=== PATIENT | male | born 1940 | race Caucasian/White ===

== ENCOUNTER 2019-01-31 00:44 | Outpatient (CLI) | payer MEDICARE, MEDICAID, SELFPAY ==
--- NOTE | 2019-01-31 14:45 | DI.MRI_ITS ---
SYMPTOMS/DIAGNOSIS: NECK PAIN, CERVICAL SPONDYLOSIS WITHOUT MYELOPATHY, M47.812 MRI OF THE CERVICAL SPINE: Comparison is made with plain films from [facility] dated . T 1, T 2, STIR, FLAIR and T 2 3D sagittal and gradient echo axial sequences were performed. The exam is limited by patient motion. There are degenerative changes at C 1 - 2. There are small endplate osteophytes which are eccentric toward the right at C 2 - 3. 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 There is slight disc bulging at C 4 - 5. There are small endplate osteophytes and mild disc bulging at C 5 - 6. At C 6 - 7, there is a focal central disc protrusion which does not appear to impinge on the cord. The marrow signal and cord signal appear normal. IMPRESSION: Small central disc protrusion at C 6 - 7 without definite cord impingement. Mild degenerative disc changes. Limited exam due to patient motion.
== END 2019-01-31 01:04 ==
PROVIDERS: PCP Neuromusculoskeletal Medicine & OMM; Visit Provider Nurse Practitioner Family
DX: M54.2 Cervicalgia (principal); M47.812 Spondylosis without myelopathy or radiculopathy, cervical region; M50.223 Other cervical disc displacement at C6-C7 level
CPT/HCPCS: 72141

== ENCOUNTER 2019-03-22 08:25 | Outpatient (CLI) | payer MEDICARE, MEDICAID, SELFPAY | END 2019-03-22 08:45 | PROVIDERS: PCP Neuromusculoskeletal Medicine & OMM; Visit Provider Internal Medicine Cardiovascular Disease | DX: I25.10 Atherosclerotic heart disease of native coronary artery without angina pectoris (principal); I10 Essential (primary) hypertension; E78.5 Hyperlipidemia, unspecified; J44.9 Chronic obstructive pulmonary disease, unspecified; E11.9 Type 2 diabetes mellitus without complications | CPT/HCPCS: 99205; 93005; 93010 ==

== ENCOUNTER 2019-06-02 09:39 | Emergency (ER) | payer MEDICARE, MEDICAID, SELFPAY ==
[2019-06-02] VITALS (7 sets, daily range): BP systolic 116–124; BP diastolic 70–79; PULSE 69–75; RESP 20; TEMP 36.7–37.3; O2SAT 90–98
--- NOTE | 2019-06-02 10:10 | ED.GENADUL_ITS ---
Discharge Plan Disposition Patient Disposition: HOME Condition: Stable Discharge Details Chief Complaint: Orthopedic Clinical Impression: Acute leg pain, Abdominal pain, Fall Primary Care Provider: Amarjit Galeana ED Provider: Mayuri Martin Home Meds and New Rx's Prescriptions: No Action multivitamin Tablet 1 tab PO DAILY RF: 0 furosemide 40 mg Tablet 40 mg PO DAILY RF: 0 metoprolol succinate 50 mg Tablet Extended Release 24 Hr 50 mg PO DAILY RF: 0 omeprazole 40 mg Capsule,Delayed Release(Dr/Ec) 40 mg PO DAILY RF: 0 ferrous sulfate 325 mg (65 mg iron) Tablet 325 mg PO DAILY RF: 0 gabapentin 300 mg Capsule 600 mg PO BID RF: 0 pravastatin 20 mg Tablet 20 mg PO DAILY RF: 0 sertraline 50 mg Tablet 50 mg PO DAILY RF: 0 Flovent HFA 110 mcg/actuation Hfa Aerosol Inhaler 2 puff INHALATION BID RF: 0 Incruse Ellipta 62.5 mcg/actuation Blister With Device 1 inh INHALATION DAILY RF: 0 levothyroxine 150 mcg capsule 200 mcg PO DAILY RF: 0 acetaminophen 500 mg capsule 1,000 mg PO Q8H RF: 0 nitroglycerin 0.4 mg tablet, sublingual 0.4 mg SL Q5M PRNRF: 0 rifampin 300 mg capsule 300 mg PO BID RF: 0 sennosides [senna] 8.6 mg tablet 17.2 mg PO BID PRNRF: 0 ciprofloxacin HCl 500 mg Tablet 500 mg PO BID RF: 0 aspirin [Aspirin Low Dose] 81 mg Tablet,Delayed Release (Dr/Ec) 81 mg PO BID RF: 0 Discharge Instructions Instructions: Leg Pain (ED) Additional Instructions: Please drink plenty of fluids. Rest activities as tolerated. Walk with walker. Continue your daily medications. Recheck with your primary care doctor in the next 2 to 3 days. Your imaging studies show an abnormality to the distal esophagus which requires further follow-up with your primary care doctor. Please discuss these results with your PCP. There are no fractures of your leg today. For any increase in pain, difficulty walking, increase in ill feeling or alarming symptoms have immediate reevaluation as discussed Medical Decision Making Is a 78-year-old patient who presents after a fall which occurred 3 days ago. Patient reports a slip and fall onto his right side. Patient reports striking his right shoulder and right leg. Patient denies obviously striking head or neck. Patient does report primary complaint for which he is requesting evaluation in the emergency room today relates to left leg pain. Patient is complaining of left knee and tib-fib pain. Patient has a complicated medical history including coronary artery disease, anemia, neck pain, back pain, chronic pain in legs, COPD, depression, diabetes type 2, DJD, history of DVTs, history of GERD, hypertension, hyperlipidemia, hypothyroidism, obesity, obstructive sleep apnea. Patient is compliant with his daily medications. Patient also has a complicated surgical history specifically patient has had several lower extremity surgeries and has large surgical scars. Most recent of patient surgeries was done in February in [facility] he had an infection in the lower leg on the left at the area of the sharif and ultimately needed a cleanout of his hardware and had a large surgical flap. Patient reports he is now on chronic antibiotics for this reason specifically Cipro and rifampin. Patient's primary concern today is left leg pain resulting after his fall 3 days ago. Patient has been able to ambulate at home with the use of a walker. Patient is complaining of left knee and sharif pain as well as pain behind the left leg extending from the hamstring to the calf. Patient is requesting x-rays of his lower leg. Patient is also complaining of left shoulder pain. On exam patient has significantly chronic changes of the lower legs with large surgical scars and soft tissue deformities. Bilateral lower leg edema. Patient does have tenderness of the left knee as well as the sharif area. Mild warmth is present at this site which patient's reports is his baseline. Was seen by his surgeon earlier in the week and was advised that they had no significant concerns at this time. Labs ordered as well as x-rays. Ultrasound ordered of left leg. Given patient's use of blood thinner and his obvious fall will check patient's head and cervical spine. Patient agrees with this plan of care. Patient's ultrasound FINDINGS: Duplex evaluation of deep venous system of the left lower extremity was performed according to the usual protocol. There is no evidence of deep venous thrombosis. No Sanders's cyst identified. Note is made of left calf edema which is nonspecific. There is subcutaneous f luid collection in the proximal calf, this is nonspecific and predominantly cystic with minimal septations and measures up to 10 x 2 x 6 cm in diameter. No increased vascular flow identified associated with this finding. IMPRESSION: No evidence of DVT. Left calf fluid collection noted which is nonspecific and of uncertain age. Patient x-rays are unremarkable for identified fractures. [id number] -discussed with Dr. Chelsy Barnes who also evaluated the patient at this time and recommends oral oxycodone as well as Valium for pain relief. Patient does take daily oxycodone. Recommend urinalysis to be sure there is no identifiable infection and consider CT of chest and abdomen for patient's complaints of abdominal pain. Otherwise Dr. Barnes feels patient's pain in the leg is likely attributed to the fall 3 days ago and is likely muscle strain on chronic pain. EXAM: CT CHEST/ABD/PEL WO CLINICAL HISTORY: pain after fall. on blood thinner TECHNIQUE: CT examination of the chest, abdomen, and pelvis was performed without contrast administration due to patient's reported history of contrast allergy. COMPARISON: No exams were available for comparison FINDINGS: There is mild cardiac enlargement. There are trace bilateral pleural effusions. No gross pulmonary consolidation or pulmonary edema. Tracheobronchial tree appears intact. No vascular abnormality seen by noncontrast criteria. Esophageal wall appears thickened, particularly distally. Possibility of esophagitis or esophageal tumor would have to be raised; endoscopic correlation should be considered. No mediastinal or hilar adenopathy. No pneumothorax. No fracture seen involving the bony thorax. Liver and spleen have an unremarkable noncontrast appearance. Gallbladder and bile ducts are CT normal. Pancreas is atrophic but otherwise unremarkable. Spleen appears normal. Adrenals appear normal. 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 Abdominal aorta is of normal diameter. No abdominal or pelvic adenopathy. No focal bowel pathology. No significant abdominal wall hernia. No free intraperitoneal air. Trace intraperitoneal fluid noted which is nonspecific. Significant bony lesion identified on scanning of the abdomen and pelvis apart from degenerative changes of the hips and lumbosacral spine. IMPRESSION: Esophageal wall thickening is noted involving the mid to distal esophagus; inflammatory or neoplastic process should be considered. Correlation with esophagoscopy recommended. No evidence of obstructive process. CT findings were discussed with the patient recommending and reporting that esophageal findings will require further evaluation with primary care doctor. At this time patient's urinalysis had returned with inability to do full urinalysis due to dark coloration of the urine. I have offered patient IV fluids but at this time he declines would prefer to hydrate by mouth. Patient was able to tolerate multiple cups of fluid without difficulty. At this time patient is feeling well. He was provided pain medication as well as muscle relaxant. Patient does feel he can ambulate without difficulty. I find no admittable diagnosis at this time. Family feel comfortable discharge home. The patient was stable and requested discharge. Prior to discharge, my usual and customary return precautions were reviewed with the patient - this included follow-up instructions and reasons to return to the Emergency Department if conditions worsens, does not improve as expected, or other new concerns arise. HPI General Date/Time Provider Initiated Documentation: 06/02/19 09:53 . HPI Narrative: This is a 78-year-old patient who presents to the emergency room for complaints of fall 3 days ago. Patient slipped and fell landing on his right side. Patient is complaining of right shoulder pain posteriorly. Patient primarily concerned with left leg pain. Patient reports complicated surgical history involving both of his lower legs. Patient has multiple reconstructive surgeries including rods and plates with associated infections requiring cleanout surgery. Patient reports most recent surgery in February on the left leg. Patient reports since his slip and fall 3 days ago he has had significant left leg pain. Patient concerned the possibility of fracture. Patient also reports an associated anorexia for the last 3 days having difficulty eating due to mild nausea. Patient is on a blood thinner denies obviously striking his head. Patient does report neck and right shoulder pain. Denies difficulty breathing or shortness of breath or wheezing. Patient denies fevers or chills. Denies abdominal pain. Denies chest pain with deep breathing. Patient is able to ambulate with use of walker however does report persistent left leg pain and he primarily complains of pain in the backside of the leg from the hamstring to the calf. Patient has chronic deformities of his bilateral lower legs therefore swelling is difficult to assess. Related Data Home Medications Medication Instructions Recorded Confirmed ferrous sulfate 325 mg PO DAILY 03/03/19 06/02/19 fluticasone propionate [Flovent 2 puff INHALATION BID 03/03/19 06/02/19 HFA] furosemide 40 mg PO DAILY 03/03/19 06/02/19 gabapentin 600 mg PO BID 03/03/19 06/02/19 metoprolol succinate 50 mg PO DAILY 03/03/19 06/02/19 multivitamin 1 tab PO DAILY 03/03/19 06/02/19 omeprazole 40 mg PO DAILY 03/03/19 06/02/19 pravastatin 20 mg PO DAILY 03/03/19 06/02/19 sertraline 50 mg PO DAILY 03/03/19 06/02/19 umeclidinium [Incruse Ellipta] 1 inh INHALATION DAILY 03/03/19 06/02/19 acetaminophen 500 mg capsule 1,000 mg PO Q8H cap 03/22/19 06/02/19 levothyroxine 150 mcg capsule 200 mcg PO DAILY 03/22/19 06/02/19 nitroglycerin 0.4 mg sublingual 0.4 mg SL Q5M PRN 03/22/19 06/02/19 tablet rifampin 300 mg capsule 300 mg PO BID cap 03/22/19 06/02/19 sennosides 8.6 mg tablet 17.2 mg PO BID PRN tab 03/22/19 06/02/19 aspirin [Aspirin Low Dose] 81 mg PO BID 06/02/19 06/02/19 ciprofloxacin HCl 500 mg PO BID 06/02/19 06/02/19 Allergies Allergy/AdvReac Type Severity Reaction Status Date / Time Iodine and Iodide Containing Allergy Unverified 06/02/19 09:51 Produc General Stated Complaint: Orthopedic SAADIA: 3 Review of Systems All systems reviewed & are unremarkable except as noted in HPI and below Constitutional Constitutional: Denies chills, Denies fatigue, Denies fever(s), Denies headache(s) and Denies malaise ENT Ears, Nose, Mouth, and Throat: Denies headache(s) and Reports neck pain Cardiovascular Cardiovascular: Denies chest pain, Denies dyspnea and Denies dyspnea on exertion Respiratory Respiratory: Reports cough, Denies dyspnea and Denies dyspnea on exertion Gastrointestinal Gastrointestinal: Denies abdominal pain, Denies diarrhea, Reports nausea and Denies vomiting Genitourinary Genitourinary: Denies dysuria Musculoskeletal Musculoskeletal: Reports back pain, Reports limited range of motion, Reports neck pain, Denies numbness and Denies tingling Integumentary/Breasts Skin/Breast: Reports erythema Neurologic Neurologic: Denies headache(s), Denies numbness and Denies tingling Endocrine Endocrine: Denies fatigue [facility] Medical History Acute hypoxemic respiratory failure (Acute) Anemia (Chronic) Atherosclerosis of coronary artery without angina pectoris (Acute) Bilateral edema of lower extremity (Acute) CAD (coronary artery disease) (Chronic) Cervical disc disorder (Acute) Cervical facet joint syndrome (Acute) Cervical spondylosis without myelopathy (Acute) Cervico-occipital neuralgia (Acute) Chronic infection of prosthetic knee (Acute) Coagulase-negative staphylococcal infection (Acute) COPD (chronic obstructive pulmonary disease) (Chronic) Demand ischemia (Acute) Depression (Chronic) Depressive disorder (Acute) Diabetes mellitus type II, controlled, with no complications (Acute) DJD (degenerative joint disease) (Chronic) DJD (degenerative joint disease) of knee (Acute) DVT (deep venous thrombosis) (Chronic) GERD (gastroesophageal reflux disease) (Chronic) HTN (hypertension) (Chronic) Hyperlipidemia (Acute) Hyperplasia, prostate (Acute) Hypothyroidism (Chronic) Infection of left knee (Acute) Intermittent claudication of lower extremity due to atherosclerosis (Acute) NSTEMI (non-ST elevated myocardial infarction) (Acute ~02/2019) Obesity (Chronic) Occipital neuralgia (Acute) CARIDAD (obstructive sleep apnea) (Chronic) Pneumonia (Acute) Reactive airway disease (Acute) Shock (Acute) Social History Smoking/Tobacco Use Status: Never Substance use type: does not use Do you feel safe at home: Yes Do you feel safe in your relationship?: Yes Exam Narrative Exam Narrative: CONST: Healthy appearing patient, in no acute distress. Well hydrated. Alert and alert. HENMT: Head nomocephalic, normal to inspection. Atraumatic. Hearing grossly normal. External ear canal no erythema or swelling. TM normal bilaterally. Nose normal to inspection. No rhinnorhea. Normal facial exam. Oral mucosa normal. Tounge normal. Dentition normal. Normal posterior oropharynx. Uvula midline. EYES: General normal appearance. Alignment normal. Eyelids normal. Conjunctiva normal. Sclera normal. PERRL. NECK: Normal visual inspection. FROM. No lymphadenopathy. Trachea midline. Mild midline tenderness as well as right lateral tenderness of the neck musculature. CHEST: Normal insepection of the chest. No chest or rib pain with palpation. RESP: Normal respiratory effort. Speaking full sentences. No cough. No wheezing. No retractions. Clear to auscaltation. Breath sound equal and present bilaterally. CARDIO: No JVD. Normal PMI. Regular Rate. Regular Rhythm. Normal peripheral pulses. GI: Normal inspection of abdomen. No distension. Soft. Nontender. Bowel sounds present in all 4 quadrants. No rebound. No gaurding. MUSCULOSKELETAL: Mild right scapula pain with palpation. Full range of motion of the right shoulder. Patient with chronic deformities of the lower legs bilaterally large surgical scars bilaterally. Edematous bilateral lower legs which appear chronic. Erythema and warmth notable of the left anterior leg from the knee to the pretibial sharif. Patient points to the knee as site of pain and posterior leg as site of pain. Patient does have any pain with palpation. Limited range of motion of left knee. Patient with calf pain with palpation. Pulses are intact distally bilaterally and equal. SKIN: Normal. Dry. No rashes. NEURO: Alert and awake. Speech clear. PSYCH: Normal affect. Cooperative. Course Vital Signs Vital signs: Vital Signs Temperature 36.7 C 06/02/19 09:46 Pulse 75 06/02/19 09:46 Respiratory Rate 20 06/02/19 09:46 Blood Pressure 116/70 06/02/19 09:46 Pulse Oximetry 98 06/02/19 09:46 Temperature 36.7 C 06/02/19 09:46 Temperature Source Skin 06/02/19 09:46 Pulse 75 06/02/19 09:46 Respiratory Rate 20 06/02/19 09:46 Respiratory Effort 06/02/19 09:49 Blood Pressure 116/70 06/02/19 09:46 Pulse Oximetry 98 06/02/19 09:46 Oxygen Delivery Method Room Air 06/02/19 09:46 Oxygen Flow Rate 0 06/02/19 09:46 Pain Level 4 06/02/19 09:46 Comment 06/02/19 09:46
[2019-06-02 10:44] LABS: Abs Immature Grans 0.01 k/cumm (0.0-0.09); Absolute Basophil Count 0.01 k/cumm (0.0-0.2); Absolute Eosinophil Count 0.06 k/cumm (0.0-0.7); Absolute Lymphocyte Count 0.71 k/cumm (1.2-3.4); Absolute Monocyte Count 0.56 k/cumm (0.11-0.7); Absolute Neutrophil Count 4.29 k/cumm (1.2-6.7); Basophils % 0.2; Eosinophils % 1.1; HCT 33.2 % (40.0-50.0); HGB 10.6 g/dL (13.5-17.5); Immature Grans % 0.2; Lymphocytes % 12.6; Mean Corp. HGB Concentration 31.9 g/dL (32.0-36.0); Mean Corpuscular Volume 94.1 fL (80-95); Mean Platelet Volume 9.9 fL (8.0-11.0); Monocytes % 9.9; Platelet Count 177 x1000/uL (130-400); RBC 3.53 m/cumm (4.50-6.00); White Blood Cell Count 5.64 k/cumm (4.4-10.8)
[2019-06-02 10:58] LABS: ALT 13 U/L (16-63); AST 16 U/L (15-37); Albumin 2.6 g/dL (3.4-5.0); Alkaline Phosphatase 83 U/L (46-116); Anion Gap 10.1 mmol/L (3-11); BUN 11 mg/dL (7-18); Bilirubin, Total 0.5 mg/dL (0.2-1.0); CO2 25.9 mmol/L (21.0-32.0); CREATININE 0.64 mg/dL (0.70-1.30); Calcium 8.6 mg/dL (8.5-10.1); Chloride 104 mmol/L (98-107); Glucose 117 mg/dL (74-106); Potassium 4.2 mmol/L (3.5-5.1); Sodium 140 mmol/L (136-145); Total Protein 7.3 g/dL (6.4-8.2)
--- NOTE | 2019-06-02 10:58 | DI.CT_ITS ---
EXAM: CT HEAD CERVICAL SPINE WO CLINICAL HISTORY: fall, on blood thinner TECHNIQUE: COMPARISON: No exams were available for comparison FINDINGS: CT examination cervical spine was performed without contrast administration with multi slice acquisit ion multiplanar reconstruction. There are marked degenerative changes of the cervical spine prominen t hypertrophic facet and endplate changes and multilevel disc space loss of height. There is no evid ence of acute fracture or dislocation. Tracheolaryngeal structures appear intact. Visualized lung a pices are clear. Noncontrast cranial CT was performed. There is moderate generalized cerebral atrophy and there are m ild patchy areas of decreased attenuation in periventricular white matter bilaterally consistent with microvascular ischemic changes. More focal decreased attenuation is also noted in basal ganglia on the right which may represent an infarct of uncertain age. No evidence of acute intracranial hemorrh age mass effect or midline shift. The orbital and temporal bone structures appear intact. Minimal mucoperiosteal thickening of the par anasal sinuses noted, mastoid air cells appear clear. No calvarial fracture seen. IMPRESSION: No evidence of acute cervical spine injury. No evidence of acute intracranial injury or hemorrhage.
--- NOTE | 2019-06-02 11:06 | DI.RAD_ITS ---
EXAM: XR THORACIC SPINE COMPLETE CLINICAL HISTORY: pain, after fall TECHNIQUE: COMPARISON: No exams were available for comparison FINDINGS: Four views were obtained. There are degenerative changes of thoracic spine. No acute fracture seen. IMPRESSION:
--- NOTE | 2019-06-02 11:09 | DI.RAD_ITS ---
EXAM: XR SHOULDER RT COMPLETE 2+V CLINICAL HISTORY: fall TECHNIQUE: COMPARISON: No exams were available for comparison FINDINGS: Four views were obtained. There are degenerative changes of the acromioclavicular and glenohumeral j oints. There is no evidence of fracture or dislocation. IMPRESSION:
--- NOTE | 2019-06-02 11:16 | DI.RAD_ITS ---
EXAM: XR KNEE LT 3V AP,LAT,RASHAAD CLINICAL HISTORY: pain, fall TECHNIQUE: COMPARISON: XR TIB/FIB LT from 06/02/2019 FINDINGS: Five views of the knee and 3 additional views of the leg were obtained. There is a total knee joint replacement with long intramedullary component of tibia. There are extensive heterotopic bony change s of region of the knee. Long femoral component also noted, cerclage wire also present associated wi th the femoral component. No evidence of acute fracture.. IMPRESSION:
--- NOTE | 2019-06-02 11:30 | DI.US_ITS ---
EXAM: US LOWER EXTREMITY VENOUS LT CLINICAL HISTORY: pain, r/o DVT TECHNIQUE: Ultrasound performed using standard protocol. COMPARISON: No exams were available for comparison FINDINGS: Duplex evaluation of deep venous system of the left lower extremity was performed according to the us ua protocol. There is no evidence of deep venous thrombosis. No Sanders's cyst identified. Note is made of left calf edema which is nonspecific. There is subcutaneous fluid collection in the proximal calf, this is nonspecific and predominantly cystic with minimal septations and measures up t o 10 x 2 x 6 cm in diameter. No increased vascular flow identified associated with this finding. IMPRESSION: No evidence of DVT. Left calf fluid collection noted which is nonspecific and of uncertain age.
--- NOTE | 2019-06-02 11:30 | DI.RAD_ITS ---
EXAM: XR CHEST 2V PA LATERAL CLINICAL HISTORY: cough TECHNIQUE: COMPARISON: No exams were available for comparison FINDINGS: Cardiac size is within normal limits. There is mild elevation of the diaphragm on the right. The leilani ngs are generally clear. No pleural effusion seen. IMPRESSION: No evidence of acute process.
--- NOTE | 2019-06-02 13:00 | DI.CT_ITS ---
EXAM: CT CHEST/ABD/PEL WO CLINICAL HISTORY: pain after fall. on blood thinner TECHNIQUE: CT examination of the chest, abdomen, and pelvis was performed without contrast administr ation due to patient's reported history of contrast allergy. COMPARISON: No exams were available for comparison FINDINGS: There is mild cardiac enlargement. There are trace bilateral pleural effusions. No gross pulmonary consolidation or pulmonary edema. Tracheobronchial tree appears intact. No vascular abnormality see n by noncontrast criteria. Esophageal wall appears thickened, particularly distally. Possibility of esophagitis or esophageal t umor would have to be raised; endoscopic correlation should be considered. No mediastinal or hilar adenopathy. No pneumothorax. No fracture seen involving the bony thorax. Liver and spleen have an unremarkable noncontrast appearance. Gallbladder and bile ducts are CT norm al. Pancreas is atrophic but otherwise unremarkable. Spleen appears normal. Adrenals appear normal . 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 Abdominal aorta is of normal diameter. No abdominal or pelvic adenopathy. No focal bowel pathology. No significant abdominal wall hernia. No free intraperitoneal air. Trace intraperitoneal fluid noted which is nonspecific. Significant bony lesion identified on scanning of the abdomen and pelvis apart from degenerative holloway ges of the hips and lumbosacral spine. IMPRESSION: Esophageal wall thickening is noted involving the mid to distal esophagus; inflammatory or neoplastic process should be considered. Correlation with esophagoscopy recommended. No evidence of obstructi ve process.
[2019-06-02] MEDS: oxyCODONE 5 MG TAB PO (14:18)
[2019-06-02] MEDS: diazePAM 5 MG TAB PO (14:18)
[2019-06-02 14:58] LABS: Clarity Clear (Clear); Specific Gravity 1.027 (1.005-1.025)
[2019-06-02 14:59] LABS: Bilirubin Color Interference (Negative); Blood Color Interference (Negative); Glucose Color Interference mg/dL (Negative); Ketones Color Interference mg/dL (Negative); Leukocyte Esterase Color Interference (Negative); Nitrite Color Interference (Negative); Urobilinogen Color Interference EU/dL (Up TO 0.2)
[2019-06-02 15:02] LABS: RBC 0-2 HPF (0-2)
[2019-06-02 15:03] LABS: Bacteria Rare HPF (Negative); C & S Indicated? No; Casts Negative LPF (Negative); Crystals Negative HPF (Negative); Epithelial Cells Few HPF (Negative); Mucus Moderate (Negative)
== END 2019-06-02 16:45 | disposition home or self-care (01) ==
PROVIDERS: Physician Assistant; Emergency Provider Physician Assistant; PCP Neuromusculoskeletal Medicine & OMM
DX: M79.605 Pain in left leg (principal); M25.512 Pain in left shoulder; W19.XXXA Unspecified fall, initial encounter; R93.3 Abnormal findings on diagnostic imaging of other parts of digestive tract; R11.0 Nausea; J44.9 Chronic obstructive pulmonary disease, unspecified; E11.9 Type 2 diabetes mellitus without complications; I10 Essential (primary) hypertension; Z79.01 Long term (current) use of anticoagulants; Z86.718 Personal history of other venous thrombosis and embolism
CPT/HCPCS: 36415; 71250; 73562; 80053; 99284; 70450; 71046; 72072; 72125; 73030; 73590; 74176; 81003; 81015; 83605; 85025; 87086; 93971; 99285

== ENCOUNTER → 2019-06-20 12:04 | Outpatient (BNVA) | payer MEDICARE, MEDICAID, SELFPAY | PROVIDERS: PCP Neuromusculoskeletal Medicine & OMM; Referring Provider Neuromusculoskeletal Medicine & OMM; Visit Provider Internal Medicine Cardiovascular Disease | DX: E78.5 Hyperlipidemia, unspecified (principal); I10 Essential (primary) hypertension; I25.10 Atherosclerotic heart disease of native coronary artery without angina pectoris; J44.9 Chronic obstructive pulmonary disease, unspecified | CPT/HCPCS: 99214 ==

== ENCOUNTER 2019-06-20 13:14 | Outpatient (CLI) | payer MEDICARE, MEDICAID, SELFPAY ==
[2019-06-20 14:21] LABS: Calculated LDL 71 mg/dL; Cholesterol 151 mg/dL (<200); HDL Cholesterol 48 mg/dL (40-60); Triglyceride 161 mg/dL (<150)
== END 2019-06-20 13:34 ==
PROVIDERS: PCP Neuromusculoskeletal Medicine & OMM; Visit Provider Internal Medicine Cardiovascular Disease
DX: E78.5 Hyperlipidemia, unspecified (principal); I25.10 Atherosclerotic heart disease of native coronary artery without angina pectoris; I10 Essential (primary) hypertension; J44.9 Chronic obstructive pulmonary disease, unspecified
CPT/HCPCS: 36415; 80061; 99214

== ENCOUNTER 2019-12-13 01:18 | Outpatient (CLI) | payer MEDICARE, MEDICAID, SELFPAY ==
--- NOTE | 2019-12-13 08:15 | DI.US_ITS ---
APPROVED REPORT EXAM: Comprehensive 2D, Doppler, and color-flow Echocardiogram Patient Location: Out-Patient Production Proofreader: Idania Mtz RDCS (AE) Indications: CAD, HTN Other Information Study Quality: Good Conclusion Normal left ventricular wall thickness and chamber size. Estimated ejection fraction is 55 to 60%. Wall motion is normal The left atrium is moderately dilated. The right atrium is mildly dilated The aortic valve is structurally normal without stenosis or regurgitation Structurally normal mitral valve. Mild mitral regurgitation Tricuspid valve is structurally normal. There is moderate tricuspid regurgitation. Estimated right ventricular systolic pressure is 46 mmHg consistent with mild pulmonary hypertension The pulmonic valve is structurally normal with trace regurgitation Mildly dilated ascending aorta, measuring 3.8 cm Wall motion Left Ventricle The left ventricle is normal size. The left ventricular systolic function is normal. The left ventric ular ejection fraction is within the normal range. There is normal left ventricular wall thickness. T here is normal LV segmental wall motion. There is no ventricular septal defect visualized. LVEF is 55 -60%. Right Ventricle The right ventricle is normal size. The right ventricular systolic function is normal. The RVSP is 45 .1 mmHg. Atria Left atrium is moderately dilated. Right atrium is mildly dilated. The interatrial septum is intact w ith no evidence for an atrial septal defect. Aortic Valve Aortic valve is trileaflet. There is no aortic valvular stenosis. No aortic regurgitation is present. Mitral Valve The mitral valve is normal in structure. No evidence of mitral valve stenosis. Mild mitral regurgitat ion. Tricuspid Valve The tricuspid valve is normal in structure. There is no tricuspid valve stenosis. Moderate tricuspid regurgitation. Pulmonic Valve The pulmonary valve is normal in structure. There is no pulmonic valvular stenosis. Trace pulmonic re gurgitation. Great Vessels The aortic root is normal in size. The ascending aorta is mildly dilated.3.8 cm IVC is normal in size and collapses >50% with inspiration. Pericardium There is no pericardial effusion. There is no pleural effusion. 2D Dimensions IVSD d PLAX 1.02 cm M: 0.6-1.2 LV Vol A2C d MOD 140.0 mL LVPW d PLAX 1.02 cm M: 0.6 - 1.2 LV Vol A4C d MOD 122.6 mL LVID d PLAX 5.71 cm M: 4.2 - 5.8 LA vol/ BSA A2C s A-L 41.2 mL/m2 LVDs 4.15 cm M: 2.5 - 4.0 LA vol/ BSA A4C s A-L 22.8 mL/m2 Ao Root d 3.05 cm M: 3.1 - 3.7 LA Vol/ BSA Biplane s A-L 32.5 mL/m2 RA Area A4C 24.59 cm2 LA Area A4C s MOD 18.22 cm2 RA Vol/ BSA A4C s A-L 38.5 mL/m2 LA Area A2C s MOD 26.02 cm2 Ao Asc Diam d 3.80 cm M: 2.6 - 3.4 LV EF A4C MOD 49.7 % LV EF Teichholz 52.5 % LV EF A2C MOD 51.5 % LVEF (Santillan's) 51.13 % M: 52 - 72 LV EF Biplane MOD 51.1 % LV Volume 97.08 mL M: 62 - 150 SV 67.97 mL LV Volume Index 44.73 mL/m2 M: 34 - 74 SV Index 31.30 mL/m2 LV Vol Biplane MOD 132.9 mL FS 27.30 % M-Mode TAPSE 3.07 cm (M/F) >1.7 LV Diastology MV E' medial 0.067 (>0.07 m/s) E/A Ratio 1.0 LV E/e MED 13.60 (<14) MV E Vmax 0.92 (0.4-1.3 m/s) MV E' lateral 0.102 (>0.1 m/s) MV A Vmax 0.90 (0.4-1.3 m/s) LV E/e LAT 9.00 (<14) MV E/A Ratio 0.98 MV E/E' medial 13.62 MV E/E' lateral 9.04 Aortic Valve LVOT Area 4.05 cm2 AoV Area Vmax 2.92 cm2 LVOT Vmax 1.28 m/s AoV Area/ BSA (Vmax) 1.35 cm2/m2 LVOT Mean Carlos. 0.81 m/s ELEAZAR Mean Carlos. 2.60 cm2 LVOT Peak Grad 6.5 mmHg ELEAZAR Mean Carlos. Index 1.20 cm2/m2 LVOT Mean Grad 3.2 mmHg LVOT VTI 0.306 m LVOT Diam s 2.25 cm AoV Vmax 1.77 m/s Velocity Ratio 0.72 AoV Mean Carlos. 1.27 m/s AoV Peak Grad 12.5 mmHg LVOT SV 123.95 mL AoV Mean Grad 6.9 mmHg AoV VTI 0.388 m AoV Area VTI 3.19 cm2 AoV Area/ BSA (VTI) 1.47 cm/m2 Mitral Valve MV DT 196 (160-240 msec) MR Vmax 4.35 m/s MV PHT 57 msec MR VTI 1.484 m MV Area PHT 3.87 cm2 MR Peak Grad 75.7 mmHg MR Mean Grad 52.3 mmHg MR PISA Radius 0.36 cm MR EROA 0.07 cm2 MR Aliasing Velocity 0.35 m/s MR PISA 0.82 cm2 Pulmonary Valve PV Vmax 1.05 (0.5-1.5 m/s) RVOT Peak Gr. 1.86 mmHg PV Peak Grad 4.4 mmHg RVOT Mean Gr. 1.15 mmHg PV Mean Grad 2.5 mmHg RVOT VTI 0.179 m PV VTI 0.248 m RVOT Vmax 0.68 m/s Tricuspid Valve TV Vmax 0.74 (0.3-1.0 m/s) TR Vmax 3.24 m/s TR Peak Grad 42.0 mmHg RA Pressure 3.00 mmHg RVSP (TR) 45.1 mmHg
== END 2019-12-13 01:38 ==
PROVIDERS: PCP Neuromusculoskeletal Medicine & OMM; Visit Provider Internal Medicine Cardiovascular Disease
DX: I25.10 Atherosclerotic heart disease of native coronary artery without angina pectoris (principal); I10 Essential (primary) hypertension; I27.20 Pulmonary hypertension, unspecified; E78.5 Hyperlipidemia, unspecified
CPT/HCPCS: 93306

== ENCOUNTER → 2019-12-18 12:32 | Outpatient (BNVA) | payer MEDICARE, MEDICAID, SELFPAY | PROVIDERS: PCP Neuromusculoskeletal Medicine & OMM; Referring Provider Neuromusculoskeletal Medicine & OMM; Visit Provider Internal Medicine Cardiovascular Disease | DX: I25.10 Atherosclerotic heart disease of native coronary artery without angina pectoris (principal); E78.5 Hyperlipidemia, unspecified; I10 Essential (primary) hypertension | CPT/HCPCS: 99214 ==

== ENCOUNTER 2019-12-29 04:08 | Outpatient (CLI) | payer MEDICARE, MEDICAID, SELFPAY ==
--- NOTE | 2019-12-29 | DI.US_ITS ---
EXAM: US LOWER EXTREMITY VENOUS LT CLINICAL HISTORY: SWELLING, PAIN LT BACK OF CALF, ? DVT TECHNIQUE: Left lower extremity venous ultrasound performed using grayscale, color-flow, and spectra l Doppler analysis. COMPARISON: US US LOWER EXTREMITY VENOUS LT from 06/02/2019 FINDINGS: The left common femoral, femoral and popliteal veins demonstrate normal compressibility, augmentation , and color Doppler. The posterior tibial veins are patent. The saphenofemoral junction is unremarka ble. There is no evidence of a Sanders cyst. Edema is seen in the soft tissues of the ankle and calf. IMPRESSION: No DVT. DATA REPOSITORY:
== END 2019-12-29 04:28 ==
PROVIDERS: PCP Neuromusculoskeletal Medicine & OMM; Visit Provider Internal Medicine Infectious Disease
DX: R22.42 Localized swelling, mass and lump, left lower limb (principal); M79.662 Pain in left lower leg
CPT/HCPCS: 93971

== ENCOUNTER → 2020-06-28 13:33 | Outpatient (BNVA) | payer MEDICARE, MEDICAID, SELFPAY | PROVIDERS: PCP Neuromusculoskeletal Medicine & OMM; Referring Provider Neuromusculoskeletal Medicine & OMM; Visit Provider Internal Medicine Cardiovascular Disease | DX: I25.10 Atherosclerotic heart disease of native coronary artery without angina pectoris (principal); E78.5 Hyperlipidemia, unspecified; I10 Essential (primary) hypertension | CPT/HCPCS: 99212; 99442 ==

== ENCOUNTER 2021-09-04 12:00 | Outpatient (RCR) | payer MEDICARE, MEDICAID, SELFPAY ==
[2021-08-14] MEDS: Normal Saline Flush 10 ML SYR IVP (09:37)
[2021-08-14 10:02] LABS: Abs Immature Grans 0.12 10^3/uL (0.0-0.06); HCT 22.9 % (40.0-50.0); HGB 7.3 g/dL (13.5-17.5); MCH 29.4 pg (27.0-33.0); MCHC 31.9 % (32.0-36.0); MCV 92.3 fL (80-95); MPV 10.9 fL (8.0-11.0); Nucleated RBC 0 %; RBC 2.48 10^6/uL (4.36-5.78); RDW 15.5 % (11.8-14.1); RDW-SD 51.5 fL; WBC 2.58 10^3/uL (4.4-10.8)
[2021-08-14 10:18] LABS: ALT 14 U/L (16-63); AST 13 U/L (15-37); Albumin 2.4 g/dL (3.4-5.0); Alkaline Phosphatase 96 U/L (46-116); Anion Gap 7.9 mmol/L (3-11); BUN 13 mg/dL (7-18); Bilirubin, Total 0.4 mg/dL (0.2-1.0); CO2 28.1 mmol/L (21.0-32.0); CREATININE 0.8 mg/dL (0.70-1.30); Calcium 8.4 mg/dL (8.5-10.1); Chloride 104 mmol/L (98-107); Glucose 120 mg/dL (74-106); Potassium 3.9 mmol/L (3.5-5.1); Sodium 140 mmol/L (136-145); Total Protein 6.8 g/dL (6.4-8.2)
[2021-08-14 10:29] LABS: Absolute Basophil Count 0.05 10^3/uL (0.0-0.2); Absolute Eosinophil Count 0.28 10^3/uL (0.0-0.7); Absolute Lymphocyte Count 0.95 10^3/uL (1.2-3.4); Absolute Monocyte Count 0.23 10^3/uL (0.1-0.8); Absolute Neutrophil Count 1.01 10^3/uL (1.2-6.7); Bands % 2; Metamyelocytes % 1; Platelet Count 63 10^3/uL (130-400)
[2021-08-14 10:30] LABS: Hypochromasia 2+; Poikilocytes 2+
[2021-08-14 10:37] LABS: Diff Comment Manual Differential
[2021-08-14 11:33] VITALS: BP 113/70; PULSE 61; RESP 18; TEMP 36.1; O2SAT 98
[2021-08-14 11:50] VITALS: BP 117/66; PULSE 60; RESP 18; TEMP 36.4; O2SAT 97
[2021-08-14 12:05] VITALS: BP 107/61; PULSE 58; RESP 18; TEMP 36.5; O2SAT 98
[2021-08-14 12:40] VITALS: BP 122/68; PULSE 61; RESP 18; TEMP 36.6; O2SAT 97
[2021-08-14 13:25] VITALS: BP 122/68; PULSE 58; RESP 18; TEMP 36.3; O2SAT 96
[2021-08-28] VITALS (8 sets, daily range): BP systolic 101–121; BP diastolic 56–73; PULSE 60–70; RESP 16–20; TEMP 36.1–36.7; O2SAT 92–98
[2021-08-28] MEDS: Normal Saline Flush 10 ML SYR IVP ×2 (09:57→12:45)
[2021-08-28 10:16] LABS: HCT 22.1 % (40.0-50.0); MCH 28.6 pg (27.0-33.0); MCHC 31.7 % (32.0-36.0); MCV 90.2 fL (80-95); Nucleated RBC 0 %; RBC 2.45 10^6/uL (4.36-5.78); RDW 16.5 % (11.8-14.1); RDW-SD 52.7 fL; WBC 2.44 10^3/uL (4.4-10.8)
[2021-08-28 10:17] LABS: Abs Immature Grans 0.14 10^3/uL (0.0-0.06); Absolute Monocyte Count 0.17 10^3/uL (0.1-0.8)
[2021-08-28 10:46] LABS: ALT 21 U/L (16-63); AST 17 U/L (15-37); Absolute Eosinophil Count 0.24 10^3/uL (0.0-0.7); Absolute Lymphocyte Count 0.98 10^3/uL (1.2-3.4); Albumin 2.5 g/dL (3.4-5.0); Alkaline Phosphatase 110 U/L (46-116); Anion Gap 5.9 mmol/L (3-11); Atypical Lymphocytes % 3; BUN 13 mg/dL (7-18); Bilirubin, Total 0.6 mg/dL (0.2-1.0); CO2 30.1 mmol/L (21.0-32.0); CREATININE 0.9 mg/dL (0.70-1.30); Calcium 8.4 mg/dL (8.5-10.1); Chloride 102 mmol/L (98-107); Glucose 136 mg/dL (74-106); Metamyelocytes % 3; Potassium 4.1 mmol/L (3.5-5.1); Sodium 138 mmol/L (136-145); Total Protein 7.5 g/dL (6.4-8.2)
[2021-08-28 10:47] LABS: Diff Comment Manual Differential; Platelet Count 37 10^3/uL (130-400)
[2021-08-28 10:48] LABS: Hypochromasia 2+
[2021-08-28 10:50] LABS: Absolute Neutrophil Count 0.88 10^3/uL (1.2-6.7); Bands % 2
[2021-08-28 10:51] LABS: Polychromasia Present
[2021-08-28 10:52] LABS: Poikilocytes 2+
[2021-08-29 09:50] LABS: Creatine Kinase 62 U/L (39-308)
[2021-08-29 12:24] LABS: C-Reactive Protein 11.01 mg/dL (0.0-0.3)
[2021-09-04] MEDS: Normal Saline Flush 10 ML SYR IVP (09:20)
[2021-09-04 09:36] LABS: Abs Immature Grans 0.31 10^3/uL (0.0-0.06); HCT 21.8 % (40.0-50.0); MCH 27.1 pg (27.0-33.0); MCHC 31.2 % (32.0-36.0); MCV 86.9 fL (80-95); Nucleated RBC 0 %; RBC 2.51 10^6/uL (4.36-5.78); RDW 17.5 % (11.8-14.1); RDW-SD 54.3 fL; WBC 2.81 10^3/uL (4.4-10.8)
[2021-09-04 09:48] LABS: ALT 31 U/L (16-63); AST 15 U/L (15-37); Albumin 2.8 g/dL (3.4-5.0); Alkaline Phosphatase 94 U/L (46-116); Anion Gap 8.9 mmol/L (3-11); BUN 14 mg/dL (7-18); Bilirubin, Total 0.5 mg/dL (0.2-1.0); CO2 28.1 mmol/L (21.0-32.0); CREATININE 0.9 mg/dL (0.70-1.30); Calcium 8.6 mg/dL (8.5-10.1); Chloride 102 mmol/L (98-107); Glucose 128 mg/dL (74-106); Potassium 4.4 mmol/L (3.5-5.1); Sodium 139 mmol/L (136-145); Total Protein 7.5 g/dL (6.4-8.2)
[2021-09-04 10:20] LABS: HGB 6.8 g/dL (13.5-17.5); Platelet Count 30 10^3/uL (130-400)
[2021-09-04 10:21] LABS: Absolute Lymphocyte Count 1.01 10^3/uL (1.2-3.4); Absolute Monocyte Count 0.06 10^3/uL (0.1-0.8); Absolute Neutrophil Count 1.26 10^3/uL (1.2-6.7); Atypical Lymphocytes % 2; Bands % 8
[2021-09-04 10:22] LABS: Absolute Eosinophil Count 0.25 10^3/uL (0.0-0.7); Metamyelocytes % 1; Myelocytes % 6
[2021-09-04 10:23] LABS: Diff Comment Manual Differential; Hypochromasia 1+; Other Cells % 1
[2021-09-04 11:18] VITALS: BP 113/70; PULSE 68; RESP 18; TEMP 36; O2SAT 97
[2021-09-04 11:33] VITALS: BP 112/64; PULSE 61; RESP 19; TEMP 36.6; O2SAT 97
[2021-09-04 11:50] VITALS: BP 114/62; PULSE 67; RESP 17; TEMP 36.5; O2SAT 97
[2021-09-04 12:03] VITALS: BP 117/63; PULSE 60; RESP 19; TEMP 36.6; O2SAT 99
[2021-09-04 13:03] VITALS: BP 108/67; PULSE 74; RESP 20; TEMP 36.7; O2SAT 96
[2021-09-04 13:35] VITALS: BP 117/70; PULSE 78; RESP 20; TEMP 36.8; O2SAT 98
[2021-09-05 10:56] LABS: C-Reactive Protein 4.39 mg/dL (0.0-0.3); Creatine Kinase 33 U/L (39-308)
== END 2021-09-04 23:59 | disposition home or self-care (01) ==
LOC: INF 12:00
PROVIDERS: Internal Medicine Addiction Medicine; PCP Neuromusculoskeletal Medicine & OMM; Visit Provider Nurse Practitioner Family
DX: D46.Z Other myelodysplastic syndromes (principal)
CPT/HCPCS: 36430; 36592; 80053; 82550; 86850; 86900; 86901; 86920; 86945; 85025; 86140; 86644; P9016

== ENCOUNTER 2021-10-02 09:00 | Outpatient (RCR) | payer MEDICARE, MEDICAID, SELFPAY ==
[2021-09-05 00:07] VITALS: BP 117/70; PULSE 78; RESP 20; TEMP 36.8
[2021-09-11 09:49] LABS: HCT 22.1 % (40.0-50.0); HGB 7.1 g/dL (13.5-17.5); MCHC 32.1 % (32.0-36.0); Nucleated RBC 0 %; RBC 2.54 10^6/uL (4.36-5.78); RDW-SD 52.4 fL; WBC 2.62 10^3/uL (4.4-10.8)
[2021-09-11 10:01] LABS: ALT 42 U/L (16-63); AST 20 U/L (15-37); Albumin 3.2 g/dL (3.4-5.0); Alkaline Phosphatase 93 U/L (46-116); Anion Gap 7.9 mmol/L (3-11); BUN 19 mg/dL (7-18); Bilirubin, Total 0.6 mg/dL (0.2-1.0); CO2 29.1 mmol/L (21.0-32.0); CREATININE 0.8 mg/dL (0.70-1.30); Calcium 8.7 mg/dL (8.5-10.1); Chloride 100 mmol/L (98-107); Glucose 118 mg/dL (74-106); Potassium 4.2 mmol/L (3.5-5.1); Sodium 137 mmol/L (136-145); Total Protein 7.9 g/dL (6.4-8.2)
[2021-09-11 10:20] LABS: Platelet Count 19 10^3/uL (130-400)
[2021-09-11 10:21] LABS: Absolute Eosinophil Count 0.18 10^3/uL (0.0-0.7); Absolute Lymphocyte Count 0.68 10^3/uL (1.2-3.4); Absolute Monocyte Count 0.13 10^3/uL (0.1-0.8); Absolute Neutrophil Count 1.52 10^3/uL (1.2-6.7); Atypical Lymphocytes % 1; Bands % 10; Diff Comment Manual Differential; Metamyelocytes % 2; Other Cells % 2
[2021-09-11 10:22] LABS: RBC Morphology Normal
[2021-09-11] MEDS: Normal Saline Flush 10 ML SYR IVP (10:30)
[2021-09-12] VITALS (7 sets, daily range): BP systolic 117–131; BP diastolic 65–76; PULSE 63–82; RESP 17–19; TEMP 36.4–36.7; O2SAT 96–98
[2021-09-12] MEDS: Normal Saline Flush 10 ML SYR IVP (10:22)
[2021-09-15] VITALS (7 sets, daily range): BP systolic 111–129; BP diastolic 64–73; PULSE 65–76; RESP 17–18; TEMP 36.3–36.5; O2SAT 97–98
[2021-09-15 08:43] LABS: Absolute Basophil Count 0.02 10^3/uL (0.0-0.2); HCT 22.6 % (40.0-50.0); HGB 7.4 g/dL (13.5-17.5); MCH 28.4 pg (27.0-33.0); MCHC 32.7 % (32.0-36.0); MCV 86.6 fL (80-95); Nucleated RBC 1 %; RBC 2.61 10^6/uL (4.36-5.78); RDW 16.5 % (11.8-14.1); RDW-SD 51.1 fL; WBC 2.37 10^3/uL (4.4-10.8)
[2021-09-15 08:56] LABS: Platelet Count 17 10^3/uL (130-400)
[2021-09-15 09:03] LABS: Absolute Lymphocyte Count 0.69 10^3/uL (1.2-3.4); Absolute Monocyte Count 0.09 10^3/uL (0.1-0.8); Absolute Neutrophil Count 1.28 10^3/uL (1.2-6.7); Atypical Lymphocytes % 1; Bands % 5
[2021-09-15] MEDS: Normal Saline Flush 10 ML SYR IVP (09:03)
[2021-09-15 09:04] LABS: Absolute Eosinophil Count 0.17 10^3/uL (0.0-0.7); Diff Comment Manual Differential; Metamyelocytes % 2; Myelocytes % 2
[2021-09-15 09:05] LABS: RBC Morphology Normal
[2021-09-15 09:12] LABS: Other Cells % 1
[2021-09-18] VITALS (7 sets, daily range): BP systolic 115–149; BP diastolic 68–84; PULSE 62–74; RESP 18; TEMP 36.3–36.5; O2SAT 94–96
[2021-09-18 08:22] LABS: HCT 22.9 % (40.0-50.0); HGB 7.4 g/dL (13.5-17.5); MCH 28.6 pg (27.0-33.0); MCHC 32.3 % (32.0-36.0); MCV 88.4 fL (80-95); Nucleated RBC 0 %; RBC 2.59 10^6/uL (4.36-5.78); RDW 16.6 % (11.8-14.1); RDW-SD 52.8 fL
[2021-09-18] MEDS: Normal Saline Flush 10 ML SYR IVP (08:22)
[2021-09-18 08:37] LABS: Absolute Basophil Count 0.04 10^3/uL (0.0-0.2); Absolute Eosinophil Count 0.24 10^3/uL (0.0-0.7); Absolute Lymphocyte Count 0.65 10^3/uL (1.2-3.4); Absolute Monocyte Count 0.02 10^3/uL (0.1-0.8); Absolute Neutrophil Count 0.84 10^3/uL (1.2-6.7); Bands % 3; Diff Comment Manual Differential; Metamyelocytes % 2; Myelocytes % 2; Other Cells % 3; RBC Morphology Normal
[2021-09-18 08:39] LABS: Platelet Count 15 10^3/uL (130-400); WBC 1.96 10^3/uL (4.4-10.8)
[2021-09-24] VITALS (7 sets, daily range): BP systolic 120–144; BP diastolic 63–87; PULSE 64–69; RESP 18–20; TEMP 36.1–36.5; O2SAT 94–99
[2021-09-24] MEDS: Normal Saline Flush 10 ML SYR IVP (11:16)
[2021-09-24 12:10] LABS: HCT 19.3 % (40.0-50.0); HGB 6.3 g/dL (13.5-17.5)
[2021-09-25] VITALS (9 sets, daily range): BP systolic 133–152; BP diastolic 75–82; PULSE 56–70; RESP 20; TEMP 36.3–36.9; O2SAT 96–99
[2021-09-25] MEDS: Normal Saline Flush 10 ML SYR IVP ×2 (08:13→10:16)
[2021-09-25 08:31] LABS: Absolute Basophil Count 0.02 10^3/uL (0.0-0.2); HCT 21.5 % (40.0-50.0); MCH 28.6 pg (27.0-33.0); MCHC 32.6 % (32.0-36.0); MCV 87.8 fL (80-95); RBC 2.45 10^6/uL (4.36-5.78); RDW 16.7 % (11.8-14.1); RDW-SD 52.5 fL
[2021-09-25 08:39] LABS: WBC 1.76 10^3/uL (4.4-10.8)
[2021-09-25 08:44] LABS: ALT 54 U/L (16-63); AST 22 U/L (15-37); Alkaline Phosphatase 100 U/L (46-116); Anion Gap 6.8 mmol/L (3-11); BUN 16 mg/dL (7-18); CO2 28.2 mmol/L (21.0-32.0); CREATININE 0.7 mg/dL (0.70-1.30); Calcium 8.7 mg/dL (8.5-10.1); Chloride 101 mmol/L (98-107); Glucose 168 mg/dL (74-106); Potassium 3.9 mmol/L (3.5-5.1); Sodium 136 mmol/L (136-145); Total Protein 7.3 g/dL (6.4-8.2)
[2021-09-25 08:47] LABS: Absolute Eosinophil Count 0.14 10^3/uL (0.0-0.7); Absolute Lymphocyte Count 0.39 10^3/uL (1.2-3.4); Absolute Monocyte Count 0.14 10^3/uL (0.1-0.8); Absolute Neutrophil Count 0.97 10^3/uL (1.2-6.7); Bands % 2
[2021-09-25 08:48] LABS: Diff Comment Manual Differential; Metamyelocytes % 4; Myelocytes % 2; Platelet Count 16 10^3/uL (130-400); RBC Morphology Normal
[2021-09-29] VITALS (8 sets, daily range): BP systolic 116–142; BP diastolic 68–77; PULSE 60–73; RESP 20; TEMP 36.6–36.7; O2SAT 95–97
[2021-09-29] MEDS: Normal Saline Flush 10 ML SYR IVP ×2 (08:46→11:54)
[2021-09-29 08:54] LABS: HGB 7.1 g/dL (13.5-17.5); MCH 28.3 pg (27.0-33.0); MCHC 32.3 % (32.0-36.0); MCV 87.6 fL (80-95); RBC 2.51 10^6/uL (4.36-5.78); RDW 16.1 % (11.8-14.1); RDW-SD 51.1 fL; WBC 2.02 10^3/uL (4.4-10.8)
[2021-09-29 09:06] LABS: Platelet Count 18 10^3/uL (130-400)
[2021-09-29 09:13] LABS: Absolute Eosinophil Count 0.04 10^3/uL (0.0-0.7); Absolute Lymphocyte Count 0.42 10^3/uL (1.2-3.4); Absolute Monocyte Count 0.18 10^3/uL (0.1-0.8); Absolute Neutrophil Count 1.35 10^3/uL (1.2-6.7); Atypical Lymphocytes % 1; Bands % 4; Diff Comment Manual Differential; Metamyelocytes % 1
[2021-09-29 09:15] LABS: RBC Morphology Normal
[2021-10-02 08:41] LABS: Abs Immature Grans 0.26 10^3/uL (0.0-0.06); HCT 22.3 % (40.0-50.0); HGB 7.3 g/dL (13.5-17.5); MCH 28.9 pg (27.0-33.0); MCHC 32.7 % (32.0-36.0); MCV 88.1 fL (80-95); RBC 2.53 10^6/uL (4.36-5.78); RDW 15.9 % (11.8-14.1); RDW-SD 50.3 fL
[2021-10-02] MEDS: Normal Saline Flush 10 ML SYR IVP ×2 (08:41→12:19)
[2021-10-02 09:15] LABS: Absolute Basophil Count 0.04 10^3/uL (0.0-0.2); Absolute Eosinophil Count 0.08 10^3/uL (0.0-0.7); Absolute Lymphocyte Count 0.53 10^3/uL (1.2-3.4); Absolute Monocyte Count 0.29 10^3/uL (0.1-0.8); Absolute Neutrophil Count 0.96 10^3/uL (1.2-6.7); Atypical Lymphocytes % 1; Bands % 2; Metamyelocytes % 3
[2021-10-02 09:16] LABS: Diff Comment Manual Differential; Hypochromasia 2+
[2021-10-02 09:18] LABS: Poikilocytes 1+
[2021-10-02 09:20] VITALS: BP 127/68; PULSE 77; RESP 20; TEMP 36.3; O2SAT 97
[2021-10-02 09:20] LABS: Platelet Count 23 10^3/uL (130-400); WBC 1.95 10^3/uL (4.4-10.8)
[2021-10-02 09:35] VITALS: BP 118/66; PULSE 71; RESP 20; TEMP 37; O2SAT 95
[2021-10-02 10:05] VITALS: BP 131/70; PULSE 67; RESP 20; TEMP 36.8; O2SAT 94
[2021-10-02 11:05] VITALS: BP 117/65; PULSE 68; RESP 20; TEMP 36.5; O2SAT 93
[2021-10-02 11:27] VITALS: BP 126/66; PULSE 69; RESP 20; TEMP 36.6; O2SAT 96
== END 2021-10-04 23:59 | disposition home or self-care (01) ==
LOC: INF 09:00
PROVIDERS: PCP Neuromusculoskeletal Medicine & OMM; Visit Provider Nurse Practitioner Family
DX: D46.Z Other myelodysplastic syndromes (principal)
CPT/HCPCS: 36430; 36591; 36592; 80053; 86850; 86900; 86901; 86920; 86945; 85014; 85018; 85025; P9016; P9035

== ENCOUNTER 2021-10-23 10:00 | Outpatient (RCR) | payer MEDICARE, MEDICAID, SELFPAY ==
[2021-10-05 00:14] VITALS: BP 126/66; PULSE 69; RESP 20; TEMP 36.6
--- OUTSIDE RECORDS SUMMARY | 2021-10-06 01:26 | XMS_ITS | Encounter Summary ---
:1940 Author Organization [facility] Address [address] [place] [address] Care Team Providers Name Role Phone Unknown, Provider Primary Care Provider Encounter Details Date Type Department Care Team Description 05/27/2010 Hospital Encounter [facility] - Unknown, Hoang Kwok MD [phone] Social History Tobacco Use Types Packs/Day Years Used Date Never Assessed Sex Assigned at Date Recorded Not on file documented as of this encounter Discharge Disposition Disposition Code Departure Means Destination Home or Self Nursing Home documented in this encounter Plan of Treatment Not on filedocumented as of this encounter Procedures Procedure Name Priority Date/Time Associated Diagnosis Comme nts XR KNEE 2V [id number] 05/27/2010 20:40 EST Res ults for this procedure are i n the results section. XR KNEE 2V [id number] 05/27/2010 20:39 EST Res ults for this procedure are i n the results section. documented in this encounter Results XR KNEE 2V [id number] (05/27/2010 20:40 EST) Anatomical Region Laterality Modality Other Specimen Narrative [facility] - 05/28/2010 14:07 EST Findings: Two views of the left knee obtained at 6 :00 p.m. 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 The entire tibial component is not imaged. Two screws are present in the proximal lateral tibia. S oft tissue air is present consistent with recent surgery. Tubing p rojects over the soft tissues of the femur. Two views of the left knee obtained at a pproximately 7:45 p.m. demonstrate the entire extent of the anthony g stem tibial prosthesis and a drain in the soft tissues. Skin staple s are present anteriorly. Procedure Note 05/28/2010 Findings: Two views of the left knee obtained at 6 :00 p.m. 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 The entire tibial component is not imaged. Two screws are present in the proximal lateral tibia. S oft tissue air is present consistent with recent surgery. Tubing p rojects over the soft tissues of the femur. Two views of the left knee obtained at a pproximately 7:45 p.m. demonstrate the entire extent of the anthony g stem tibial prosthesis and a drain in the soft tissues. Skin staple s are present anteriorly. Performing Organization Address City/[facility] Code Phon e Number [facility] XR KNEE 2V [id number] (05/27/2010 20:39 EST) Anatomical Region Laterality Modality Other Specimen Narrative [facility] - 05/28/2010 14:07 EST Findings: Two views of the left knee obtained at 6 :00 p.m. 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 The entire tibial component is not imaged. Two screws are present in the proximal lateral tibia. S oft tissue air is present consistent with recent surgery. Tubing p rojects over the soft tissues of the femur. Two views of the left knee obtained at a pproximately 7:45 p.m. demonstrate the entire extent of the anthony g stem tibial prosthesis and a drain in the soft tissues. Skin staple s are present anteriorly. Procedure Note 05/28/2010 Findings: Two views of the left knee obtained at 6 :00 p.m. 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 The entire tibial component is not imaged. Two screws are present in the proximal lateral tibia. S oft tissue air is present consistent with recent surgery. Tubing p rojects over the soft tissues of the femur. Two views of the left knee obtained at a pproximately 7:45 p.m. demonstrate the entire extent of the anthony g stem tibial prosthesis and a drain in the soft tissues. Skin staple s are present anteriorly. Performing Organization Address City/State/ZIP Code Phon e Number [facility] documented in this encounter Visit Diagnoses Not on filedocumented in this encounter Care Teams Car Shifter Relationship Specialty Start Date End Date Unknown, Provider, PCP - General 03/10/10 documented as of this encounter
--- OUTSIDE RECORDS SUMMARY | 2021-10-06 01:26 | XMS_ITS | Clinical Summary ---
:1940 Author Organization [facility] Address [address] [place] [address] Care Team Providers Name Role Phone Unknown, Provider Primary Care Provider Encounters Date Type Specialty Care Team Description 08/04/2021 Lab Requisition Clinical Laboratory Outr Resulting Lab , Provider from Last 3 Months Social History Tobacco Use Types Packs/Day Years Used Date Never Assessed Sex Assigned at Date Recorded Not on file Plan of Treatment Health Maintenance Due Date Last Done Comments Fall Risk Screening 10/08/2007 Procedures Procedure Name Priority Date/Time Associated Comments Diagnosis HIGH SENSITIVITY Routine 08/04/2021 16:36 Results for this C-REACTIVE PROTEIN EST procedure are in (CARDIOVASCULAR the results DISEASE) section. from Last 3 Months Results HIGH SENSITIVITY C-REACTIVE PROTEIN (CARDIOVASCULAR DISEASE) (08/04/2021 16:36 EST) High Sensitivity >15.00 See Note [facility] MEDICAL CRP Comment: mg/L [facility] Suggest ordering C-Reactive Protein Reference Range: ??Low Risk: ? <1.0 mg/L ??Average Risk: ?? 1.0 - 3.0 mg/L ??High Risk: ?>3.0 mg/L ??Indeterminate*: >10.0 mg/L ??*May be an indication of another source of inflamma tion or infection Specimen Blood - Venous blood (substance) Performing Organization Address City/State/ZIP Code Phon e Number [facility] [address] [place] [address] SERVICES from Last 3 Months Care Teams Area Representative Relationship Specialty Start Date End Date Unknown, Provider, PCP - General 03/10/10
--- OUTSIDE RECORDS SUMMARY | 2021-10-06 01:26 | XMS_ITS | Encounter Summary ---
:1940 Author Care Team Providers Name Role Phone Amarjit Galeana DO Primary Care Provider Unavailable Reason for Visit Left leg problem Assessment and Plan 1. Knee joint painful on movemen t Multiple surgeries on both kne es. Most recent his left knee. Infection incident. Seemingly worse since placed o n antibiotic for this infection. This is being addressed through her specialist. Pain medication as needed to help him manage those days when its quite painful. He st ates is really not the pain is the fact that the joint itself is seemingly to become very stiff. ? oxycodone 5 mg tablet 2. Myelodysplastic syndrome (cli nical) Followed by hematology oncolog y. They are also monitoring his anemia. Most recent platelet count 57,000. Most recen t hemoglobin is 7.4. This was last checked on August 12, 2021. Discussion Note: None recorded.Patient educational handouts: No information available. Plan of Care Reminders Provider Appointments None ? ? recorded. Lab None ? ? recorded. Referral None ? ? recorded. Procedures None ? ? recorded. Surgeries None ? ? recorded. Imaging None ? ? recorded. Medications Name Start Date ? ? acetaminophen 500 mg tablet ? Take 2 tablets every 8 hours by oral route. Aleve 220 mg capsule ? Take 1 capsule 4 times a day by oral route. aspirin 81 mg tablet ? Take 1 tablet every day by oral route. daptomycin ? 800 mg IV injection daily at 5pm in his port/Picc doxycycline hyclate 100 mg tablet 09/09/2021 Take 1 tablet twice a day by oral route. ferrous sulfate 325 mg (65 mg iron) tablet,delayed rel ease ? TAKE ONE TABLET BY MOUTH EVERY DAY WITH LUNCH Flovent HFA 110 mcg/actuation aerosol inhaler ? INHALE 2 PUFFS BY MOUTH TWO TIMES A DAY fluticasone propionate ? 110mcg furosemide 40 mg tablet ? TAKE ONE TABLET BY MOUTH EVERY DAY gabapentin 300 mg capsule ? Take 3 capsules 3 times a day by oral route. Incruse Ellipta 62.5 mcg/actuation powder for inhalati on ? INHALE ONE PUFF BY MOUTH EVERY DAY levothyroxine 175 mcg tablet ? TAKE ONE TABLET BY MOUTH EVERY DAY loperamide 2 mg capsule ? TAKE ONE CAPSULE BY MOUTH THREE TIMES A DAY NEEDED FOR 7 DAYS loratadine 10 mg tablet ? Take 1 tablet every day by oral route. metoprolol succinate ER 50 mg tablet,extended release 24 hr ? TAKE ONE TABLET BY MOUTH EVERY DAY Miralax 17 gram oral powder packet ? Take 2 packets every day by oral route. multivitamin ? 1 daily naproxen sodium 220 mg tablet ? Take 1 tablet every 12 hours by oral route. nitroglycerin 0.4 mg sublingual tablet ? PLACE ONE TABLET UNDER THE TONGUE EVERY 5 MINUTES FOR UP TO 3 DOSES NEEDED FOR CHEST PAIN. IF CHEST PAIN STILL PERSISTS CONTACT 911 omeprazole 40 mg capsule,delayed release ? TAKE ONE CAPSULE BY MOUTH EVERY DAY ondansetron 4 mg disintegrating tablet ? Place 1 tablet every 8 hours by translingual route. oxycodone 5 mg tablet ? Take 1 tablet 3 times a day by oral route as needed f or 28 days. penicillin V potassium 500 mg tablet 09/09/2021 Take 1 tablet twice a day by oral route. pravastatin 20 mg tablet ? TAKE ONE TABLET BY MOUTH EVERY DAY Rhinocort Allergy 32 mcg/actuation nasal spray ? Take 2 sprays by nasal route for 14 days. Senna with Docusate Sodium 8.6 mg-50 mg tablet ? Take 2 tablets twice a day by oral route. sertraline 50 mg tablet ? TAKE ONE TABLET BY MOUTH EVERY DAY Medications Administered None recorded. Vitals Height Weight BMI Blood Pressure 5 ft 6.5 in 247 lbs 39.3 kg/m2 120/80 mm[Hg] Results Lab Results None recorded. Allergies Code Code System Name Reaction Severity Onset Gadolinium-conta Hives Severe ? ining Contrast Media 9384 RxNorm Rifampin ? ? ? Problems Name Status Onset Date Source ? Long-term Current Use of Antibiotic Active 12/22/2019 ? Hypothyroidism Active ? History Type 2 Diabetes Mellitus without Active ? History Complication Hyperlipidemia Active ? History Obesity Active ? History Anemia Active ? History Depressive Disorder Active ? History Obstructive Sleep Apnea Syndrome Active ? History Benign Essential Hypertension Active ? Hi story Chronic Obstructive Lung Disease Active ? History Hyperplasia of Prostate Active ? History Degenerative Joint Disease Involving Active ? History Multiple Joints Cervical Disc Disorder Active ? History Cervico-occipital Neuralgia Active ? Hist ory Artificial Knee Joint Present Active ? 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 History Atherosclerosis of [place] Artery of Limb Atherosclerosis of Coronary Artery Active ? History without Angina Pectoris Procedures Date Name Performed by ? 07/29/2021 Total Knee Replacement Information not a vailable Notes: I&D and Left revision TKA modular component exchange for PJI Vaccine List Vaccine Type COVID-19, mRNA, LNP-S, PF, 30 mcg/0.3 mL dose (Rainbow) 08/27/2020 09/16/2020 influenza, seasonal, injectable, preserv ative free 04/05/2009?0.5 mL pneumococcal polysaccharide PPV23 01/10/2013?0.5 mL Tdap 11/13/2010?0.5 mL 07/09/2021?0.5 mL Social History Tobacco Smoking Status Never Smoker What is your code status? 0 How much tobacco do you chew? none What is your level of alcohol consumption? None Did the fall result in an injury? N Have you used IV drugs? N What was the date of your most recent tobacco screening? 01/2021 Do you have an advanced directive? N Have you fallen in the last 3 months? N Functional Status Unknown. Past Encounters 08/14/2021 Knee Joint Painful on Movement; Myelodys plastic Syndrome (Clinical) Amarjit Galeana, DO: [address] [place] [id number], Ph. History of Present Illness ? Lower Leg Pain Reported By: Patient HPI: Location: left. Timing: systems architect cheri. Aggravating Factors: walking, ROM, weight bearing. Previous De alise: surgical procedure: Review of Systems: ROS as noted in the HPI Review of Systems None recorded. Physical Exam ? Comprehensive PE (male) Reported By: Patient Constitutional: General Appearance: healthy- appearing, well-nourished, well-developed. Level of Dis tress: no apparent distress. Ambulation: ambulating mike lly Respiratory: Respiratory effort: unlabore d respirations, no use of accessory muscles. RUL Auscultation: b reath sounds normal, good air movement, clear to auscultation except as noted, no wheezing, no rales/crackles, no rhonchi. RLL Auscultation: breath sounds normal, good air movement, clear to auscultation except as noted, no wheezing, no rales/crackles, no rhonchi. JAMIR Auscultation: breath sounds normal, good air move ment, clear to auscultation except as noted, no wheezing, no rales /crackles, no rhonchi. LLL Auscultation: breath sounds normal, good air movement, clear to auscultation except as noted , no wheezing, no rales/crackles, no rhonchi Cardiovascular: Apical Impulse: not displace d. Heart Auscultation: regular rate and rhythm (RRR), normal S1, nor mal S2, no murmurs, no rubs, no gallops. Neck vessels: no ca rotid bruits. Pulses including femoral / pedal: normal throughout Musculoskeletal:: Gait and Station: irregular gait. Joints, Bones, and Muscles: limited range of motion; Lef t lower extremity with a considerable amount of edema which is nor mal for the patient. Limited range of motion of the left knee part icular. No additional warmth to touch, no cellulitis noted. No guadalupe thema. Extremities: edema; 2+ pitting edema of the lower extremiti es bilaterally Neurologic: Orientation: oriented to per son, place, time and situation. Memory: recent memory normal, remote memory normal Psychiatric: Insight: good insight, good judgment. Mental Status: normal mood, normal affect
--- OUTSIDE RECORDS SUMMARY | 2021-10-06 01:26 | XMS_ITS | Encounter Summary ---
:1940 Author Organization [facility] Address [address] [place] [address] Care Team Providers Name Role Phone Unknown, Provider Primary Care Provider Encounter Details Date Type Department Care Team Description 02/03/2021 Lab Requisition [facility] Outr Resulting Lab, Pathology & Laboratory Provider [facility] [address] [place] [address] Social History Tobacco Use Types Packs/Day Years Used Date Never Assessed Sex Assigned at Date Recorded Not on file documented as of this encounter Plan of Treatment Not on filedocumented as of this encounter Procedures Procedure Name Priority Date/Time Associated Diagnosis Comme nts C REACTIVE PROTEIN Routine 02/03/2021 11:30 Resul ts for this EDT procedure are i n the results section. documented in this encounter Results (ABNORMAL) C REACTIVE PROTEIN (02/03/2021 11:30 EDT) Pathologist Sig nature C-Reactive Protein 78.3 (H) <10.0 mg/L [facility] Specimen Blood - Venous blood (substance) Performing Organization Address City/State/ZIP Code Phon e Number [facility] [address] [place] [address] SERVICES documented in this encounter Visit Diagnoses Not on filedocumented in this encounter Care Teams Data Technical Lead Relationship Specialty Start Date End Date Unknown, Provider, PCP - General 03/10/10 documented as of this encounter
--- OUTSIDE RECORDS SUMMARY | 2021-10-06 01:26 | XMS_ITS | Encounter Summary ---
:1940 Author Organization [facility] Address [address] [place] [address] Care Team Providers Name Role Phone Unknown, Provider Primary Care Provider Encounter Details Date Type Department Care Team Description 12/12/2020 Lab Requisition [facility] Outr Resulting Lab, Pathology & Laboratory Provider [facility] [address] [place] [address] Social History Tobacco Use Types Packs/Day Years Used Date Never Assessed Sex Assigned at Date Recorded Not on file documented as of this encounter Plan of Treatment Not on filedocumented as of this encounter Procedures Procedure Name Priority Date/Time Associated Diagnosis Comme nts ANCA, IFA Routine 12/12/2020 9:30 Results for this EDT procedure are i n the results section. ANTI NUCLEAR AB Routine 12/12/2020 9:30 Results for this (KO), IFA EDT procedure are i n the results section. T3 FREE Routine 12/12/2020 9:30 Results for this EDT procedure are i n the results section. documented in this encounter Results ANTI NUCLEAR AB (KO), IFA (12/12/2020 9:30 EDT) KO Interpretation NegativeComment: Negative [facility] No titer LABORATORY SERVICES performed, KO Screen is negative. Specimen Blood - Venous blood (substance) Narrative [facility] - 12/13/2020 16:17 EDT Results were obtained with the [employer] NOV A Lite HEp-2 KO Kit by indirect immunofluorescence. Performing Organization Address City/State/ZIP Code Phon e Number [facility] [address] [place] [address] SERVICES T3 FREE (12/12/2020 9:30 EDT) Pathologist Sig nature T3, Free 3.9 2.8 - 5.3 pg/mL [facility] LABORA TORY SERVICES Specimen Blood - Venous blood (substance) Performing Organization Address City/[facility]/ZIP Code Phon e Number [facility] [address] [place] [address] SERVICES ANCA, IFA (12/12/2020 9:30 EDT) Lab ANCA Negative Negative [facility] Interpretation Comment: LABORATORY No titer performed, ANCA Screen is negative. SERVICES Results were obtained with [employer] NOVA Lite ANCA kit by indirect immunofluorescence. Specimen Blood - Venous blood (substance) Performing Organization Address City/[facility]/ZIP Code Phon e Number [facility] [address] [place] [address] SERVICES documented in this encounter Visit Diagnoses Not on filedocumented in this encounter Care Teams Test Tech Relationship Specialty Start Date End Date Unknown, Provider, PCP - General 03/10/10 documented as of this encounter
--- OUTSIDE RECORDS SUMMARY | 2021-10-06 01:26 | XMS_ITS | Encounter Summary ---
:1940 Author Organization [facility] Address [address] [place] [address] Care Team Providers Name Role Phone Unknown, Provider Primary Care Provider Encounter Details Date Type Department Care Team Description 03/10/2010 Hospital Encounter [facility] - Unknown, Hoang Kwok MD [phone] Social History Tobacco Use Types Packs/Day Years Used Date Never Assessed Sex Assigned at Date Recorded Not on file documented as of this encounter Discharge Disposition Disposition Code Departure Means Destination Home or Self [facility] documented in this encounter Plan of Treatment Not on filedocumented as of this encounter Procedures Procedure Name Priority Date/Time Associated Diagnosis Comme nts XR KNEE 3V 68021 03/10/2010 13:07 EDT Res ults for this procedure are i n the results section. documented in this encounter Results XR KNEE 3V [id number] (03/10/2010 13:07 EDT) Anatomical Region Laterality Modality Other Specimen Narrative [facility] - 03/12/2010 11:02 EDT XR KNEE 3V [id number] ??Mar 10, 2010 01:07:00 PM Clinical History/Comments: POST OP EVAL Comparison: None. Findings: 3 views of the left knee were performed. 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 The patellar componen t appears high riding. There is anterior soft tissue swelling and a s mall to moderate joint effusion. There is medial tilting of the tibial component. Clinical correlation is recommended. If outside f ilms are available, these should be obtained for the purposes of c omparison. Loosening is not excluded. Procedure Note 03/12/2010 XR KNEE 3V [id number] Mar 10, 2010 01:07:00 PM Clinical History/Comments: POST OP EVAL Comparison: None. Findings: 3 views of the left knee were performed. 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 The patellar componen t appears high riding. There is anterior soft tissue swelling and a s mall to moderate joint effusion. There is medial tilting of the tibial component. Clinical correlation is recommended. If outside f ilms are available, these should be obtained for the purposes of c omparison. Loosening is not excluded. 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
--- OUTSIDE RECORDS SUMMARY | 2021-10-06 01:26 | XMS_ITS ---
:1940 Author Care Team Providers Name Role Phone KENZIE SIMON, DO Primary Care Provider Unavailable Allergies Code Code System Name Reaction Severity Status Onset Gadolinium-con Hives Severe Active ? taining Contrast Media 9384 RxNorm Rifampin ? ? Active ? Medications Name Status Start Date Stop Date ? ? acetaminophen 500 mg tablet Active ? Not available Take 2 tablets every 8 hours by oral route. Aleve 220 mg capsule Active ? Not availab le Take 1 capsule 4 times a day by oral route. amoxicillin 500 mg capsule Completed 06/23/201307/03 1 Capsule: tid - three times a day aspirin 325 mg tablet,delayed release Completed 01/27/2012 06/23/[address]: daily aspirin 81 mg tablet Active ? Not availab le Take 1 tablet every day by oral route. Asprin Ec Low Dose Completed ? 03/24/2019 325 mg daily bisacodyl 10 mg rectal suppository Completed 10/24/2015 10/06/2016 1 (one) Suppository: 1 suppository daily as needed Celebrex 200 mg capsule Completed 08/22/2007 08/22/19 08 1 Capsule: Daily ciprofloxacin 500 mg tablet Completed ? 01/2021 TAKE ONE TABLET BY MOUTH TWICE A DAY clindamycin HCl 300 mg capsule Completed ? 0 01/24/2021 Take 4 capsules every day by oral route for 30 days. clopidogrel 75 mg tablet Completed ? 022 TAKE ONE TABLET BY MOUTH EVERY DAY Coumadin 1 mg tablet Completed 01/18/2012 02/15/2012 as directed Tablet: daily cyclobenzaprine 10 mg tablet Completed 07/03/201311/2013 1 Tablet: every 8 hrs as needed daptomycin Active ? Not available 800 mg IV injection daily at 5pm in his port/Picc daptomycin 350 mg intravenous Completed ? solution daptomycin 500 mg intravenous solution Completed ? 03/18/2021 Inject 700 mg every day by intravenous route. diazepam 5 mg tablet Completed 10/28/2015 10/06/2016 1 (one) Tablet: every six hours, as needed doxycycline hyclate Completed ? 08/14/2021 100 mg one tab twice daily. doxycycline hyclate 100 mg tablet Active 09/09/2021 Not available Take 1 tablet twice a day by oral route. doxycycline monohydrate 100 mg Completed ? 0 02/07/2019 capsule enoxaparin 100 mg/mL subcutaneous syringe Completed ? 12/12/2020 twice daily for three months enoxaparin 40 mg/0.4 mL subcutaneous syringe Completed ? 03/18/2021 Inject 0.4 mL every day by subcutaneous route for 26 days. ferrous sulfate 325 mg (65 mg iron) tablet,delayed release Activ e ? Not available TAKE ONE TABLET BY MOUTH EVERY DAY WITH LUNCH Flovent Diskus 250 mcg/actuation powder for inhalation Completed 10/10/2010 10/14/2010 1 Puff(s): bid - twice daily Flovent HFA 110 mcg/actuation aerosol inhaler Active ? Not available INHALE 2 PUFFS BY MOUTH TWO TIMES A DAY fluticasone propionate Active ? Not avail able 110mcg furosemide 40 mg tablet Active ? Not avai lable TAKE ONE TABLET BY MOUTH EVERY DAY gabapentin 300 mg capsule Active ? Not av ailable Take 3 capsules 3 times a day by oral route. hydrocodone 5 mg-acetaminophen 325 mg tablet Completed 10/16/2013 1 (one) Tablet Tablet: two times daily, as needed hydromorphone 2 mg tablet Completed 10/28/20152015 1 (one) Tablet: See comments hydroxyzine HCl 25 mg tablet Completed 08/11/200706/2007 1 Tablet: Every 4 to 6 hours as needed Incruse Ellipta 62.5 mcg/actuation powder for inhalation Active ? Not available INHALE ONE PUFF BY MOUTH EVERY DAY Keflex 500 mg capsule Completed 01/03/2013 01/13/2013 1 Capsule: tid - three times a day Lactobacillus Completed ? 03/18/2021 with pectin 100 mg daily Lasix 80 mg tablet Completed 06/21/2014 07/25/2014 1 (one) Tablet: daily levothyroxine 125 mcg tablet Completed ? TAKE ONE TABLET BY MOUTH EVERY DAY levothyroxine 150 mcg tablet Completed ? 10/2018 levothyroxine 175 mcg tablet Active ? Not available TAKE ONE TABLET BY MOUTH EVERY DAY levothyroxine 200 mcg tablet Completed ? TAKE ONE TABLET BY MOUTH EVERY DAY lisinopril 2.5 mg tablet Completed 03/13/2010 013 1 Tablet: daily loperamide 2 mg capsule Active ? Not avai lable TAKE ONE CAPSULE BY MOUTH THREE TIMES A DAY NEEDED FOR 7 DAY S loratadine 10 mg tablet Active ? Not avai lable Take 1 tablet every day by oral route. metformin ER 750 mg tablet,extended release 24 hr Completed 02/13/2014 02/13/2014 1 (one) Tablet ER 24HR: two times dialy metoprolol succinate ER 50 mg tablet,extended release 24 hr Acti ve ? Not available TAKE ONE TABLET BY MOUTH EVERY DAY Miralax 17 gram oral powder packet Active ? Not available Take 2 packets every day by oral route. multivitamin Active ? Not available 1 daily naltrexone Completed ? 03/22/2019 1.5 mg capsule three times per day. naproxen sodium 220 mg tablet Active ? No t available Take 1 tablet every 12 hours by oral route. nitroglycerin 0.4 mg sublingual tablet Active ? Not available PLACE ONE TABLET UNDER THE TONGUE EVERY 5 MINUTES FOR UP TO 3 DOSES NEEDED FOR CHEST PAIN. IF CHEST PAIN STILL PERSISTS CONTACT 911 nystatin 100,000 unit/mL oral suspension Completed 014 08/03/2013 1 (one) Teaspoon: four times daily omeprazole 40 mg capsule,delayed release Active ? Not available TAKE ONE CAPSULE BY MOUTH EVERY DAY ondansetron 4 mg disintegrating tablet Active ? Not available Place 1 tablet every 8 hours by translingual route. oxycodone 5 mg tablet Active ? Not availa ble Take 1 tablet 3 times a day by oral route as needed for 28 days . oxycodone-acetaminophen 7.5 Completed ? 03/07 mg-325 mg tablet penicillin V potassium 500 mg tablet Active 09/09/2021 Not available Take 1 tablet twice a day by oral route. Percocet 5 mg-325 mg tablet Completed 07/03/201306/09 1 (one) Tablet: every 6 hrs as needed potassium chloride ER 10 mEq tablet,extended release(part/cr yst) Completed 04/12/2012 03/06/2013 1 Tablet ER: BID pravastatin 20 mg tablet Active ? Not mikey ilable TAKE ONE TABLET BY MOUTH EVERY DAY prednisone 5 mg tablet Completed 12/20/2013 4 1 Tablet: daily prednisone 50 mg tablet Completed 04/23/2015 04/30/20 15 1 (one) Tablet: daily Prilosec 20 mg capsule,delayed release Completed 3 02/13/[address]: bid - twice daily Protonix 40 mg tablet,delayed release Completed 08/22/2007 08/22/2007 1 (one) Tab DR: QD ranitidine 150 mg tablet Completed 12/25/2011 012 1 Tablet: bid - twice daily Rhinocort Allergy 32 mcg/actuation nasal spray Active ? Not available Take 2 sprays by nasal route for 14 days. rifampin 300 mg capsule Active ? Not avai lable rivaroxaban 10 mg tablet Completed ? 021 Take 1 tablet every day by oral route. Robaxin-750 750 mg tablet Completed 07/08/200502/10 1 (one) Tablet: BID for 1 week Senna with Docusate Sodium 8.6 mg-50 mg tablet Active ? Not available Take 2 tablets twice a day by oral route. sertraline 50 mg tablet Active ? Not avai lable TAKE ONE TABLET BY MOUTH EVERY DAY simvastatin 40 mg tablet Completed 01/04/2012 012 1 Tablet: daily Spiriva with HandiHaler 18 mcg and inhalation capsules Completed 03/12/2014 03/13/2014 1 (one) breath: daily spironolactone 50 mg tablet Completed ? 06/2021 TAKE ONE TABLET BY MOUTH EVERY DAY triamcinolone acetonide 0.1 % lotion Completed 08/11/2007 08/21/2007 topical Lotion: Twice daily as needed Tudorza Pressair 400 mcg/actuation breath activated Completed 07/30/2015 07/30/2015 1 (one) Inhalation: bid - twice daily Tums 200 mg calcium (500 mg) chewable tablet Completed 07/25/2014 2 (two) Tablet Chewable: bid - twice daily with meals as neede d Ultram 50 mg tablet Completed 01/23/2014 07/25/2014 2 (two) Tablet: in am then 1 tab q4hrs with 2 QHS (8 per day) valacyclovir 1 gram tablet Completed 07/06/201307/13 1 Tablet: tid - three times a day warfarin 5 mg tablet Completed ? 04/11/2019 Xopenex HFA 45 mcg/actuation aerosol inhaler Completed 11/201001/03/2013 2 (two) Puff(s): qid and prn Zaroxolyn 2.5 mg tablet Completed 04/23/2014 04/23/20 14 1 (one) Tablet: daily Problems Name Status Onset Date Source ? Long-term Current Use of Antibiotic Active 12/22/2019 ? Candidiasis of Mouth Unknown ? History Hypothyroidism Active ? History Type 2 Diabetes Mellitus without Active ? History Complication Hyperlipidemia Active ? History Obesity Active ? History Anemia Active ? History Depressive Disorder Active ? History Obstructive Sleep Apnea Syndrome Active ? History Benign Essential Hypertension Active ? Hi story Heart Failure Unknown ? History Lymphedema Praecox Unknown ? History Sinusitis Unknown ? History Chronic Obstructive Lung Disease Active ? History Hyperplasia of Prostate Active ? History Degenerative Joint Disease Involving Active ? History Multiple Joints Cervical Disc Disorder Active ? History Neck Pain Unknown ? History Cervico-occipital Neuralgia Active ? Hist ory Low Back Pain Unknown ? History Pain in Limb Unknown ? History Irregular Sleep-wake Pattern Unknown ? His tory Lack of Energy Unknown ? History Headache Unknown ? History Dyspnea Unknown ? History Chest Pain Unknown ? History Impaired Glucose Tolerance Unknown ? Histo ry Artificial Knee Joint Present Active ? Hi story Counseling Unknown ? History Screening for Cardiovascular System Unknown ? 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 History Atherosclerosis of [place] Artery of Limb Clinical Finding Unknown ? History Atherosclerosis of Coronary Artery Active ? History without Angina Pectoris Drug Therapy Unknown ? History Procedure by Method Unknown ? History Finding of Esophagus Unknown ? History Screening Procedure Unknown ? History Pain in Right Knee Unknown ? History Procedures Date Name Performed by ? 07/29/2021 Total Knee Replacement Information not a vailable 02/07/2019 XR, Ankle, 3 or More View [facility] Radiology (Internal) [address] [place] [place] [id number] (Work Place) 02/07/2019 XR, Tibia + Fibula, 2 View [facility] Radiology (Internal) [address] [place] [id number] (Work Place) 03/19/2021 US, Duplex, Venous, Lower Extremity, [facility] Radiology (Internal) Unilateral [address] [id number] (Work Place) Notes: I&D and Left revision TKA modular component exchange for PJI Results Lab Results Date Name Specimen Result Interpretation Description Value Range Status Address ? 03/18/2021 CBC W/ BLD Low Wbc 4.5 10*3/uL 5.0-10.0 Final [place] Auto Diff 10*3/uL [facility] Hospital L ab (Internal) : [address] t ? ? BLD Low Rbc 3.46 4.60-6.00 Final [place] 10*6/uL 10*6/uL [facility] Hospital L ab (Internal) : [address] t ? ? BLD Low Hgb 9.3 g/dL 14.0-18.0 Final [place] g/dL [facility] L ab (Internal) : [address] t ? ? BLD Low Hct 29.7 % 41.0-51.0 Final [facility] L ab (Internal) : [address] t ? ? BLD ? Mcv 85.8 fL 80.0-96.0 Final [facility] L ab (Internal) : [address] t ? ? BLD ? Mch 26.9 pg 26.0-32.0 Final [facility] L ab (Internal) : [address] t ? ? BLD ? Mchc 31.3 g/dL 31.0-35.0 Final Nort h g/dL [facility] L ab (Internal) : [address] t ? ? BLD High Rdw 19.0 % 11.5-14.5 Final [facility] L ab (Internal) : [address] t ? ? BLD ? Plt 247 10*3/uL 130-450 Final Nort h 10*3/uL [facility] L ab (Internal) : [address] t ? ? BLD ? Anc 2.58 ? Final [place] 10*3/uL [facility] L ab (Internal) : [address] t ? ? BLD ? Nlr 2.11 0.00-3.20 Final [facility] ab (Internal) : [address] t ? ? BLD ? Neutro 58.0 % 40.0-75.0 Final [facility] L ab (Internal) : [address] [place] ? ? BLD ? Lymph 27.4 % 20.0-50.0 Final [facility] Hospital L ab (Internal) : [address] [place] ? ? BLD High [place] 11.9 % 2.0-10.0 Final [facility] Hospital L ab (Internal) : [address] [place] ? ? BLD Low Eos 0.7 % 1.0-6.0 % Final [facility] L ab (Internal) : [address] [place] ? ? BLD ? Baso 0.7 % 0.0-1.0 % Final [facility] Hospital L ab (Internal) : [address] [place] ? ? BLD High Ig 1.3 % 0.0-0.9 % Final [facility] L ab (Internal) : [address] 03/18/2021 D-dimer, PLASMA High Dimq 2.17 mg/L 0.00-0.50 Final [place] Quant, mg/L [facility] Plasma Hospital L ab (Internal) : [address] 03/18/2021 RBC BLD ? [place] small ? Final [place] Morpholog Country y, Blood Hospital Lab (Internal) : [address] ? ? BLD ? Poik occasional ? Final [place] [hpf] [facility] Hospital L ab (Internal) : [address] 03/18/2021 Venipunct ? Locatio Right ? ? P _nc Primary ure n Antecubital Care [place] [address], [place] ? ? ? Needle 21g ? ? P_nc Prim adamaris Vacutainer Care [place]: [address], [place] ? ? ? Number 1 ? ? P_nc Prim adamaris of Care Attempts [place]: [address], [place] ? ? ? Success Yes ? ? P_nc Cathy lali ful Care [place]: [address], [place] ? ? ? Dressin Pressure ? ? P_nc P rimary g Band-aid Care Applied [place]: [address], [place] ? ? ? Initial hj ? ? P_nc Cathy lali s Care [place]: [address], [place] 01/08/2021 CBC W/ BLD High Wbc 12.7 5.0-10.0 Final Nort h Auto Diff 10*3/uL 10*3/uL [facility] Hospital L ab (Internal) : [address] t ? ? BLD Low Rbc 3.52 4.60-6.00 Final [place] 10*6/uL 10*6/uL [facility] Hospital L ab (Internal) : [address] t ? ? BLD Low Hgb 9.6 g/dL 14.0-18.0 Final [place] g/dL [facility] Hospital L ab (Internal) : [address] t ? ? BLD Low Hct 31.0 % 41.0-51.0 Final [facility] L ab (Internal) : [address] t ? ? BLD ? Mcv 88.1 fL 80.0-96.0 Final [facility] L ab (Internal) : [address] t ? ? BLD ? Mch 27.3 pg 26.0-32.0 Final [facility] L ab (Internal) : [address] t ? ? BLD ? Mchc 31.0 g/dL 31.0-35.0 Final Nort h g/dL [facility] Hospital L ab (Internal) : [address] t ? ? BLD High Rdw 18.5 % 11.5-14.5 Final [facility] L ab (Internal) : [address] t ? ? BLD ? Plt 255 10*3/uL 130-450 Final Nort h 10*3/uL [facility] Hospital L ab (Internal) : [address] 01/08/2021 Lactic S ? La 1.4 mmol/L 0.7-2.1 Final N orth Acid, mmol/L [facility] Blood Hospital L ab (Internal) : [address] 01/08/2021 Urinalysi UR ? UA-colo pale yellow pale Fin al North s, r yellow Country Dipstick, Hospita l Lab Reflex (Internal) : Micro [address] t ? ? UR ? UA-appe clear clear Final [place] ar [facility] Hospital L ab (Internal) : [address] ? ? UR ? UA-spec 1.015 1.003-1.0 Final [place] Grav 35 [facility] Hospital L ab (Internal) : [address] t ? ? UR ? UA-pH 5.5 [pH] 4.6-8.0 Final [place] [pH] [facility] L ab (Internal) : [address], [place] ? ? UR ? UA-leuk negative negative Final Nort h Est [facility] L ab (Internal) : [address] ? ? UR ? UA-nitr negative negative Final Nort h ite [facility] L ab (Internal) : [address] ? ? UR ? UA-prot negative negative Final Nort h [facility] L ab (Internal) : [address] t ? ? UR ? UA-gluc negative negative Final Nort h [facility] L ab (Internal) : [address] t ? ? UR ? UA-keto negative negative Final Nort h ne [facility] L ab (Internal) : [address] t ? ? UR ? UA-urob normal normal Final [facility] L ab (Internal) : [address] t ? ? UR ? UA-bili negative negative Final Nort h [facility] L ab (Internal) : [address] t ? ? UR ? UA-bloo negative negative Final Nort h d [facility] L ab (Internal) : [address] t 01/08/2021 CMP, S High g/r 113 mg/dL 74-106 Final Nor th Serum or mg/dL [facility] Plasma Hospital L ab (Internal) : [address] t ? ? S ? Bun 20 mg/dL 9-20 Final [place] mg/dL [facility] Hospital L ab (Internal) : [address] t ? ? S ? Crea 0.70 mg/dL 0.66-1.25 Final Nor th mg/dL [facility] Hospital L ab (Internal) : [address] t ? ? S ? Ca 9.5 mg/dL 8.4-10.2 Final [place] mg/dL [facility] L [facility] (Internal) : [address] t ? ? S ? Na 138 mmol/L 137-145 Final [place] mmol/L [facility] L [facility] (Internal) : [address] t ? ? S ? K 5.0 mmol/L 3.5-5.1 Final [place] mmol/L [facility] Hospital L ab (Internal) : [address] t ? ? S ? Cl 99 mmol/L 98-107 Final [place] mmol/L [facility] Hospital L ab (Internal) : [address] t ? ? S ? Tco2 28.0 mmol/L 22.0-30.0 Final No rth mmol/L [facility] L ab (Internal) : [address] t ? ? S High Tp 8.5 g/dL 6.3-8.2 Final [place] g/dL [facility] L [facility] (Internal) : [address] t ? ? S ? Alb 4.2 g/dL 3.5-5.0 Final [place] g/dL [facility] Hospital L ab (Internal) : [address] t ? ? S ? Tbil 0.3 mg/dL 0.2-1.3 Final [place] mg/dL [facility] Hospital L ab (Internal) : [address] t ? ? S ? Alp 104 U/L 38-126 Final [place] U/L [facility] Hospital L ab (Internal) : [address] t ? ? S Low Alt 20 U/L 21-72 U/L Final [place] (Sgpt) [facility] Hospital L ab (Internal) : [address] t ? ? S ? Ast 43 U/L 17-59 U/L Final [place] (Sgot) [facility] Hospital L ab (Internal) : [address] 01/08/2021 Culture, BLD ? Final microbiolog ? Final [place] Blood 1 y results Countr y Hospital L ab (Internal) : [address] 01/08/2021 Culture, BLD ? Final microbiolog ? Final [place] Blood 2 y results Countr y Hospital L ab (Internal) : [address] 01/08/2021 Different BLD High Polys 91 % 40-75 % Final No rth ial, Country Manual, Hospital Lab Blood (Internal) : [address] t ? ? BLD ? Bands 0 % 0-5 % Final [facility] Hospital L ab (Internal) : [address] ? ? BLD Low Lymphs 3 % 20-50 % Final [facility] Hospital L ab (Internal) : [address] t ? ? BLD ? [place] 6 % 2-10 % Final [facility] Hospital L ab (Internal) : [address] t ? ? BLD ? Eos 0 % 0-6 % Final [facility] L ab (Internal) : [address] t ? ? BLD ? Baso 0 % 0-1 % Final [facility] L ab (Internal) : [address] t ? ? BLD ? Atyp 0 % ? Final [place] [facility] (Internal) : [address] t ? ? BLD ? Plts, adequate adequate Final [facility] Hospital L ab (Internal) : [address] t ? ? BLD ABNORMAL RBC abnormal normal Final [facility] Hospital L ab (Internal) : [address] t ? ? BLD ? [place] occasional ? Final [facility] ab (Internal) : [address] t 01/08/2021 Neutrophi BLD ? Anc-man 11.54 ? Final N orth l Count, ual 10*3/uL [facility] Lab (Anc), (Internal) : Blood [address] t 01/08/2021 Nlr-manua BLD High Nlr - 30.33 0.00-3.20 Final [facility] Hospital L ab (Internal) : [address] t 01/08/2021 CRP, High S High Rcrp 15.44 mg/dL 0.10-0.30 Fi nal North Sensitivi mg/dL Country ty, Serum Hospita l Lab or Plasma (Rental Sales Representative al): [address] t 01/08/2021 ESR BLD High Esr 88 mm/h 0-20 mm/h Final No rth ([facility] e Hospital L ab Sedimenta (Rental Sales Representative al): tion [address], [place] Blood 01/08/2021 Respirato FLUID ? Final microbiolog ? Final [place] ry Virus y results Count ry [facility] Hospital L ab (Internal) : [address] 12/19/2020 Fecal ? No ? ? ? P_nc P rimary Occult observat Care Blood X ion [place], Stool recorded ns: [address], [place] 12/12/2020 CBC W/ BLD ? Wbc 5.6 10*3/uL 5.0-10.0 Final [place] Auto Diff 10*3/uL [facility] Hospital L ab (Internal) : [address] ? ? BLD Low Rbc 3.61 4.60-6.00 Final [place] 10*6/uL 10*6/uL [facility] Hospital L ab (Internal) : [address] ? ? BLD Low Hgb 9.8 g/dL 14.0-18.0 Final [place] g/dL [facility] L ab (Internal) : [address] ? ? BLD Low Hct 33.0 % 41.0-51.0 Final [facility] L ab (Internal) : [address] ? ? BLD ? Mcv 91.4 fL 80.0-96.0 Final [facility] L ab (Internal) : [address] ? ? BLD ? Mch 27.1 pg 26.0-32.0 Final [facility] L ab (Internal) : [address] ? ? BLD Low Mchc 29.7 g/dL 31.0-35.0 Final Nort h g/dL [facility] Hospital L ab (Internal) : [address] ? ? BLD High Rdw 18.6 % 11.5-14.5 Final [facility] L ab (Internal) : [address] ? ? BLD ? Plt 280 10*3/uL 130-450 Final Nort h 10*3/uL [facility] Hospital L ab (Internal) : [address] ? ? BLD ? Anc 3.76 ? Final [place] 10*3/uL [facility] Hospital L ab (Internal) : [address] ? ? BLD High Nlr 3.96 0.00-3.20 Final [facility] Hospital L ab (Internal) : [address] ? ? BLD ? Neutro 67.1 % 40.0-75.0 Final [facility] L ab (Internal) : [address] ? ? BLD Low Lymph 17.0 % 20.0-50.0 Final [facility] Hospital L ab (Internal) : [address] ? ? BLD ? [place] 8.0 % 2.0-10.0 Final [facility] L ab (Internal) : [address] ? ? BLD High Eos 6.1 % 1.0-6.0 % Final [facility] L ab (Internal) : [address] ? ? BLD ? Baso 0.9 % 0.0-1.0 % Final [facility] L ab (Internal) : [address] ? ? BLD ? Ig 0.9 % 0.0-0.9 % Final [facility] L ab (Internal) : [address] t 12/12/2020 Iron, SERUM ? Iron 53 ug/dL 49-181 Final Nort h Serum ug/dL [facility] Hospital L ab (Internal) : [address] t 12/12/2020 Thyroid S Low Tsh 0.24 0.47-4.68 Final No rth Amery, u[IU]/mL u[IU]/mL Coun [facility] Serum Hospital L ab (Internal) : [address] t 12/12/2020 ESR BLD High Esr 83 mm/h 0-20 mm/h Final No rth ([facility] Hospital L ab Sedimenta (Rental Sales Representative al): tion [address], [place] Blood 12/12/2020 Vitamin S High Vit B12 >1000.0 239.0-931 Final [place] B12, pg/mL .0 pg/mL [facility] Serum Hospital L ab (Internal) : [address] t 12/12/2020 Ferritin, S ? Ferr 65 NG/mL 18-464 Final N orth Serum or NG/mL [facility] L ab (Internal) : [address] [facility] 12/12/2020 RBC BLD ? [place] small ? Final [place] Morpholog Country y, Blood Hospital Lab (Internal) : [address] ? ? BLD ? Polychr occasional ? Final Nort h om [facility] L ab (Internal) : [address] [facility] 12/12/2020 Folate, S ? Folate >17.00 2.76-20.0 Final N orth Serum NG/mL 0 NG/mL [facility] L ab (Internal) : [address] [facility] 12/12/2020 Rf BLD ? Rf negative < negative Final [place] (Rheumato 10 [IU]/mL < 10 Cou ntry id [IU]/mL Hospital Lab Factor), (Interna l): Serum [address] [facility] 12/12/2020 T4, Free, S ? Ft4 1.53 NG/dL 0.78-2.19 Fin [facility] [place] Serum NG/dL [facility] L ab (Internal) : [address] [facility] 12/12/2020 Anca, S ? Anca negative negative Final No rth Serum Interpre [facility] L ab (Internal) : [address] [facility] 12/12/2020 T3, Free, S ? T3, 3.9 pg/mL 2.8-5.3 Final [place] Serum or Free pg/mL [facility] L ab (Internal) : [address] [facility] Cyclic S ? Cyclic <15.6 U <20.0 Final Nort h Citrullin Citrulli (negative Co untry ated nated ) U Hospital L ab Peptide Peptide (Interna l): Ab, Quant Ab, S [address] [facility] ay, Serum 12/12/2020 KO S ? KO negative negative Final No rth (Antinucl Interpre Count ry [facility] L ab Antibodie (Rental Sales Representative al): s) [address], [place] Serum 10/28/2020 CBC W/ BLD ? Wbc 8.3 10*3/uL 5.0-10.0 Final [place] Auto Diff 10*3/uL [facility] L [facility] (Internal[facility] : [address] ? ? BLD Low Rbc 2.94 4.60-6.00 Final [place] 10*6/uL 10*6/uL [facility] Hospital L ab (Internal) : [address] ? ? BLD Low Hgb 8.0 g/dL 14.0-18.0 Final [place] g/dL [facility] Hospital L ab (Internal) : [address] ? ? BLD Low Hct 26.6 % 41.0-51.0 Final [facility] Hospital L ab (Internal) : [address] ? ? BLD ? Mcv 90.5 fL 80.0-96.0 Final [facility] Hospital L ab (Internal) : [address] ? ? BLD ? Mch 27.2 pg 26.0-32.0 Final [facility] Hospital L ab (Internal) : [address] ? ? BLD Low Mchc 30.1 g/dL 31.0-35.0 Final [place] g/dL [facility] Hospital L ab (Internal) : [address] ? ? BLD High Rdw 16.8 % 11.5-14.5 Final [facility] L ab (Internal) : [address] ? ? BLD ? Plt 438 10*3/uL 130-450 Final Nort [place] 10*3/uL [facility] Hospital L ab (Internal) : [address] ? ? BLD ? Anc 6.03 ? Final [place] 10*3/uL [facility] Hospital L ab (Internal) : [address] ? ? BLD High Nlr 5.91 0.00-3.20 Final [facility] L ab (Internal) : [address] ? ? BLD ? Neutro 72.5 % 40.0-75.0 Final [facility] L ab (Internal) : [address] ? ? BLD Low Lymph 12.3 % 20.0-50.0 Final [facility] L ab (Internal) : [address] ? ? BLD ? [place] 7.2 % 2.0-10.0 Final [facility] ([facility] : [address] ? ? BLD ? Eos 5.4 % 1.0-6.0 % Final [facility] Hospital L ab (Internal) : [address] ? ? BLD ? Baso 0.6 % 0.0-1.0 % Final [facility] Hospital L ab (Internal) : [address] ? ? BLD High Ig 2.0 % 0.0-0.9 % Final [facility] Hospital L ab (Internal) : [address] t 10/28/2020 CK S ? Cpk 121 U/L 55-170 Final [place] (Creatine U/L [place] Kinase), Hospital Lab Total, (Internal) : Serum [address] 10/28/2020 CMP, S High g/r 134 mg/dL 74-106 Final [place] th Serum or mg/dL [facility] L ab (Internal) : [address] t ? ? S ? Bun 16 mg/dL 9-20 Final [place] mg/dL [facility] Hospital L ab (Internal) : [address] t ? ? S ? Crea 0.70 mg/dL 0.66-1.25 Final [place] mg/dL [facility] Hospital L ab (Internal) : [address] t ? ? S ? Ca 8.8 mg/dL 8.4-10.2 Final [place] mg/dL [facility] Hospital L ab (Internal) : [address] t ? ? S ? Na 138 mmol/L 137-145 Final [place] mmol/L [facility] Hospital L ab (Internal) : [address] t ? ? S ? K 4.2 mmol/L 3.5-5.1 Final [place] mmol/L [facility] Hospital L ab (Internal) : [address] ? ? S ? Cl 98 mmol/L 98-107 Final [place] mmol/L [facility] Hospital L ab (Internal) : [address] ? ? S ? Tco2 29.0 mmol/L 22.0-30.0 Final No rth mmol/L [facility] Hospital L ab (Internal) : [address] ? ? S ? Tp 7.0 g/dL 6.3-8.2 Final [place] g/dL [facility] Hospital L ab (Internal) : [address] ? ? S Low Alb 3.3 g/dL 3.5-5.0 Final [place] g/dL [facility] Hospital L ab (Internal) : [address] ? ? S ? Tbil 0.3 mg/dL 0.2-1.3 Final [place] mg/dL [facility] Hospital L ab (Internal) : [address] ? ? S High Alp 132 U/L 38-126 Final [place] U/L [facility] Hospital L ab (Internal) : [address] ? ? S ? Alt 22 U/L 21-72 U/L Final [place] (Sgpt) [facility] L ab (Internal) : [address] ? ? S ? Ast 51 U/L 17-59 U/L Final [place] (Sgot) [facility] L ab (Internal) : [address] 10/28/2020 CRP, High S High Rcrp 14.86 mg/dL 0.10-0.30 Fi nal [place] Sensitivi mg/dL [facility] ty, Serum Hospita l Lab or Plasma (Rental Sales Representative al): [address] 10/28/2020 RBC BLD ? [place] small ? Final [place] Morpholog [facility] y, Blood Hospital Lab (Internal) : [address] t ? ? BLD ? Polychr rare ? Final [facility] L ab (Internal) : [address] ? ? BLD ? Teardro occasional ? Final [place] p [facility] Hospital L ab (Internal) : [address] 08/21/2020 CBC W/ BLD ? Wbc 5.4 10*3/uL 5.0-10.0 Final [place] Auto Diff 10*3/uL [facility] Hospital L ab (Internal) : [address] ? ? BLD Low Rbc 3.77 4.60-6.00 Final [place] 10*6/uL 10*6/uL [facility] L ab (Internal) : [address] ? ? BLD Low Hgb 10.4 g/dL 14.0-18.0 Final [place] g/dL [facility] L [facility] (Internal) : [address] ? ? BLD Low Hct 34.6 % 41.0-51.0 Final [facility] Hospital L ab (Internal) : [address] ? ? BLD ? Mcv 91.8 fL 80.0-96.0 Final [facility] Hospital L ab (Internal) : [address] ? ? BLD ? Mch 27.6 pg 26.0-32.0 Final [facility] Hospital L ab (Internal) : [address] [place] ? ? BLD Low Mchc 30.1 g/dL 31.0-35.0 Final [place] g/dL [facility] Hospital L ab (Internal) : [address] ? ? BLD High Rdw 16.5 % 11.5-14.5 Final [facility] L ab (Internal) : [address] ? ? BLD ? Plt 255 10*3/uL 130-450 Final [place] 10*3/uL [facility] Hospital L ab (Internal) : [address] ? ? BLD ? Anc 3.58 ? Final [place] 10*3/uL [facility] Hospital L ab (Internal) : [address] ? ? BLD High Nlr 3.93 0.00-3.20 Final [facility] L ab (Internal) : [address] ? ? BLD ? Neutro 66.9 % 40.0-75.0 Final [facility] L ab (Internal) : [address] ? ? BLD Low Lymph 17.0 % 20.0-50.0 Final [facility] Hospital L ab (Internal) : [address] ? ? BLD ? [place] 8.6 % 2.0-10.0 Final [facility] Hospital L ab (Internal) : [address] ? ? BLD High Eos 6.2 % 1.0-6.0 % Final [facility] L ab (Internal) : [address] ? ? BLD ? Baso 0.9 % 0.0-1.0 % Final [facility] L ab (Internal) : [address] ? ? BLD ? Ig 0.4 % 0.0-0.9 % Final [facility] Hospital L ab (Internal) : [address] t 08/21/2020 CMP, S High g/r 139 mg/dL 74-106 Final [place] Serum or mg/dL [facility] L [facility] (Internal) : [address] ? ? S High Bun 27 mg/dL 9-20 Final [place] mg/dL [facility] Hospital L ab (Internal) : [address] ? ? S ? Crea 0.70 mg/dL 0.66-1.25 Final [place] mg/dL [facility] L [facility] (Internal) : [address] ? ? S ? Ca 8.8 mg/dL 8.4-10.2 Final [place] mg/dL [facility] Hospital L ab (Internal) : [address] ? ? S ? Na 140 mmol/L 137-145 Final [place] mmol/L [facility] Hospital L ab (Internal) : [address] ? ? S ? K 4.8 mmol/L 3.5-5.1 Final [place] mmol/L [facility] L [facility] (Internal) : [address] ? ? S ? Cl 101 mmol/L 98-107 Final [place] mmol/L [facility] Hospital L ab (Internal) : [address] ? ? S ? Tco2 28.0 mmol/L 22.0-30.0 Final No rth mmol/L [facility] L ab (Internal) : [address] ? ? S ? Tp 7.2 g/dL 6.3-8.2 Final [place] g/dL [facility] L ab (Internal) : [address] ? ? S ? Alb 3.6 g/dL 3.5-5.0 Final [place] g/dL [facility] L [facility] (Internal) : [address] ? ? S ? Tbil 0.3 mg/dL 0.2-1.3 Final [place] mg/dL [facility] L ab (Internal) : [address] ? ? S ? Alp 97 U/L 38-126 Final [place] U/L [facility] L ab (Internal) : [address] ? ? S ? Alt 23 U/L 21-72 U/L Final [place] (Sgpt) [facility] Hospital L ab (Internal) : [address] ? ? S High Ast 66 U/L 17-59 U/L [facility] (Sgot) [facility] Hospital L ab (Internal) : [address] 08/21/2020 CRP, High S High Rcrp 7.01 mg/dL 0.10-0.30 Fin [facility] [place] Sensitivi mg/dL [facility] ty, Serum Hospita l Lab or Plasma (Rental Sales Representative al): [address] 08/21/2020 RBC BLD ? [place] small ? Final [place] Morpholog [facility] y, Blood Hospital Lab (Internal) : [address] ? ? BLD ? Polychr rare ? Final [facility] L ab (Internal) : [address] ? ? BLD ? Oval occasional ? Final [facility] L ab (Internal) : [address] 06/26/2020 CBC W/ BLD ? Wbc 5.1 10*3/uL 5.0-10.0 Final [place] Auto Diff 10*3/uL [facility] Hospital L ab (Internal) : [address] ? ? BLD Low Rbc 3.62 4.60-6.00 [facility] 10*6/uL 10*6/uL [facility] L ab (Internal) : [address] ? ? BLD Low Hgb 10.1 g/dL 14.0-18.0 Final [place] g/dL [facility] L ab (Internal) : [address] ? ? BLD Low Hct 33.1 % 41.0-51.0 Final [facility] Hospital L ab (Internal) : [address] ? ? BLD ? Mcv 91.4 fL 80.0-96.0 Final [facility] L ab (Internal) : [address] ? ? BLD ? Mch 27.9 pg 26.0-32.0 Final [facility] L ab (Internal) : [address] ? ? BLD Low Mchc 30.5 g/dL 31.0-35.0 Final [place] g/dL [facility] Hospital L ab (Internal) : [address] ? ? BLD High Rdw 17.8 % 11.5-14.5 Final [facility] L ab (Internal) : [address] ? ? BLD ? Plt 228 10*3/uL 130-450 Final [place] 10*3/uL [facility] Hospital L ab (Internal) : [address] ? ? BLD ? Anc 3.34 ? Final [place] 10*3/uL [facility] Hospital L ab (Internal) : [address] ? ? BLD High Nlr 3.63 0.00-3.20 Final [facility] L ab (Internal) : [address] ? ? BLD ? Neutro 65.0 % 40.0-75.0 Final [facility] L ab (Internal) : [address] ? ? BLD Low Lymph 17.9 % 20.0-50.0 Final [facility] L ab (Internal) : [address] ? ? BLD ? [place] 9.7 % 2.0-10.0 Final [facility] L ab (Internal) : [address] ? ? BLD High Eos 6.4 % 1.0-6.0 % Final [facility] L ab (Internal) : [address] ? ? BLD ? Baso 0.8 % 0.0-1.0 % Final [facility] L ab (Internal) : [address] ? ? BLD ? Ig 0.2 % 0.0-0.9 % Final [facility] L ab (Internal) : [address] 06/26/2020 CMP, S High g/r 112 mg/dL 74-106 Final [place] Serum or mg/dL [facility] Plasma Hospital L ab (Internal) : [address] ? ? S High Bun 24 mg/dL 9-20 Final [place] mg/dL [facility] Hospital L ab (Internal) : [address] ? ? S ? Crea 0.80 mg/dL 0.66-1.25 Final [place] mg/dL [facility] L [facility] (Internal) : [address] ? ? S ? Ca 8.7 mg/dL 8.4-10.2 Final [place] mg/dL [facility] L [facility] (Internal) : [address] ? ? S ? Na 139 mmol/L 137-145 Final [place] mmol/L [facility] L [facility] (Internal) : [address] ? ? S ? K 5.0 mmol/L 3.5-5.1 Final [place] mmol/L [facility] L [facility] (Internal) : [address] ? ? S ? Cl 104 mmol/L 98-107 Final [place] mmol/L [facility] L [facility] (Internal) : [address] ? ? S ? Tco2 28.0 mmol/L 22.0-30.0 Final No rth mmol/L [facility] L ab (Internal) : [address] ? ? S ? Tp 7.0 g/dL 6.3-8.2 Final [place] g/dL [facility] L ab (Internal) : [address] ? ? S ? Alb 3.5 g/dL 3.5-5.0 Final [place] g/dL [facility] L [facility] (Internal) : [address] ? ? S ? Tbil 0.3 mg/dL 0.2-1.3 Final [place] mg/dL [facility] L ab (Internal) : [address] ? ? S ? Alp 87 U/L 38-126 Final [place] U/L [facility] L [facility] (Internal) : [address] ? ? S Low Alt 19 U/L 21-72 U/L Final [place] (Sgpt) [facility] L [facility] (Internal) : [address] ? ? S ? Ast 40 U/L 17-59 U/L Final [place] (Sgot) [facility] Hospital L ab (Internal) : [address] 06/26/2020 RBC BLD ? [place] small ? Final [place] Morpholog [facility], Blood Hospital Lab (Internal) : [address] ? ? BLD ? Polychr occasional ? Final [facility] L ab (Internal) : [address] ? ? BLD ? Oval rare ? Final [facility] L ab (Internal) : [address] 06/26/2020 Thyroid S Low Tsh 0.46 0.47-4.68 Final No rth Amery, u[IU]/mL u[IU]/mL Coun [facility] Serum Hospital L ab (Internal) : [address] 06/26/2020 T4, Free, S ? Ft4 1.41 NG/dL 0.78-2.19 Fin al [place] Serum NG/dL [facility] L ab (Internal) : [address] [facility] 06/26/2020 CRP, High S High Rcrp 7.86 mg/dL 0.10-0.30 Cor rected [place] Sensitivi mg/dL [facility], Serum Hospita l Lab or Plasma (Rental Sales Representative al): [address] 05/24/2020 HbA1C BLD ? Ha1C 6.0 % 4.0-6.0 % Final [place] (Hemoglob Country in a1C), Hospital Lab Blood (Internal) : [address] 05/24/2020 CBC W/ BLD ? Wbc 5.0 10*3/uL 5.0-10.0 Final [place] Auto Diff 10*3/uL [facility] Hospital L ab (Internal) : [address] ? ? BLD Low Rbc 3.55 4.60-6.00 Final [place] 10*6/uL 10*6/uL [facility] L ab (Internal) : [address] ? ? BLD Low Hgb 9.8 g/dL 14.0-18.0 Final [place] g/dL [facility] L ab (Internal) : [address] ? ? BLD Low Hct 32.8 % 41.0-51.0 Final [place] % [facility] L ab (Internal) : [address] ? ? BLD ? Mcv 92.4 fL 80.0-96.0 Final [place] fL [facility] L ab (Internal) : [address] ? ? BLD ? Mch 27.6 pg 26.0-32.0 Final [facility] L ab (Internal) : [address] ? ? BLD Low Mchc 29.9 g/dL 31.0-35.0 Final [place] g/dL [facility] Hospital L ab (Internal) : [address] ? ? BLD High Rdw 18.6 % 11.5-14.5 Final [facility] L ab (Internal) : [address] ? ? BLD ? Plt 231 10*3/uL 130-450 Final [place] 10*3/uL [facility] Hospital L ab (Internal) : [address] ? ? BLD ? Anc 3.19 ? Final [place] 10*3/uL [facility] Hospital L ab (Internal) : [address] ? ? BLD High Nlr 3.75 0.00-3.20 Final [facility] L ab (Internal) : [address] ? ? BLD ? Neutro 63.3 % 40.0-75.0 Final [facility] L ab (Internal) : [address] ? ? BLD Low Lymph 16.9 % 20.0-50.0 Final [facility] L ab (Internal) : [address] ? ? BLD ? [place] 9.5 % 2.0-10.0 Final [facility] L ab (Internal) : [address] ? ? BLD High Eos 8.7 % 1.0-6.0 % Final [facility] L ab (Internal) : [address] ? ? BLD High Baso 1.2 % 0.0-1.0 % Final [facility] L ab (Internal) : [address] ? ? BLD ? Ig 0.4 % 0.0-0.9 % Final [facility] L ab (Internal) : [address] 05/24/2020 CMP, S High g/r 110 mg/dL 74-106 Final [place] Serum or mg/dL [facility] L ab (Internal) : [address] ? ? S High Bun 23 mg/dL 9-20 Final [place] mg/dL [facility] Hospital L ab (Internal) : [address] ? ? S Low Crea 0.60 mg/dL 0.66-1.25 Final [place] mg/dL [facility] L ab (Internal) : [address] ? ? S ? Ca 8.8 mg/dL 8.4-10.2 Final [place] mg/dL [facility] L ab (Internal) : [address] ? ? S ? Na 140 mmol/L 137-145 Final [place] mmol/L [facility] Hospital L ab (Internal) : [address] ? ? S ? K 4.5 mmol/L 3.5-5.1 Final [place] mmol/L [facility] Hospital L ab (Internal) : [address] ? ? S High Cl 108 mmol/L 98-107 Final [place] mmol/L [facility] Hospital L ab (Internal) : [address] ? ? S ? Tco2 26.0 mmol/L 22.0-30.0 Final No rth mmol/L [facility] L ab (Internal) : [address] ? ? S ? Tp 7.1 g/dL 6.3-8.2 Final [place] g/dL [facility] Hospital L ab (Internal) : [address] ? ? S ? Alb 3.5 g/dL 3.5-5.0 Final [place] g/dL [facility] Hospital L ab (Internal) : [address] ? ? S ? Tbil 0.3 mg/dL 0.2-1.3 Final [place] mg/dL [facility] Hospital L ab (Internal) : [address] ? ? S ? Alp 90 U/L 38-126 Final [place] U/L [facility] L ab (Internal) : [address] ? ? S ? Alt 21 U/L 21-72 U/L Final [place] (Sgpt) [facility] Hospital L ab (Internal) : [address] ? ? S ? Ast 36 U/L 17-59 U/L Final [place] (Sgot) [facility] Hospital L ab (Internal) : [address] 05/24/2020 TSH, S Low Tsh <0.05 0.47-4.68 Final [place] Serum or u[IU]/mL u[IU]/mL Coun try Plasma Hospital L ab (Internal) : [address] [facility] 05/24/2020 CRP, High S High Rcrp 6.95 mg/dL 0.10-0.30 Fin [facility] [place] Sensitivi mg/dL Country ty, Serum Hospita l Lab or Plasma (Rental Sales Representative al): [address] [facility] 05/24/2020 RBC BLD ? [place] small ? Final [place] Morpholog Country y, Blood Hospital Lab (Internal) : [address] [facility] t ? ? BLD ? Polychr occasional ? Final Nort h [facility] Hospital L ab (Internal) : [address] [facility] ? ? BLD ? Oval occasional ? Final [facility] L ab (Internal) : [address] [facility] 09/21/2019 HbA1C BLD ? Ha1C 6.0 % 4.0-6.0 % Final Nor (Hemoglob Country in a1C), Hospital Lab Blood (Internal) : [address] [facility] 09/21/2019 Thyroid S ? Tsh 3.86 0.47-4.68 Final No rth Amery, u[IU]/mL u[IU]/mL Coun try Serum Hospital L ab (Internal) : [address] [facility] 05/23/2019 Thyroid S High Tsh 5.54 0.47-4.68 Final No rth Amery, u[IU]/mL u[IU]/mL Coun try Serum Hospital L ab (Internal) : [address] [facility] 05/23/2019 T4, Free, S - Ft4 1.07 NG/dL 0.78-2.19 Fin [facility] [place] Serum NG/dL [facility] Hospital L ab (Internal) : [address] [facility] 04/11/2019 Thyroid S High Tsh 10.60 0.47-4.68 Final No rth Amery, u[IU]/mL u[IU]/mL Coun try Serum Hospital L ab (Internal) : [address] [facility] 04/11/2019 T4, Free, S - Ft4 1.05 NG/dL 0.78-2.19 Fin [facility] [place] Serum NG/dL [facility] Hospital L ab (Internal) : [address] 04/11/2019 Venipunct Blood ? Locatio Left ? ? P _nc Primary ure venous n Antecubital Care [place]: [address], [place] ? ? Blood ? Needle 21g ? ? P_nc Prim adamaris venous Vacutainer Care [place]: [address], [place] ? ? Blood ? Number 1 ? ? P_nc Prim adamaris venous of Care Attempts [place]: [address], [place] ? ? Blood ? Success Yes ? ? P_nc Cathy lali venous ful Care [place]: [address], [place] ? ? Blood ? Dressin Pressure ? ? P_nc P rimary venous g Band-aid Care Applied [place]: [address], [place] 03/27/2019 Neutrophi BLD - Anc-man 3.31 ? Final N orth l Count, ual 10*3/uL [facility] Lab (Anc), (Internal) : Blood [address] 03/27/2019 Different BLD - Polys 57 % 40-75 % Final No rth ial, Country Manual, Hospital Lab Blood (Internal) : [address] ? ? BLD - Bands 0 % 0-5 % Final [facility] Hospital L ab (Internal) : [address] ? ? BLD - Lymphs 22 % 20-50 % Final [facility] Hospital L ab (Internal) : [address] ? ? BLD - [place] 6 % 2-10 % Final [facility] Hospital L ab (Internal) : [address] ? ? BLD High Eos 11 % 0-6 % Final [facility] Hospital L ab (Internal) : [address] ? ? BLD - Baso 0 % 0-1 % Final [facility] Hospital L ab (Internal) : [address] ? ? BLD - Atyp 2 % ? Final [place] [facility] L ab (Internal) : [address] ? ? BLD - [place] 2 % ? Final [facility] Hospital L ab (Internal) : [address] ? ? BLD ABNORMAL Plts, clumped adequate Final [place] [facility] L ab (Internal) : [address] ? ? BLD ABNORMAL RBC abnormal normal Final [place] Morpholo [facility] L ab (Internal) : [address] ? ? BLD - [place] moderate ? Final [facility] Hospital L ab (Internal) : [address] ? ? BLD - Poik occasional ? Final [place] [hpf] [facility] Hospital L ab (Internal) : [address] ? ? BLD - Polychr occasional ? Final Nort [place] om [facility] Hospital L ab (Internal) : [address] ? ? BLD - Oval occasional ? Final [facility] Hospital L ab (Internal) : [address] 03/27/2019 CRP, High S High Rcrp 2.72 mg/dL 0.10-0.30 Fin al [place] Sensitivi mg/dL Country ty, Serum Hospita l Lab or Plasma (Rental Sales Representative al): [address] 03/27/2019 CK S High Cpk 192 U/L 55-170 Final [place] (Creatine U/L [place] Kinase), Hospital Lab Total, (Internal) : Serum [address] 03/27/2019 CMP, S High g/r 116 mg/dL 74-106 Final [place] Serum or mg/dL [facility] Plasma Hospital L ab (Internal) : [address] ? ? S - Bun 12 mg/dL 9-20 Final [place] mg/dL [facility] Hospital L ab (Internal) : [address] ? ? S Low Crea 0.60 mg/dL 0.66-1.25 Final [place] mg/dL [facility] Hospital L ab (Internal) : [address] ? ? S - Ca 8.6 mg/dL 8.4-10.2 Final [place] mg/dL [facility] Hospital L ab (Internal) : [address] ? ? S - Na 139 mmol/L 137-145 Final [place] mmol/L [facility] Hospital L ab (Internal) : [address] ? ? S - K 4.2 mmol/L 3.5-5.1 Final [place] mmol/L [facility] Hospital L ab (Internal) : [address] ? ? S - Cl 104 mmol/L 98-107 Final [place] mmol/L [facility] Hospital L ab (Internal) : [address] ? ? S - Tco2 27.0 mmol/L 22.0-30.0 Final No rth mmol/L [facility] Hospital L ab (Internal) : [address] ? ? S - Tp 7.4 g/dL 6.3-8.2 Final [place] g/dL [facility] Hospital L ab (Internal) : [address] ? ? S Low Alb 3.2 g/dL 3.5-5.0 Final [place] g/dL [facility] Hospital L ab (Internal) : [address] ? ? S - Tbil 0.4 mg/dL 0.2-1.3 Final [place] mg/dL [facility] Hospital L ab (Internal) : [address] ? ? S High Alp 157 U/L 38-126 Final [place] U/L [facility] Hospital L ab (Internal) : [address] ? ? S Low Alt 18 U/L 21-72 U/L Final [place] (Sgpt) [facility] Hospital L ab (Internal) : [address] ? ? S - Ast 49 U/L 17-59 U/L Final [place] (Sgot) [facility] Hospital L ab (Internal) : [address] 03/27/2019 CBC W/ BLD - Wbc 5.8 10*3/uL 5.0-10.0 Final [place] Auto Diff 10*3/uL Countr Hospital L ab (Internal) : [address] ? ? BLD Low Rbc 3.49 4.60-6.00 Final [place] 10*6/uL 10*6/uL [facility] Hospital L ab (Internal) : [address] ? ? BLD Low Hgb 10.0 g/dL 14.0-18.0 Final Nort h g/dL [facility] Hospital L ab (Internal) : [address] ? ? BLD Low Hct 32.4 % 41.0-51.0 Final [place] % [facility] Hospital L ab (Internal) : [address] ? ? BLD - Mcv 92.8 fL 80.0-96.0 Final [facility] Hospital L ab (Internal) : [address] ? ? BLD - Mch 28.7 pg 26.0-32.0 Final [place] [place] [facility] L ab (Internal) : [address] ? ? BLD Low Mchc 30.9 g/dL 31.0-35.0 Final Nort h g/dL [facility] L ab (Internal) : [address] t ? ? BLD High Rdw 18.6 % 11.5-14.5 Final [facility] Hospital L ab (Internal) : [address] ? ? BLD - Plt 417 10*3/uL 130-450 Final Nort h 10*3/uL [facility] L ab (Internal) : [address] 03/20/2019 Neutrophi BLD - Anc-man 4.85 ? Final N orth l Count, ual 10*3/uL [facility] Lab (Anc), (Internal) : Blood [address] 03/20/2019 Different BLD - Polys 74 % 40-75 % Final No rth ial, Country Manual, Hospital Lab Blood (Internal) : [address] t ? ? BLD - Bands 0 % 0-5 % Final [facility] Hospital L ab (Internal) : [address] t ? ? BLD Low Lymphs 14 % 20-50 % Final [facility] L ab (Internal) : [address] t ? ? BLD - [place] 5 % 2-10 % Final [facility] L ab (Internal) : [address] t ? ? BLD - Eos 6 % 0-6 % Final [facility] L ab (Internal) : [address] ? ? BLD - Baso 0 % 0-1 % Final [facility] L ab (Internal) : [address] ? ? BLD - Atyp 0 % ? Final [facility] ([facility] : [address] t ? ? BLD High Young 1 % 0-0 % Final [facility] Hospital L ab (Internal) : [address] ? ? BLD - Plts, adequate adequate Final [place] [facility] (Internal) : [address] t ? ? BLD ABNORMAL RBC abnormal normal [facility] : [address] t ? ? BLD - [place] moderate ? Final [facility] L ab (Internal) : [address] ? ? BLD - Polychr rare ? Final [facility] Hospital L ab (Internal) : [address] t ? ? BLD - Oval rare ? Final [facility] L ab (Internal) : [address] t 03/20/2019 CK S - Cpk 158 U/L 55-170 Final [place] (Creatine U/L Country Kinase), Hospital Lab Total, (Internal) : Serum [address] 03/20/2019 CRP, High S High Rcrp 16.94 mg/dL 0.10-0.30 Fi nal [place] Sensitivi mg/dL Country ty, Serum Hospita l Lab or Plasma (Rental Sales Representative al): [address] t 03/20/2019 CMP, S High g/r 125 mg/dL 74-106 Final [place] Serum or mg/dL [facility] Hospital L ab (Internal) : [address] ? ? S Low Bun 8 mg/dL 9-20 Final [place] mg/dL [facility] L ab (Internal) : [address] ? ? S Low Crea 0.60 mg/dL 0.66-1.25 Final [place] mg/dL [facility] L ab (Internal) : [address] t ? ? S - Ca 8.4 mg/dL 8.4-10.2 Final [place] mg/dL [facility] L ab (Internal) : [address] t ? ? S - Na 140 mmol/L 137-145 Final [place] mmol/L [facility] L ab (Internal) : [address] t ? ? S - K 3.5 mmol/L 3.5-5.1 Final [place] mmol/L [facility] L ab (Internal) : [address] t ? ? S High Cl 108 mmol/L 98-107 Final [place] mmol/L [facility] L ab (Internal) : [address] ? ? S - Tco2 25.0 mmol/L 22.0-30.0 Final No rth mmol/L [facility] L ab (Internal) : [address] ? ? S - Tp 6.8 g/dL 6.3-8.2 Final [place] g/dL [facility] L ab (Internal) : [address] t ? ? S Low Alb 2.9 g/dL 3.5-5.0 Final [place] g/dL [facility] L ab (Internal) : [address] t ? ? S - Tbil 0.4 mg/dL 0.2-1.3 Final [place] mg/dL [facility] L ab (Internal) : [address] t ? ? S High Alp 156 U/L 38-126 Final [place] U/L [facility] L ab (Internal) : [address] ? ? S - Alt 28 U/L 21-72 U/L Final [place] (Sgpt) [facility] L ab (Internal) : [address] t ? ? S - Ast 34 U/L 17-59 U/L Final [place] (Sgot) [facility] L ab (Internal) : [address] 03/20/2019 CBC W/ BLD - Wbc 6.6 10*3/uL 5.0-10.0 Final [place] Auto Diff 10*3/uL [facility] Hospital L ab (Internal) : [address] t ? ? BLD Low Rbc 2.93 4.60-6.00 Final [place] 10*6/uL 10*6/uL [facility] L ab (Internal) : [address] t ? ? BLD Low Hgb 8.4 g/dL 14.0-18.0 Final [place] g/dL [facility] L ab (Internal) : [address] t ? ? BLD Low Hct 27.1 % 41.0-51.0 Final [place] % [facility] L ab (Internal) : [address] t ? ? BLD - Mcv 92.5 fL 80.0-96.0 Final [facility] Hospital L ab (Internal) : [address] t ? ? BLD - Mch 28.7 pg 26.0-32.0 Final [facility] Hospital L ab (Internal) : [address] t ? ? BLD - Mchc 31.0 g/dL 31.0-35.0 [facility] L [facility] (Internal) : [address] t ? ? BLD High Rdw 17.2 % 11.5-14.5 Final [facility] L ab (Internal) : [address] t ? ? BLD - Plt 399 10*3/uL 130-450 Final Nort h 10*3/uL [facility] L ab (Internal) : [address] t 03/12/2019 CBC W/ BLD - Wbc 7.4 10*3/uL 5.0-10.0 Final [place] Auto Diff 10*3/uL [facility] Hospital L ab (Internal) : [address] t ? ? BLD Low Rbc 3.10 4.60-6.00 Final [place] 10*6/uL 10*6/uL [facility] L ab (Internal) : [address] t ? ? BLD Low Hgb 8.7 g/dL 14.0-18.0 Final [place] g/dL [facility] L ab (Internal) : [address] t ? ? BLD Low Hct 28.4 % 41.0-51.0 Final [facility] L ab (Internal) : [address] ? ? BLD - Mcv 91.6 fL 80.0-96.0 Final [facility] Hospital L ab (Internal) : [address] t ? ? BLD - Mch 28.1 pg 26.0-32.0 Final [facility] Hospital L ab (Internal) : [address] t ? ? BLD Low Mchc 30.6 g/dL 31.0-35.0 Final Nort [place] g/dL [facility] L ab (Internal) : [address] t ? ? BLD High Rdw 16.1 % 11.5-14.5 Final [facility] L ab (Internal) : [address] t ? ? BLD - Plt 329 10*3/uL 130-450 Final Nort h 10*3/uL [facility] L ab (Internal) : [address] t ? ? BLD - Anc 5.62 ? Final [place] 10*3/uL [facility] L ab (Internal) : [address] ? ? BLD High Neutro 76.1 % 40.0-75.0 Final [facility] L ab (Internal) : [address] ? ? BLD Low Lymph 11.0 % 20.0-50.0 Final [facility] L ab (Internal) : [address] ? ? BLD - [place] 5.8 % 2.0-10.0 Final [facility] L ab (Internal) : [address] ? ? BLD High Eos 6.1 % 1.0-6.0 % Final [facility] L ab (Internal) : [address] ? ? BLD - Baso 0.5 % 0.0-1.0 % Final [facility] L ab (Internal) : [address] ? ? BLD - Ig 0.5 % 0.0-0.9 % Final [facility] L ab (Internal) : [address] t 03/12/2019 Lactic S - La 1.0 mmol/L 0.7-2.1 Final N orth Acid, mmol/L [facility] Hospital L ab (Internal) : [address] t 03/12/2019 Culture, BLD - Final microbiolog ? Final [place] Blood 1 y results Countr y Hospital L ab (Internal) : [address] t 03/12/2019 Culture, BLD - Final microbiolog ? Final [place] Blood 2 y results Countr y Hospital L ab (Internal) : [address] t 03/12/2019 CMP, S High g/r 109 mg/dL 74-106 Final Nor th Serum or mg/dL [facility] L ab (Internal) : [address] ? ? S - Bun 9 mg/dL 9-20 Final [place] mg/dL [facility] L ab (Internal) : [address] ? ? S Low Crea 0.50 mg/dL 0.66-1.25 Final [place] mg/dL [facility] ([facility] : [address] t ? ? S Low Ca 8.1 mg/dL 8.4-10.2 Final [place] mg/dL [facility] (Internal) : [address] t ? ? S - Na 137 mmol/L 137-145 Final [place] mmol/L [facility] (Internal) : [address] t ? ? S - K 3.8 mmol/L 3.5-5.1 Final [place] mmol/L [facility] L [facility] (Internal) : [address] t ? ? S - Cl 106 mmol/L 98-107 Final [place] mmol/L [facility] (Internal) : [address] ? ? S - Tco2 26.0 mmol/L 22.0-30.0 Final No rth mmol/L [facility] L ab (Internal) : [address] t ? ? S - Tp 6.8 g/dL 6.3-8.2 Final [place] g/dL [facility] L [facility] (Internal) : [address] ? ? S Low Alb 2.9 g/dL 3.5-5.0 Final [place] g/dL [facility] L [facility] (Internal) : [address] ? ? S - Tbil 0.4 mg/dL 0.2-1.3 Final [place] mg/dL [facility] (Internal) : [address] ? ? S - Alp 106 U/L 38-126 Final [place] U/L [facility] L [facility] (Internal) : [address] ? ? S - Alt 31 U/L 21-72 U/L Final [place] (Sgpt) [facility] L [facility] (Internal) : [address] ? ? S - Ast 40 U/L 17-59 U/L Final [place] (Sgot) [facility] L ab (Internal) : [address] 03/12/2019 RBC BLD - [place] small ? Final [place] Morpholog Country y, Blood Hospital Lab (Internal) : [address] ? ? BLD - Oval occasional ? Final [facility] L ab (Internal) : [address] t 03/12/2019 Urinalysi UR - UA-colo yellow pale Final N orth s, r yellow Country Dipstick, Hospita l Lab Reflex (Internal) : Micro [address] ? ? UR - UA-appe clear clear Final [facility] Hospital L ab (Internal) : [address] ? ? UR - UA-spec 1.015 1.003-1.0 Final [place] Grav 35 [facility] L ab (Internal) : [address] ? ? UR - UA-pH 7.0 [pH] 4.6-8.0 Final [place] [pH] [facility] L ab (Internal) : [address] ? ? UR - UA-leuk negative negative Final Nort [facility] Est [facility] L ab (Internal) : [address] ? ? UR - UA-nitr negative negative Final Nort h ite [facility] ab (Internal) : [address] ? ? UR - UA-prot negative negative Final Nort h [facility] ab (Internal) : [address] ? ? UR - UA-gluc negative negative Final Nort h [facility] ab (Internal) : [address] ? ? UR ABNORMAL UA-keto trace negative Final Nort h ne [facility] L ab (Internal) : [address] ? ? UR ABNORMAL UA-urob positive normal Final Nort h il [facility] L ab (Internal) : [address] t ? ? UR - UA-bili negative negative Final Nort h [facility] ab (Internal) : [address] t ? ? UR - UA-bloo negative negative Final Nort h d [facility] ab (Internal) : [address] 03/12/2019 Lactic S High La 3.9 mmol/L 0.7-2.1 Final N orth Acid, mmol/L [facility] [address] 03/12/2019 Culture, BLD - Final microbiolog ? Final [place] Blood 1 y results Countr y Hospital L ab (Internal) : [address] t 03/12/2019 CBC W/ BLD - Wbc 5.8 10*3/uL 5.0-10.0 Final [place] Auto Diff 10*3/uL [facility] Hospital L ab (Internal) : [address] t ? ? BLD Low Rbc 3.36 4.60-6.00 Final [place] 10*6/uL 10*6/uL [facility] Hospital L ab (Internal) : [address] t ? ? BLD Low Hgb 9.5 g/dL 14.0-18.0 Final [place] g/dL [facility] L ab (Internal) : [address] ? ? BLD Low Hct 30.8 % 41.0-51.0 Final [facility] Hospital L ab (Internal) : [address] ? ? BLD - Mcv 91.7 fL 80.0-96.0 Final [facility] Hospital L ab (Internal) : [address] t ? ? BLD - Mch 28.3 pg 26.0-32.0 Final [place] pg [facility] L ab (Internal) : [address] ? ? BLD Low Mchc 30.8 g/dL 31.0-35.0 Final Nort h g/dL [facility] L ab (Internal) : [address] ? ? BLD High Rdw 16.3 % 11.5-14.5 Final [facility] Hospital L ab (Internal) : [address] ? ? BLD - Plt 336 10*3/uL 130-450 Final Nort h 10*3/uL [facility] L ab (Internal) : [address] 03/12/2019 Culture, BLD - Final microbiolog ? Final [place] Blood 2 y results Countr y Hospital L ab (Internal) : [address] 03/12/2019 CMP, S High g/r 117 mg/dL 74-106 Final Nor th Serum or mg/dL Country [facility] Hospital L ab (Internal) : [address] ? ? S - Bun 9 mg/dL 9-20 Final [place] mg/dL [facility] L [facility] (Internal) : [address] ? ? S Low Crea 0.60 mg/dL 0.66-1.25 Final [place] mg/dL [facility] L ab (Internal) : [address] ? ? S - Ca 8.4 mg/dL 8.4-10.2 Final [place] mg/dL [facility] L [facility] (Internal) : [address] ? ? S - Na 137 mmol/L 137-145 Final [place] mmol/L [facility] L [facility] (Internal) : [address] ? ? S - K 4.0 mmol/L 3.5-5.1 Final [place] mmol/L [facility] (Internal) : [address] ? ? S - Cl 105 mmol/L 98-107 Final [place] mmol/L [facility] L ab (Internal) : [address] t ? ? S - Tco2 23.0 mmol/L 22.0-30.0 Final No rth mmol/L [facility] L ab (Internal) : [address] ? ? S - Tp 7.3 g/dL 6.3-8.2 Final [place] g/dL [facility] L [facility] (Internal) : [address] t ? ? S Low Alb 3.2 g/dL 3.5-5.0 Final [place] g/dL [facility] L [facility] (Internal) : [address] ? ? S - Tbil 0.3 mg/dL 0.2-1.3 Final [place] mg/dL [facility] L [facility] (Internal) : [address] ? ? S - Alp 119 U/L 38-126 Final [place] U/L [facility] L ab (Internal) : [address] ? ? S - Alt 27 U/L 21-72 U/L Final [place] (Sgpt) [facility] L ab (Internal) : [address] ? ? S - Ast 53 U/L 17-59 U/L Final [place] (Sgot) [facility] L ab (Internal) : [address] 03/12/2019 Different BLD High Polys 85 % 40-75 % Final No rth ial, Country Manual, Hospital Lab Blood (Internal) : [address] ? ? BLD - Bands 2 % 0-5 % Final [facility] Hospital L ab (Internal) : [address] t ? ? BLD Low Lymphs 7 % 20-50 % Final [facility] Hospital L ab (Internal) : [address] t ? ? BLD Low [place] 0 % 2-10 % Final [facility] Hospital L ab (Internal) : [address] ? ? BLD - Eos 6 % 0-6 % Final [facility] Hospital L ab (Internal) : [address] ? ? BLD - Baso 0 % 0-1 % Final [facility] Hospital L ab (Internal) : [address] ? ? BLD - Atyp 0 % ? Final [facility] (Internal) : [address] ? ? BLD - Plts, adequate adequate Final [facility] Hospital L ab (Internal) : [address] t ? ? BLD ABNORMAL RBC abnormal normal Final [facility] Hospital L ab (Internal) : [address] t ? ? BLD - [place] small ? Final [facility] L ab (Internal) : [address] t ? ? BLD - Poik occasional ? Final [place] [hpf] [facility] L ab (Internal) : [address] ? ? BLD - Oval occasional ? Final [facility] Hospital L ab (Internal) : [address] 03/12/2019 Neutrophi BLD - Anc-man 5.06 ? Final N orth l Count, ual 10*3/uL [facility] Lab (Anc), (Internal) : Blood [address] t 03/06/2019 CK S High Cpk 507 U/L 55-170 Final [place] (Creatine U/L Country Kinase), Hospital Lab Total, (Internal) : Serum [address] 03/06/2019 CRP, High S High Rcrp 25.33 mg/dL 0.10-0.30 nal [place] Sensitivi mg/dL Country ty, Serum Hospita l Lab or Plasma (Rental Sales Representative al): [address] 03/06/2019 Neutrophi BLD - Anc-man 4.97 ? Final N orth l Count, ual 10*3/uL [facility] Lab (Anc), (Internal) : Blood [address] 03/06/2019 Different BLD - Polys 69 % 40-75 % Final No rth ial, Country Manual, Hospital Lab Blood (Internal) : [address] ? ? BLD - Bands 0 % 0-5 % Final [facility] Hospital L ab (Internal) : [address] ? ? BLD Low Lymphs 13 % 20-50 % Final [facility] Hospital L ab (Internal) : [address] ? ? BLD - [place] 2 % 2-10 % Final [facility] L ab (Internal) : [address] ? ? BLD High Eos 15 % 0-6 % Final [facility] Hospital L ab (Internal) : [address] ? ? BLD - Baso 1 % 0-1 % Final [facility] Hospital L ab (Internal) : [address] ? ? BLD - Atyp 0 % ? Final [facility] (Internal) : [address] ? ? BLD - Plts, adequate adequate Final [facility] Hospital L ab (Internal) : [address] ? ? BLD ABNORMAL RBC abnormal normal Final [facility] Hospital L ab (Internal) : [address] ? ? BLD - [place] small ? Final [facility] Hospital L ab (Internal) : [address] ? ? BLD - Polychr occasional ? Final Nort h [facility] Hospital L ab (Internal) : [address] ? ? BLD - Schist rare ? Final [facility] Hospital L ab (Internal) : [address] 03/06/2019 CMP, S High g/r 133 mg/dL 74-106 Final Nor th Serum or mg/dL [facility] Plasma Hospital L ab (Internal) : [address] ? ? S - Bun 12 mg/dL 9-20 Final [place] mg/dL [facility] L ab (Internal) : [address] ? ? S - Crea 0.80 mg/dL 0.66-1.25 Final [place] mg/dL [facility] L ab (Internal) : [address] ? ? S - Ca 8.9 mg/dL 8.4-10.2 Final [place] mg/dL [facility] L ab (Internal) : [address] ? ? S - Na 138 mmol/L 137-145 Final [place] mmol/L [facility] L ab (Internal) : [address] ? ? S - K 3.8 mmol/L 3.5-5.1 Final [place] mmol/L [facility] L ab (Internal) : [address] t ? ? S - Cl 104 mmol/L 98-107 Final [place] mmol/L [facility] L ab (Internal) : [address] t ? ? S - Tco2 27.0 mmol/L 22.0-30.0 Final No rth mmol/L [facility] L ab (Internal) : [address] t ? ? S - Tp 7.2 g/dL 6.3-8.2 Final [place] g/dL [facility] L ab (Internal) : [address] t ? ? S Low Alb 3.2 g/dL 3.5-5.0 Final [place] g/dL [facility] L ab (Internal) : [address] ? ? S - Tbil 0.4 mg/dL 0.2-1.3 Final [place] mg/dL [facility] L ab (Internal) : [address] ? ? S - Alp 123 U/L 38-126 Final [place] U/L [facility] L ab (Internal) : [address] ? ? S - Alt 29 U/L 21-72 U/L Final [place] (Sgpt) [facility] Hospital L ab (Internal) : [address] ? ? S High Ast 61 U/L 17-59 U/L Final [place] (Sgot) [facility] Hospital L ab (Internal) : [address] t 03/06/2019 CBC W/ BLD - Wbc 7.2 10*3/uL 5.0-10.0 Final [place] Auto Diff 10*3/uL [facility] Hospital L ab (Internal) : [address] ? ? BLD Low Rbc 3.43 4.60-6.00 Final [place] 10*6/uL 10*6/uL [facility] Hospital L ab (Internal) : [address] [place] ? ? BLD Low Hgb 9.9 g/dL 14.0-18.0 Final [place] g/dL [facility] Hospital L ab (Internal) : [address] ? ? BLD Low Hct 31.6 % 41.0-51.0 Final [facility] L ab (Internal) : [address] [place] ? ? BLD - Mcv 92.1 fL 80.0-96.0 Final [facility] L ab (Internal) : [address] ? ? BLD - Mch 28.9 pg 26.0-32.0 Final [place] pg [facility] L ab (Internal) : [address] [place] ? ? BLD - Mchc 31.3 g/dL 31.0-35.0 Final Nort h g/dL [facility] Hospital L ab (Internal) : [address] [place] ? ? BLD High Rdw 16.2 % 11.5-14.5 Final [facility] L ab (Internal) : [address] ? ? BLD - Plt 360 10*3/uL 130-450 Final Nort h 10*3/uL [facility] Hospital L ab (Internal) : [address] [place] 02/07/2019 CBC W/ BLD - Wbc 8.0 10*3/uL 5.0-10.0 Final [place] Auto Diff 10*3/uL [facility] Hospital L ab (Internal) : [address] ? ? BLD Low Rbc 3.68 4.60-6.00 Final [place] 10*6/uL 10*6/uL [facility] Hospital L ab (Internal) : [address] ? ? BLD Low Hgb 10.8 g/dL 14.0-18.0 Final Nort [place] g/dL [facility] Hospital L ab (Internal) : [address], [place] ? ? BLD Low Hct 33.8 % 41.0-51.0 Final [facility] Hospital L ab (Internal) : [address] [place] ? ? BLD - Mcv 91.8 fL 80.0-96.0 Final [facility] Hospital L ab (Internal) : [address] ? ? BLD - Mch 29.3 pg 26.0-32.0 Final [facility] Hospital L ab (Internal) : [address] ? ? BLD - Mchc 32.0 g/dL 31.0-35.0 [facility] L ab (Internal) : [address] t ? ? BLD High Rdw 16.1 % 11.5-14.5 Final [facility] Hospital L ab (Internal) : [address] ? ? BLD - Plt 246 10*3/uL 130-450 Final Nort h 10*3/uL [facility] Hospital L ab (Internal) : [address] ? ? BLD - Anc 5.46 ? Final [place] 10*3/uL [facility] Hospital L ab (Internal) : [address] ? ? BLD - Neutro 68.7 % 40.0-75.0 Final [facility] Hospital L ab (Internal) : [address] ? ? BLD Low Lymph 14.7 % 20.0-50.0 Final [facility] Hospital L ab (Internal) : [address] ? ? BLD High [place] 10.4 % 2.0-10.0 Final [facility] Hospital L ab (Internal) : [address] ? ? BLD - Eos 5.0 % 1.0-6.0 % Final [facility] Hospital L ab (Internal) : [address] ? ? BLD - Baso 0.6 % 0.0-1.0 % Final [facility] Hospital L ab (Internal) : [address] ? ? BLD - Ig 0.6 % 0.0-0.9 % Final [facility] Hospital L ab (Internal) : [address] 02/07/2019 HbA1C BLD High Ha1C 6.2 % 4.0-6.0 % Final Nor th (Hemoglob Country in a1C), Hospital Lab Blood (Internal) : [address] [facility] 02/07/2019 BNP S High Nt-prob 695 pg/mL 0-450 Final N orth (B-type type casting machine operator pg/mL Country Natriuret Hospita l Lab ic (Internal) : Peptide), [address] [place] , [facility] port e N-termina l, Quant, Immunoass ay, Blood 02/07/2019 Lipid S - Chol 117 mg/dL 50-200 Final Nor th Panel, mg/dL [facility] Serum Hospital L ab (Internal) : [address] ? ? S - Trig 89 mg/dL 10-150 Final [place] mg/dL [facility] L ab (Internal) : [address] t ? ? S Low Hdl 35 mg/dL 40-60 Final [place] mg/dL [facility] Hospital L ab (Internal) : [address] ? ? S - Ldl 64 mg/dL 0-130 Final [place] mg/dL [facility] L ab (Internal) : [address] [facility] 02/07/2019 RBC BLD - [place] small ? Final [place] Morpholog Country y, Blood Hospital Lab (Internal) : [address] ? ? BLD - Poik occasional ? Final [place] [hpf] [facility] Hospital L ab (Internal) : [address] t 02/07/2019 Thyroid S High Tsh 6.85 0.47-4.68 Final No rth Amery, u[IU]/mL u[IU]/mL Coun [facility] Serum Hospital L ab (Internal) : [address] t 02/07/2019 Microalbu UR - Malb <7.0 mg/L 5.0-16.7 Final [place] min, mg/L [facility] Urine Hospital L ab (Internal) : [address] ? ? UR Low U-crea, 27 mg/dL 30-125 Final [place] Spot mg/dL [facility] L ab (Internal) : [address] t 02/07/2019 T4, Free, S - Ft4 1.41 NG/dL 0.78-2.19 Fin al [place] Serum NG/dL [facility] L ab (Internal) : [address] [facility] 02/07/2019 Venipunct ? No ? ? ? P_n c Primary ure observat Care ion [place] recorded [place]: [address] [facility] [place] 08/09/2018 HbA1C BLD High Ha1C 6.1 % 4.0-6.0 % Final [place] (Hemoglob [place] in a1C), Hospital Lab Blood (Internal) : [address] [facility] 02/08/2018 HbA1C BLD High Ha1C 6.1 % 4.0-6.0 % Final [place] (Hemoglob [place] in a1C), Hospital Lab Blood (Internal) : [address] [facility] 02/08/2018 TSH, S - Tsh 2.36 0.47-4.68 Final [place] Serum or u[IU]/mL u[IU]/mL Coun try Plasma Hospital L ab (Internal) : [address] 02/08/2018 Venipunct Blood ? Locatio Right ? ? P _nc Primary ure venous n Antecubital Care [place] ns: [address] [facility], [place] ? ? Blood ? Needle 21g ? ? P_nc Prim adamaris venous Vacutainer Care [place] ns: [address] [facility], [place] ? ? Blood ? Number 1 ? ? P_nc Prim adamaris venous of Care Attempts [place] ns: [address] [facility], [place] ? ? Blood ? Success Yes ? ? P_nc Cathy lali venous ful Care [place]: [address] [facility], [place] ? ? Blood ? Dressin Pressure ? ? P_nc P rimary venous g Band-aid Care Applied [place]: [address] [facility], [place] ? ? Blood ? Initial mandi ? ? P_nc Cathy lali venous s Care [place]: [address] [facility] [place] 08/11/2017 TSH, S ? Tsh 3.09 0.47-4.68 Final [place] th Serum or u[IU]/mL u[IU]/mL Coun try Plasma Hospital L ab (Internal) : [address] t 08/11/2017 HbA1C BLD High Ha1C 6.2 % 4.0-6.0 % Final [place] (Hemoglob [place] in a1C), Hospital Lab Blood (Internal) : [address] [facility] 02/16/2017 TSH, S Low Tsh 0.34 0.47-4.68 Final [place] th Serum or u[IU]/mL u[IU]/mL Coun try Plasma Hospital L ab (Internal) : [address] [facility] 11/17/2016 HbA1C BLD ? Ha1C 5.5 % 4.0-6.0 % Final [place] (Hemoglob [place] in a1C), Hospital Lab Blood (Internal) : [address] [facility] 11/17/2016 TSH, S ? Tsh 3.85 0.47-4.68 Final [place] Serum or u[IU]/mL u[IU]/mL Coun try Plasma Hospital L ab (Internal) : [address] [facility] 10/06/2016 Venipunct BLD ? Venpn* ? ? Final No rth ure [facility] L ab (Internal) : [address] [facility] 10/06/2016 HbA1C BLD ? Ha1C 5.7 % 4.0-6.0 % Final [place] (Hemoglob [place] in a1C), Hospital Lab Blood (Internal) : [address] [facility] 10/06/2016 RBC BLD ? Aniso moderate ? Final Nort h Morpholog Country y, Blood Hospital Lab (Internal) : [address] [facility] 10/06/2016 TSH, S High Tsh 6.95 0.47-4.68 Final [place] Serum or u[IU]/mL u[IU]/mL Coun try Plasma Hospital L ab (Internal) : [address] [facility] 10/06/2016 BNP S High Nt-prob 260 pg/mL 0-125 Final N orth (B-type type casting machine operator pg/mL [facility] Lab ic (Internal) : Peptide), [address] [facility] e N-termina l, Quant, Immunoass ay, Blood 10/06/2016 D-dimer, PLASMA High Dimq 7.33 mg/L 0.00-0.50 Final [place] Quant, mg/L [facility] L ab (Internal) : [address] [facility] 10/06/2016 CMP, S High g/r 109 mg/dL 74-106 Final [place] Serum or mg/dL [facility] L [facility] (Internal) : [address] ? ? S ? Bun 20 mg/dL 9-20 Final [place] mg/dL [facility] (Internal) : [address] t ? ? S ? Crea 0.80 mg/dL 0.66-1.25 Final [place] mg/dL [facility] L [facility] (Internal) : [address] t ? ? S ? Ca 9.0 mg/dL 8.4-10.2 Final [place] mg/dL [facility] (Internal) : [address] t ? ? S ? Na 139 mmol/L 137-145 Final [place] mmol/L [facility] (Internal) : [address] t ? ? S ? K 4.8 mmol/L 3.5-5.1 Final [place] mmol/L [facility] (Internal) : [address] t ? ? S ? Cl 101 mmol/L 98-107 Final [place] mmol/L [facility] (Internal) : [address] t ? ? S ? Tco2 24.0 mmol/L 22.0-30.0 Final No rth mmol/L [facility] L [facility] (Internal) : [address] t ? ? S ? Tp 8.0 g/dL 6.3-8.2 Final [place] g/dL [facility] (Internal) : [address] t ? ? S ? Alb 4.0 g/dL 3.5-5.0 Final [place] g/dL [facility] (Internal) : [address] t ? ? S ? Tbil 0.3 mg/dL 0.2-1.3 Final [place] mg/dL [facility] (Internal) : [address] t ? ? S ? Alp 102 U/L 38-126 Final [place] U/L [facility] (Internal) : [address] t ? ? S ? Alt 28 U/L 21-72 U/L Final [place] (Sgpt) [facility] (Internal) : [address] t ? ? S ? Ast 32 U/L 17-59 U/L Final [place] (Sgot) [facility] Hospital L ab (Internal) : [address] t 10/06/2016 CBC W/ BLD ? Wbc 5.2 10*3/uL 5.0-10.0 Final [place] Auto Diff 10*3/uL [facility] Hospital L ab (Internal) : [address] t ? ? BLD Low Rbc 3.63 4.60-6.00 Final [place] 10*6/uL 10*6/uL [facility] L ab (Internal) : [address] t ? ? BLD Low Hgb 10.7 g/dL 14.0-18.0 Final Nort h g/dL [facility] L ab (Internal) : [address] t ? ? BLD Low Hct 33.5 % 41.0-51.0 Final [facility] L ab (Internal) : [address] t ? ? BLD ? Mcv 92.3 fL 80.0-96.0 Final [facility] Hospital L ab (Internal) : [address] ? ? BLD ? Mch 29.5 pg 26.0-32.0 Final [place] pg [facility] Hospital L ab (Internal) : [address] ? ? BLD ? Mchc 31.9 g/dL 31.0-35.0 Final Nort h g/dL [facility] Hospital L ab (Internal) : [address] ? ? BLD High Rdw 17.6 % 11.5-14.5 Final [facility] L ab (Internal) : [address] ? ? BLD ? Plt 212 10*3/uL 130-450 Final Nort h 10*3/uL [facility] Hospital L ab (Internal) : [address] ? ? BLD ? Anc 3.01 ? Final [place] 10*3/uL [facility] Hospital L ab (Internal) : [address] ? ? BLD ? Neutro 57.5 % 40.0-75.0 Final [facility] L ab (Internal) : [address] ? ? BLD ? Lymph 25.6 % 20.0-50.0 Final [facility] L ab (Internal) : [address], [place] ? ? BLD ? [place] 9.6 % 2.0-10.0 Final [facility] L ab (Internal) : [address], [place] ? ? BLD ? Eos 5.9 % 1.0-6.0 % Final [facility] ab (Internal) : [address], [place] ? ? BLD ? Baso 1.0 % 0.0-1.0 % Final [facility] ab (Internal) : [address], [place] ? ? BLD ? Ig 0.4 % 0.0-0.9 % Final [facility] ab (Internal) : [address], [place] ? Venipunct ? Locatio Right ? ? P_nc Primary ure n Antecubital Care [place]: [address], [place] ? ? ? Needle 21g ? ? P_nc Prim adamaris Vacutainer Care [place]: [address], [place] ? ? ? Number 1 ? ? P_nc Prim adamaris of Care Attempts [place]: [address], [place] ? ? ? Success Yes ? ? P_nc Cathy lali varghese Care [place] ns: [address], [place] ? ? ? Dressin Pressure ? ? P_nc P rimary g Band-aid Care Applied [place]: [address], [place] ? ? ? Initial hj ? ? P_nc Cathy lali s Care [place] ns: [address], [place] ? Venipunct ? Locatio Right ? ? P_nc Primary ure n Antecubital Care [place] ns: [address], [place] ? ? ? Needle 21g ? ? P_nc Prim adamaris Vacutainer Care [place] ns: [address], [place] ? ? ? Number 1 ? ? P_nc Prim daamaris of Care Attempts [place]: [address], [place] ? ? ? Success Yes ? ? P_nc Cathy lali varghese Care [place]: [address], [place] ? ? ? Dressin Pressure ? ? P_nc P rimary g Band-aid Care Applied [place]: [address], [place] ? ? ? Initial hj ? ? P_nc Cathy lali s Care [place]: [address], [place] ? Venipunct ? Locatio Right ? ? P_nc Primary ure n Antecubital Care [place] ns: [address], [place] ? ? ? Needle 21g ? ? P_nc Prim adamaris Vacutainer Care [place] ns: [address], [place] ? ? ? Number 1 ? ? P_nc Prim adamaris of Care Attempts [place]: [address], [place] ? ? ? Success Yes ? ? P_nc Cathy lali varghese Care [place]: [address], [place] ? ? ? Dressin Pressure ? ? P_nc P rimary g Band-aid Care Applied [place]: [address], [place] ? ? ? Initial hj ? ? P_nc Cathy lali s Care [place]: [address], [place] ? Venipunct ? Locatio Right ? ? P_nc Primary ure n Antecubital Care [place]: [address], [place] ? ? ? Needle 21g ? ? P_nc Prim adamaris Vacutainer Care [place]: [address], [place] ? ? ? Number 1 ? ? P_nc Prim adamaris of Care Attempts [place]: [address], [place] ? ? ? Success Yes ? ? P_nc Cathy lali varghese Care [place]: [address], [place] ? ? ? Dressin Pressure ? ? P_nc P rimary g Band-aid Care Applied [place]: [address], [place] ? ? ? Initial hj ? ? P_nc Cathy escalera s Care [place]: [address], [place] ? Venipunct ? Locatio Right ? ? P_nc Primary ure n Antecubital Care [place]: [address], [place] ? ? ? Needle 21g ? ? P_nc Prim adamaris Vacutainer Care [place]: [address], [place] ? ? ? Number 1 ? ? P_nc Prim adamaris of Care Attempts [place]: [address], [place] ? ? ? Success Yes ? ? P_nc Cathy lali ful Care [place]: [address], [place] ? ? ? Dressin Pressure ? ? P_nc P rimary g Band-aid Care Applied [place]: [address], [place] ? ? ? Initial hj ? ? P_nc Cathy lali s Care [place]: [address], [place] ? Venipunct ? Locatio Right ? ? P_nc Primary ure n Antecubital Care [place]: [address], [place] ? ? ? Needle 21g ? ? P_nc Prim adamaris Vacutainer Care [place]: [address], [place] ? ? ? Number 1 ? ? P_nc Prim adamaris of Care Attempts [place]: [address], [place] ? ? ? Success Yes ? ? P_nc Cathy lali varghese Care [place]: [address], [place] ? ? ? Dressin Pressure ? ? P_nc P rimary g Band-aid Care Applied [place]: [address], [place] ? ? ? Initial HJ ? ? P_nc Cathy lali s Care [place]: [address], [place] ? Venipunct ? Locatio Left ? ? P_nc Primary ure n Antecubital Care [place]: [address], [place] ? ? ? Needle 21g ? ? P_nc Prim adamaris Vacutainer Care [place]: [address], [place] ? ? ? Number 1 ? ? P_nc Prim adamaris of Care Attempts [place]: [address], [place] ? ? ? Success Yes ? ? P_nc Cathy lali ful Care [place]: [address], [place] ? ? ? Dressin Pressure ? ? P_nc P rimary g Band-aid Care Applied [place]: [address], [place] ? ? ? Initial hj ? ? P_nc Cathy escalera s Care [place]: [address], [place] ? Venipunct ? Locatio Right ? ? P_nc Primary ure n Antecubital Care [place]: [address], [place] ? ? ? Needle 21g ? ? P_nc Prim adamaris Vacutainer Care [place]: [address], [place] ? ? ? Number 1 ? ? P_nc Prim adamaris of Care Attempts [place]: [address], [place] ? ? ? Success Yes ? ? P_nc Cathy lali ful Care [place]: [address], [place] ? ? ? Dressin Pressure ? ? P_nc P rimary g Band-aid Care Applied [place]: [address], [place] ? ? ? Initial kk ? ? P_nc Cathy lali s Care [place]: [address], [place] Past Encounters 08/14/2021 Knee Joint Painful on Movement; Myelodys plastic Syndrome (Clinical) Kenzie Simon, DO: [address] [facility], [place] [address], Ph. 03/18/2021 Cervico-occipital Neuralgia; Pain in Lef t Lower Limb Kenzie Simon, DO: [address] [facility], [place] [address], Ph. 01/24/2021 Artificial Knee Joint Present; Hypothyro idism Kenzie Simon, DO: [address] [facility], [place] [address], Ph. 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 08/21/2020 Anemia Kenzie Simon, DO: [address] [facility], [place] [address], Ph. 06/26/2020 Hypothyroidism Kenzie Simon, DO: [address] [facility], [place] [address], Ph. 05/24/2020 Artificial Knee Joint Present Kenzie Vilma Simon, DO: [address] [facility], [facility] [address], Ph. Social History Tobacco Smoking Status Never Smoker Vaccine List Vaccine Type COVID-19, mRNA, LNP-S, PF, 30 mcg/0.3 mL dose (coRank) 08/27/2020 09/16/2020 influenza, seasonal, injectable, preserv ative free 04/05/2009?0.5 mL pneumococcal polysaccharide PPV23 01/10/2013?0.5 mL Tdap 11/13/2010?0.5 mL 07/09/2021?0.5 mL Plan of Care Reminders Provider Appointments None ? ? recorded. Lab None ? ? recorded. Referral None ? ? recorded. Procedures None ? ? recorded. Surgeries None ? ? recorded. Imaging None ? ? recorded. Vitals 08/14/2021 03:00PM Follow Up 20 Height Weight BMI Blood Pressure 168.91 cm 112.04 kg 39.3 kg/m2 120/80 mm[Hg] 03/18/2021 02:40PM Follow Up 20 Height Weight BMI Blood Pressure 168.91 cm 103.87 kg 36.4 kg/m2 136/60 mm[Hg] 01/24/2021 02:20PM Follow Up 20 Height Weight BMI Blood Pressure 168.91 cm 99.34 kg 34.8 kg/m2 132/80 mm[Hg] 12/12/2020 08:20AM Follow Up 20 Height Weight BMI Blood Pressure 168.91 cm 102.51 kg 35.9 kg/m2 122/68 mm[Hg] 02/01/2020 10:20AM Acute 20 Height Weight BMI Blood Pressure 168.91 cm 101.6 kg 35.6 kg/m2 120/72 mm[Hg] 04/11/2019 10:20AM Follow Up 20 Height Weight BMI Blood Pressure 168.91 cm 107.95 kg 37.8 kg/m2 118/64 mm[Hg] 03/24/2019 10:20AM Acute 20 Height Weight BMI Blood Pressure 168.91 cm 98.88 kg 34.7 kg/m2 114/68 mm[Hg] 02/07/2019 10:00AM Same Day 20 Height Weight BMI Blood Pressure 168.91 cm 114.76 kg 40.2 kg/m2 118/68 mm[Hg] 10/19/2018 01:00PM Follow Up 20 Height Weight BMI Blood Pressure 168.91 cm 113.4 kg 39.7 kg/m2 124/78 mm[Hg] 08/09/2018 01:40PM Follow Up 20 Height Weight BMI Blood Pressure 168.91 cm 110.22 kg 38.6 kg/m2 118/82 mm[Hg] 02/08/2018 01:20PM Follow Up 20 Height Weight BMI Blood Pressure 168.91 cm 108.86 kg 38.2 kg/m2 138/80 mm[Hg] 08/11/2017 Height Weight Blood Pressure 168.91 cm 108.86 kg 124/68 mm[Hg] 02/16/2017 Weight Blood Pressure 109.77 kg 110/64 mm[Hg] 10/20/2016 Weight Blood Pressure 117.51 kg 130/84 mm[Hg] 10/06/2016 Weight Blood Pressure 116.57 kg 138/76 mm[Hg] 05/23/2015 Height Weight Blood Pressure 166.37 cm 100.7 kg 112/70 mm[Hg] 04/23/2015 Height Weight Blood Pressure 166.37 cm 109.77 kg 132/64 mm[Hg] 01/29/2015 Height Weight Blood Pressure 168.91 cm 104.78 kg 110/64 mm[Hg] 08/21/2014 Height Weight Blood Pressure 168.91 cm 105.23 kg 128/60 mm[Hg] 07/25/2014 Weight Blood Pressure 111.13 kg 124/80 mm[Hg] 07/10/2014 Height Weight Blood Pressure 168.91 cm 108.95 kg 120/70 mm[Hg] 05/22/2014 Height Weight Blood Pressure 168.91 cm 110.74 kg 128/80 mm[Hg] 04/23/2014 Weight Blood Pressure 112.94 kg 110/72 mm[Hg] 04/03/2014 Weight Blood Pressure 112.04 kg 128/78 mm[Hg] 03/20/2014 Height Weight Blood Pressure 168.91 cm 111.13 kg 120/72 mm[Hg] 02/27/2014 Weight Blood Pressure 109.77 kg 116/84 mm[Hg] 02/15/2014 Weight Blood Pressure 103.87 kg 130/80 mm[Hg] 01/23/2014 Weight Blood Pressure 117.03 kg 142/72 mm[Hg] 10/10/2013 Weight Blood Pressure 112.04 kg 118/66 mm[Hg] 09/25/2013 Weight Blood Pressure 111.81 kg 140/92 mm[Hg] 09/07/2013 Weight Blood Pressure 110.22 kg 130/84 mm[Hg] 08/16/2013 Height Weight Blood Pressure 168.91 cm 107.14 kg 131/67 mm[Hg] 07/27/2013 Weight Blood Pressure 108.86 kg 138/86 mm[Hg] 07/20/2013 Weight Blood Pressure 107.5 kg 142/98 mm[Hg] 07/06/2013 Weight Blood Pressure 111.58 kg 148/76 mm[Hg] 06/23/2013 Weight Blood Pressure 112.49 kg 122/78 mm[Hg] 03/06/2013 Weight Blood Pressure 112.94 kg 118/72 mm[Hg] 02/09/2013 Weight Blood Pressure 112.94 kg 124/70 mm[Hg] 01/17/2013 Weight Blood Pressure 115.21 kg 136/82 mm[Hg] 01/10/2013 Height Weight Blood Pressure 175.26 cm 115.67 kg 128/80 mm[Hg] 01/03/2013 Weight Blood Pressure 117.48 kg 136/78 mm[Hg] 01/27/2012 Blood Pressure 110/72 mm[Hg] 01/04/2012 Height Weight Blood Pressure 175.26 cm 112.04 kg 128/78 mm[Hg] 12/09/2010 Weight Blood Pressure 42.64 kg 110/60 mm[Hg] 11/13/2010 Height Weight Blood Pressure 175.26 cm 106.14 kg 132/72 mm[Hg] 10/09/2010 Height Weight Blood Pressure 175.26 cm 108.41 kg 126/72 mm[Hg] 09/10/2009 Blood Pressure 110/64 mm[Hg] 03/12/2009 Height Weight Blood Pressure 172.72 cm 107.95 kg 110/72 mm[Hg] 11/06/2008 Weight Blood Pressure 107.73 kg 120/60 mm[Hg] 09/06/2007 Weight Blood Pressure 108.86 kg 118/78 mm[Hg] 08/22/2007 Blood Pressure 134/84 mm[Hg] 08/11/2007 Weight Blood Pressure 110.22 kg 120/78 mm[Hg] 06/15/2007 Weight Blood Pressure 108.86 kg 120/86 mm[Hg] 11/08/2006 Blood Pressure (1) 120/80 mm[Hg] (2) 120/70 mm[Hg] 02/10/2006 Height Weight Blood Pressure 172.72 cm 110.22 kg 130/80 mm[Hg] 08/28/2005 Weight Blood Pressure 103.42 kg 112/70 mm[Hg] 07/07/2005 Weight Blood Pressure 102.97 kg 116/68 mm[Hg]
[2021-10-09] MEDS: Normal Saline Flush 10 ML SYR IVP ×2 (08:42→11:28)
[2021-10-09 08:50] LABS: Abs Immature Grans 0.58 10^3/uL (0.0-0.06); HCT 23.7 % (40.0-50.0); HGB 7.9 g/dL (13.5-17.5); MCH 29.6 pg (27.0-33.0); MCHC 33.3 % (32.0-36.0); MCV 89 fL (80-95); RBC 2.67 10^6/uL (4.36-5.78); RDW 15.4 % (11.8-14.1); RDW-SD 49.5 fL; WBC 2.45 10^3/uL (4.4-10.8)
[2021-10-09 09:00] LABS: Platelet Count 20 10^3/uL (130-400)
[2021-10-09 09:22] LABS: Absolute Basophil Count 0.02 10^3/uL (0.0-0.2); Absolute Eosinophil Count 0.02 10^3/uL (0.0-0.7); Absolute Lymphocyte Count 0.61 10^3/uL (1.2-3.4); Absolute Monocyte Count 0.27 10^3/uL (0.1-0.8); Bands % 12
[2021-10-09 09:23] LABS: Metamyelocytes % 5; Myelocytes % 15; Other Cells % 1; RBC Morphology Normal
[2021-10-09 09:24] LABS: Diff Comment Manual Differential
[2021-10-09 09:32] VITALS: BP 126/74; PULSE 73; RESP 16; TEMP 36; O2SAT 96
[2021-10-09 09:47] VITALS: BP 92/63; PULSE 70; RESP 16; TEMP 36; O2SAT 97
[2021-10-09 10:17] VITALS: BP 114/67; PULSE 71; RESP 16; TEMP 35.8; O2SAT 97
[2021-10-09 11:18] VITALS: BP 141/75; PULSE 68; RESP 20; TEMP 35.9; O2SAT 98
[2021-10-13] MEDS: Normal Saline Flush 10 ML SYR IVP (08:49)
[2021-10-13 08:58] LABS: Abs Immature Grans 0.55 10^3/uL (0.0-0.06); HCT 24.3 % (40.0-50.0); MCH 29.1 pg (27.0-33.0); MCHC 32.9 % (32.0-36.0); MCV 88 fL (80-95); RBC 2.75 10^6/uL (4.36-5.78); RDW 16.1 % (11.8-14.1); RDW-SD 52.6 fL
[2021-10-13 09:27] LABS: Absolute Eosinophil Count 0.15 10^3/uL (0.0-0.7); Absolute Lymphocyte Count 0.66 10^3/uL (1.2-3.4); Absolute Monocyte Count 0.15 10^3/uL (0.1-0.8); Absolute Neutrophil Count 1.71 10^3/uL (1.2-6.7); Atypical Lymphocytes % 1; Bands % 8; Metamyelocytes % 1; Myelocytes % 6; Other Cells % 4; Platelet Count 22 10^3/uL (130-400)
[2021-10-13 09:28] LABS: Diff Comment Manual Differential; RBC Morphology Normal
[2021-10-23] MEDS: Normal Saline Flush 10 ML SYR IVP (08:45)
[2021-10-23 09:18] LABS: Abs Immature Grans 0.79 10^3/uL (0.0-0.06); HCT 24.2 % (40.0-50.0); HGB 7.9 g/dL (13.5-17.5); MCH 28.8 pg (27.0-33.0); MCHC 32.6 % (32.0-36.0); MCV 88 fL (80-95); RBC 2.74 10^6/uL (4.36-5.78); RDW 15.5 % (11.8-14.1); RDW-SD 49.4 fL; WBC 3.38 10^3/uL (4.4-10.8)
[2021-10-23 09:26] LABS: ALT 72 U/L (16-63); AST 44 U/L (15-37); Albumin 2.6 g/dL (3.4-5.0); Alkaline Phosphatase 138 U/L (46-116); Anion Gap 10.7 mmol/L (3-11); BUN 33 mg/dL (7-18); Bilirubin, Total 1.7 mg/dL (0.2-1.0); CO2 28.3 mmol/L (21.0-32.0); CREATININE 1.2 mg/dL (0.70-1.30); Calcium 11.5 mg/dL (8.5-10.1); Chloride 98 mmol/L (98-107); Glucose 173 mg/dL (74-106); Potassium 3.4 mmol/L (3.5-5.1); Sodium 137 mmol/L (136-145); Total Protein 7.7 g/dL (6.4-8.2)
[2021-10-23 09:37] LABS: Absolute Lymphocyte Count 0.68 10^3/uL (1.2-3.4); Absolute Monocyte Count 0.07 10^3/uL (0.1-0.8); Bands % 18; Metamyelocytes % 4; Myelocytes % 4
[2021-10-23 09:38] LABS: Diff Comment Manual Differential; Other Cells % 2; RBC Morphology Normal
[2021-10-23 09:40] LABS: Platelet Count 27 10^3/uL (130-400)
[2021-10-23 10:28] VITALS: BP 101/55; PULSE 103; RESP 17; TEMP 36.7; O2SAT 94
[2021-10-23 10:43] VITALS: BP 117/65; PULSE 83; RESP 18; TEMP 36.3; O2SAT 93
[2021-10-23 11:13] VITALS: BP 108/63; PULSE 52; RESP 10; TEMP 36.7; O2SAT 94
--- NOTE | 2021-10-24 14:44 | NUR.NOTE ---
Nursing Note: 10/24/21 [id number] This RN spoke with Bety Greer RN at [facility] re: Abdiel Noriega. Advised [facility] that our infusion center cannot safely care for this patient, given that this pt is now nonambulatory and a max assist needed for any/all transfers Pt required a sit to stand lift with 2 assist and did not do well with the transfer per staff. Required a bed with a bed alarm which pt kept setting off alarm. As assessment noted, pt lethargic, unable to keep eyes open and semi-coherent. Pt daughter very upset with this news. Explored other options with Bety. Questioned if SNF could draw labs twice weekly and if transfusions needed ? ambulance transfer to [facility], which is only 2 [address] from [facility] vs 50 [address] from [facility]. Bety will speak with Dr. Dover re: above. All of pt's upcoming appointments discontinued. Liliana Hope RN director of med surg and infusion updated on above conversation as well. Liz was in unit assisting with care of pt and agrees that we cannot safely manage pt care at this time. FAYE Powell
== END 2021-11-04 23:59 | disposition home or self-care (01) ==
LOC: INF 10:00
PROVIDERS: PCP Neuromusculoskeletal Medicine & OMM; Visit Provider Nurse Practitioner Family
DX: D46.Z Other myelodysplastic syndromes (principal); M05.00 Felty's syndrome, unspecified site; D46.9 Myelodysplastic syndrome, unspecified; Z45.2 Encounter for adjustment and management of vascular access device
CPT/HCPCS: 36416; 36430; 36591; 80053; 82962; 83690; 86850; 86900; 86901; 86920; 87637; 93005; 96360; 99284; 71045; 81003; 81015; 83735; 84484; 85025; P9016

== ENCOUNTER 2021-10-23 11:16 | Emergency (ER) | payer MEDICARE, MEDICAID, SELFPAY ==
[2021-10-23] VITALS (34 sets, daily range): BP systolic 97–113; BP diastolic 49–68; PULSE 64–77; RESP 13–29; TEMP 36.6–36.9; O2SAT 93–96
--- NOTE | 2021-10-23 11:15 | RT.EKG_ITS ---
APPROVED REPORT Exam: Resting ECG Reason for Exam: WEAKNESS Patient Location: E HR:76 bpm ECG Measurements Heart Rate 76 AXIS NE 147 P -42 QRSd 102 QRS 13 QT 394 T 7 QTc 443 Conclusion Sinus rhythm...normal P axis, V-rate 60- 99. Sinus. Normal axis. No STEMI. I have reviewed and interpreted ECG and agree with software generated interpretation.
--- NOTE | 2021-10-23 11:17 | ED.GENADUL_ITS ---
Discharge Plan Disposition Patient Disposition: HOME Condition: Stable Discharge Details Clinical Impression: Fatigue, History of myelodysplastic syndrome Primary Care Provider: Amarjit Galeana ED Provider: Chelsy Barnes Home Meds and New Rx's Prescriptions: Continued multivitamin Tablet 1 tab PO DAILY furosemide 40 mg Tablet 40 mg PO DAILY metoprolol succinate 50 mg Tablet Extended Release 24 Hr 50 mg PO DAILY omeprazole 40 mg Capsule,Delayed Release(Dr/Ec) 40 mg PO DAILY ferrous sulfate 325 mg (65 mg iron) Tablet 325 mg PO DAILY gabapentin 300 mg Capsule 600 mg PO BID pravastatin 20 mg Tablet 20 mg PO DAILY sertraline 50 mg Tablet 50 mg PO DAILY Flovent HFA 110 mcg/actuation Hfa Aerosol Inhaler 2 puff INHALATION BID Incruse Ellipta 62.5 mcg/actuation Blister With Device 1 inh INHALATION DAILY spironolactone 50 mg tablet 50 mg PO DAILY levothyroxine 150 mcg capsule 200 mcg PO DAILY nitroglycerin 0.4 mg tablet, sublingual 0.4 mg SL Q5M PRN rifampin 300 mg capsule 300 mg PO BID sennosides [senna] 8.6 mg tablet 17.2 mg PO BID PRN acetaminophen 500 mg capsule 1,000 mg PO BID ciprofloxacin HCl 500 mg Tablet 500 mg PO BID Label Comments: Pt reports this was prescribed by [facility] for prophylaxis for multiple knee replacements aspirin [Aspirin Low Dose] 81 mg Tablet,Delayed Release (Dr/Ec) 81 mg PO BID penicillin V potassium 500 mg tablet 1 tab DIRECTED Label Comments: TAKE ONE TABLET BY MOUTH TWICE A DAY doxycycline hyclate 100 mg tablet 1 tab DIRECTED Label Comments: TAKE ONE TABLET BY MOUTH TWICE A DAY Discharge Instructions Instructions: Fatigue (ED) Additional Instructions: Your lab work, EKG and imaging today is reassuring and shows no evidence of acute concerning findings. Your oncology team at [facility] will follow up with you for reevaluation. Return immediately to the emergency department if you develop any worsening or new concerning symptoms. Discharge Data Discharge Date/Time-TO BE ENTERED AT DEPARTURE: 10/23/21 14:50 Discharge Physician: Chelsy Barnes Medical Decision Making 81-year-old male with a history of myelodysplastic syndrome, COPD, depression, NSTEMI, CARIDAD, coronary artery stent who presents from the infusion center upstairs for feeling weak and looking villegas. Review of [facility] records note that patient was discharged from [facility] on 10/21/2021 to a retirement facility after being admitted on 10/14/21 for recurrent falls, weakness and leg swelling and discharged home on furosemide 40 mg bid. He received 1 unit PRBCs during that admission with plan for continued outpatient transfusions. Patient arrived to the ED with PRBC transfusion running. His vitals are within normal limits. He appears generally fatigued but nontoxic. He is oriented x2. No obvious acute trauma noted on exam. He has chronic appearing lymphedema to his bilateral lower extremities but there is no significant pitting edema or cellulitis. Differential diagnosis includes acute on chronic anemia, dehydrat ion, UTI, pneumonia, COVID, fluvid or acute worsening of patient's chronic conditions. We will place an IV, obtain screening labs, urinalysis, portable chest x-ray and fluvid. Discussed w/ pt's daughter Cristina at bedside who states that patient appears at his baseline and appears more comfortable. She states his color appears improved. She does feel comfortable taking him back to the rehab if cleared for discharge. Labs and imaging reviewed and unremarkable for acute findings. White blood cell count 2.53, hemoglobin 7.3 and platelet count 20 which is close to his recent baseline. He finished 1 unit PRBC transfusion here so would suspect his hemoglobin to increase. Chest x-ray negative for acute disease. Urinalysis negative for UTI. Fluvid negative. Case discussed with [facility] oncology --no recommendations for any additional blood products at this time. Recommend follow-up with oncology as outpatient. Daughter states he has transfusion scheduled on Wednesday and so we will have the lab draw this Wednesday. [facility] oncology is not requesting any repeat hemoglobin after blood transfusion here today. Usual and customary return precautions given prior to discharge. Medical Records Medical records reviewed: Yes I reviewed the patient's medical records. Imaging Data Radiologic Study: Radiologist's impression: XR PORTABLE CHEST AP CLINICAL HISTORY:? weakness, r/o acute disease TECHNIQUE:? 2D digital imaging was performed of the chest. One image was obtained.? An AP view was obtained. COMPARISON:? CR XR CHEST 2V PA ? LATERAL from 06/02/2019 FINDINGS: MEDIASTINUM: Normal.? HEART: Normal. PULMONARY VASCULATURE: Normal. LUNGS: Clear.? PLEURAL SPACE: No pleural effusion or pneumothorax. BONE:Within normal limits for the patient's age. OTHER FINDINGS:The tip of the indwelling central venous catheter is in good position at the junction of the superior vena cava and right atrium. ? IMPRESSION: No acute pulmonary findings. Lab Data Lab results reviewed: Yes I reviewed the patient's lab results. Labs: Laboratory Tests Range/Units 10/23/21 10/23/21 10/23/21 11:33 11:33 11:33 WBC (4.4-10.8) 10^3/uL 2.53 L RBC (4.36-5.78) 10^6/uL 2.54 L Hgb (13.5-17.5) g/dL 7.3 L Hct (40.0-50.0) % 22.2 L MCV (80-95) fL 87 MCH (27.0-33.0) pg 28.7 MCHC (32.0-36.0) % 32.9 RDW (11.8-14.1) % 15.7 H Plt Count (130-400) 10^3/uL 20 L* MPV (8.0-11.0) fL Immature Gran % 0.0 Neutrophils % 52.0 Band Neutrophils % 12 Lymphocytes % 17.0 Atypical Lymphs % 2 Monocytes % 4.0 Eosinophils % 2.0 Basophils % 0.0 Metamyelocytes % 5 Myelocytes % 2 Other Cells % 4 Nucleated RBC % (0.0-0.3) % 0.0 Absolute Neutrophils (1.2-6.7) 10^3/uL 1.62 Absolute Lymphocytes (1.2-3.4) 10^3/uL 0.48 L Absolute Monocytes (0.1-0.8) 10^3/uL 0.10 Absolute Eosinophils (0.0-0.7) 10^3/uL 0.05 Absolute Basophils (0.0-0.2) 10^3/uL 0.00 RBC Morphology Normal Sodium (136-145) mmol/L 141 Potassium (3.5-5.1) mmol/L 3.5 Chloride (98-107) mmol/L 100 Carbon Dioxide (21.0-32.0) mmol/L 30.6 Anion Gap (3-11) mmol/L 10.4 BUN (7-18) mg/dL 34 H Creatinine (0.70-1.30) mg/dL 1.2 Estimated GFR/1.73 m2 (mL/min/1.73m2) 58.40 Glucose (74-106) mg/dL 182 H Calcium (8.5-10.1) mg/dL 11.0 H Magnesium Cancelled 1.9 Total Bilirubin (0.2-1.0) mg/dL 1.6 H AST (15-37) U/L 38 H ALT (16-63) U/L 63 Alkaline Phosphatase (46-116) U/L 122 H Troponin I Cancelled < 50 Total Protein (6.4-8.2) g/dL 6.9 Albumin (3.4-5.0) g/dL 2.4 L Lipase Cancelled 19 Urine Color (Yellow) Urine Clarity (Clear) Urine pH (5-8) Ur Specific [place] (1.005-1.025) Urine Protein (Negative) mg/dL Urine Ketones (Negative) mg/dL Urine Blood (Negative) Urine Nitrite (Negative) Urine Bilirubin (Negative) Urine Urobilinogen (Up TO 0.2) EU/dL Ur Leukocyte Esterase (Negative) Urine RBC (0-2) HPF Urine WBC (0-5) HPF Ur Epithelial Cells (Negative) HPF Urine Crystals (Negative) HPF Urine Bacteria (Negative) HPF Urine Casts (Negative) LPF Urine Mucus (Negative) Ur Culture Indicated? Urine Glucose (Negative) mg/dL COVID-19 Source SARS-CoV-2 (PCR) (Negative) Influenza Type A (PCR) (Negative) Influenza Type B (PCR) (Negative) RSV (PCR) (Negative) Range/Units 10/23/21 10/23/21 12:12 13:35 WBC (4.4-10.8) 10^3/uL RBC (4.36-5.78) 10^6/uL Hgb (13.5-17.5) g/dL Hct (40.0-50.0) % MCV (80-95) fL MCH (27.0-33.0) pg MCHC (32.0-36.0) % RDW (11.8-14.1) % Plt Count (130-400) 10^3/uL MPV (8.0-11.0) fL Immature Gran % Neutrophils % Band Neutrophils % Lymphocytes % Atypical Lymphs % Monocytes % Eosinophils % Basophils % Metamyelocytes % Myelocytes % Other Cells % Nucleated RBC % (0.0-0.3) % Absolute Neutrophils (1.2-6.7) 10^3/uL Absolute Lymphocytes (1.2-3.4) 10^3/uL Absolute Monocytes (0.1-0.8) 10^3/uL Absolute Eosinophils (0.0-0.7) 10^3/uL Absolute Basophils (0.0-0.2) 10^3/uL RBC Morphology Sodium (136-145) mmol/L Potassium (3.5-5.1) mmol/L Chloride (98-107) mmol/L Carbon Dioxide (21.0-32.0) mmol/L Anion Gap (3-11) mmol/L BUN (7-18) mg/dL Creatinine (0.70-1.30) mg/dL Estimated GFR/1.73 m2 (mL/min/1.73m2) Glucose (74-106) mg/dL Calcium (8.5-10.1) mg/dL Magnesium Total Bilirubin (0.2-1.0) mg/dL AST (15-37) U/L ALT (16-63) U/L Alkaline Phosphatase (46-116) U/L Troponin I Total Protein (6.4-8.2) g/dL Albumin (3.4-5.0) g/dL Lipase Urine Color (Yellow) Yellow Urine Clarity (Clear) Sl Cloudy Urine pH (5-8) 5.5 Ur Specific [place] (1.005-1.025) 1.025 Urine Protein (Negative) mg/dL 30 H Urine Ketones (Negative) mg/dL Negative Urine Blood (Negative) Negative Urine Nitrite (Negative) Negative Urine Bilirubin (Negative) Small H Urine Urobilinogen (Up TO 0.2) EU/dL 1.0 H Ur Leukocyte Esterase (Negative) Negative Urine RBC (0-2) HPF Negative Urine WBC (0-5) HPF Negative Ur Epithelial Cells (Negative) HPF Few Urine Crystals (Negative) HPF Few Amorphous Urine Bacteria (Negative) HPF Negative Urine Casts (Negative) LPF 10-20 Hyaline Urine Mucus (Negative) Trace Ur Culture Indicated? No Urine Glucose (Negative) mg/dL Negative COVID-19 Source Nasopharynx SARS-CoV-2 (PCR) (Negative) Negative Influenza Type A (PCR) (Negative) Negative Influenza Type B (PCR) (Negative) Negative RSV (PCR) (Negative) Negative ECG Data Attestation: I personally reviewed and interpreted this ECG (s) as follows: Interpretation: Rate of 76, sinus, no STEMI. HPI General Date/Time Provider Initiated Documentation: 10/23/21 11:16 . Limitations to Documentation: no limitations . Information obtained by: patient . HPI Narrative: Patient is a 81-year-old male with a history of myelodysplastic syndrome, COPD, degenerative disc disease, depression, GERD, hypothyroidism, obstructive sleep apnea who presents from the infusion center for weakness and looking villegas. Review of [facility] records note that patient was discharged from there on 10/21/21 after being hospitalized for weakness and swelling in his legs. He had been discharged on Lasix 40 mg twice daily. It was reported that he had a fall last night and was uninjured but combative. Patient currently denies any acute pain but states he does feel tired. Related Data Home Medications Medication Instructions Recorded Confirmed ferrous sulfate 325 mg (65 mg 325 mg PO DAILY 03/03/19 10/23/21 iron) tablet fluticasone propionate 110 2 puff inhalation BID 03/03/19 10/23/21 mcg/actuation HFA aerosol inhaler (Flovent HFA) furosemide 40 mg tablet 40 mg PO DAILY 03/03/19 10/23/21 gabapentin 300 mg capsule 600 mg PO BID 03/03/19 10/23/21 metoprolol succinate 50 mg 50 mg PO DAILY 03/03/19 10/23/21 tablet,extended release 24 hr multivitamin 1 tab PO DAILY 03/03/19 10/23/21 omeprazole 40 mg capsule,delayed 40 mg PO DAILY 03/03/19 10/23/21 release pravastatin 20 mg tablet 20 mg PO DAILY 03/03/19 10/23/21 sertraline 50 mg tablet 50 mg PO DAILY 03/03/19 10/23/21 umeclidinium 62.5 mcg/actuation 1 inh inhalation DAILY 03/03/19 10/23/21 blister powder for inhalation (Incruse Ellipta) levothyroxine 150 mcg capsule 200 mcg PO DAILY 03/22/19 10/23/21 nitroglycerin 0.4 mg sublingual 0.4 mg sublingual Q5M PRN 03/22/19 10/23/21 tablet rifampin 300 mg capsule 300 mg PO BID 03/22/19 06/28/20 sennosides 8.6 mg tablet (senna) 17.2 mg PO BID PRN 03/22/19 10/23/21 aspirin 81 mg tablet,delayed 81 mg PO BID 06/02/19 10/23/21 release (Aspirin Low Dose) ciprofloxacin HCl 500 mg tablet 500 mg PO BID 06/02/19 06/28/20 acetaminophen 500 mg capsule 1,000 mg PO BID 06/20/19 10/23/21 spironolactone 50 mg tablet 50 mg PO DAILY 06/20/19 10/23/21 doxycycline hyclate 100 mg tablet 1 tab DIRECTED 10/23/21 10/23/21 penicillin V potassium 500 mg 1 tab DIRECTED 10/23/21 10/23/21 tablet Allergies Allergy/AdvReac Type Severity Reaction Status Date / Time Iodine and Iodide Containing Allergy Unknown Unverified 10/23/21 12:20 Produc rifampin AdvReac Unverified 10/23/21 12:20 General Stated Complaint: GenMedical SAADIA: 3 Review of Systems All systems reviewed & are unremarkable except as noted in HPI and below Constitutional Constitutional: Denies chills, Denies excessive sweating, Reports fatigue, Denies fever(s), Reports weakness and Denies weight loss Eyes Eyes: Reports system reviewed and no additional complaints, except as documented and Denies blurry vision ENT Ears, Nose, Mouth, and Throat: Denies vertigo, Denies dizziness, Denies otalgia, Denies nasal congestion, Denies sore throat and Denies throat swelling Cardiovascular Cardiovascular: Denies chest pain, Denies syncope, Denies rapid heart rate and Denies dyspnea Respiratory Respiratory: Denies chest congestion, Denies cough, Denies pain on inspiration and Denies dyspnea Gastrointestinal Gastrointestinal: Denies abdominal pain, Denies diarrhea and Denies vomiting Genitourinary Genitourinary: Denies hematuria, Denies dysuria and Denies flank pain Musculoskeletal Musculoskeletal: Denies back pain and Denies joint swelling Integumentary/Breasts Skin/Breast: Denies lesions and Denies rash Neurologic Neurologic: Denies behavioral changes, Denies confusion, Denies vertigo, Denies dizziness, Denies syncope, Denies localized weakness and Reports weakness Psychiatric Psychiatric: Denies behavioral changes, Denies confusion and Denies depression Endocrine Endocrine: Denies excessive sweating and Reports fatigue Hematologic/Lymphatic Hematologic/Lymphatic: Denies easy bruising and Denies lymphadenopathy Allergic/Immunologic Allergic/Immunologic: Denies throat swelling PFSH All Active Problems (Updated 10/23/21 @ 14:19 by Chelsy Barnes DO) Fatigue (Acute) History of myelodysplastic syndrome (Acute) HTN (hypertension) (Chronic) Hyperlipidemia (Acute) CAD (coronary artery disease) (Chronic) Medical History (Updated 10/23/21 @ 14:19 by Chelsy Barnes DO) Acute hypoxemic respiratory failure Anemia Atherosclerosis of coronary artery without angina pectoris Bilateral edema of lower extremity Cervical disc disorder Cervical facet joint syndrome Cervical spondylosis without myelopathy 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 Coagulase-negative staphylococcal infection COPD (chronic obstructive pulmonary disease) Demand ischemia Depression Depressive disorder Diabetes mellitus type II, controlled, with no complications DJD (degenerative joint disease) DJD (degenerative joint disease) of knee DVT (deep venous thrombosis) GERD (gastroesophageal reflux disease) Hyperplasia, prostate Hypothyroidism Infection of left knee Intermittent claudication of lower extremity due to atherosclerosis NSTEMI (non-ST elevated myocardial infarction) (~02/2019) Obesity Occipital neuralgia CARIDAD (obstructive sleep apnea) Pneumonia Reactive airway disease Shock Surgical History Artificial knee joint present H/O heart artery stent (~2007) History of revision of total knee arthroplasty Family History Mother Diabetes Father , 80 Heart disease Sister Cancer Social History Smoking/Tobacco Use Status: Never Smoking risk assessment performed?: Yes Alcohol Intake: never Drug use: Never Substance use type: does not use Do you feel safe at home: Yes Do you feel safe in your relationship?: Yes Exam Const General: cooperative and no acute distress Orientation: alert, awake, oriented to person, oriented to place and not oriented to time [facility] Head: normal to inspection Ears: hearing grossly normal bilaterally, external ears normal and TM's normal bilaterally General nose exam: external nose normal Face and sinus: normal facial exam Mouth: oral mucosae normal Teeth and gingiva: dentition normal Throat: posterior oropharynx normal Eyes General: appearance normal, both eyes and all related structures Eyelids: eyelids normal Pupils: PERRL EOM: EOM intact bilaterally Neck Neck: normal visual inspection Lymphatic: no lymphadenopathy noted Chest Chest: normal inspection of the chest Resp Effort & Inspection: normal respiratory effort and able to speak in complete sentences Auscultation: clear to auscultation bilaterally Cardio Rate: regular rate Rhythm: regular rhythm GI Inspection: normal to inspection Palpation: soft, not firm, no guarding, no hepatosplenomegaly, no masses and nontender Auscultation: normal bowel sounds Back/Spine/Pelvis Back: no CVA tenderness Thoracic/Lumbar Spine: thoracic and lumbar spine normal to inspection, No thoracic spinal tenderness and No lumbar spinal tenderness Skin General skin exam: no rashes or lesions noted Neuro General: patient alert and patient awake Cognition: normal cognition Speech: speech normal Gait: normal gait Motor: muscle tone normal throughout Sensory Exam: no sensory deficits noted Extrem General: full ROM and capillary refill normal Shoulder/upper arm images: 1. Purpleish and yellowish ecchymosis consistent with old injury. No significant pain with range of motion. No deformity. Other: Chronic appearing skin changes to the bilateral lower extremities consistent with lymphedema. There is no erythema or pitting edema noted. Bilateral DP pulses intact Psych Appearance: grossly normal Mental Status: mental status grossly normal Speech and Movement: speech and movement normal Affect: normal affect Thought Process: normal
[2021-10-23 11:42] LABS: HCT 22.2 % (40.0-50.0); HGB 7.3 g/dL (13.5-17.5); MCH 28.7 pg (27.0-33.0); MCHC 32.9 % (32.0-36.0); MCV 87 fL (80-95); RBC 2.54 10^6/uL (4.36-5.78); RDW 15.7 % (11.8-14.1); RDW-SD 50.9 fL; WBC 2.53 10^3/uL (4.4-10.8)
[2021-10-23 11:56] LABS: ALT 63 U/L (16-63); AST 38 U/L (15-37); Albumin 2.4 g/dL (3.4-5.0); Alkaline Phosphatase 122 U/L (46-116); Anion Gap 10.4 mmol/L (3-11); BUN 34 mg/dL (7-18); Bilirubin, Total 1.6 mg/dL (0.2-1.0); CO2 30.6 mmol/L (21.0-32.0); CREATININE 1.2 mg/dL (0.70-1.30); Chloride 100 mmol/L (98-107); Glucose 182 mg/dL (74-106); Lipase 19 U/L (73-393); Magnesium 1.9 mg/dL (1.8-2.4); Potassium 3.5 mmol/L (3.5-5.1); Sodium 141 mmol/L (136-145); Total Protein 6.9 g/dL (6.4-8.2); Troponin I < 50 ng/L (<or=60)
[2021-10-23 12:00] LABS: Absolute Eosinophil Count 0.05 10^3/uL (0.0-0.7); Absolute Lymphocyte Count 0.48 10^3/uL (1.2-3.4); Absolute Neutrophil Count 1.62 10^3/uL (1.2-6.7); Atypical Lymphocytes % 2; Bands % 12; Metamyelocytes % 5; Myelocytes % 2; Platelet Count 20 10^3/uL (130-400)
[2021-10-23 12:01] LABS: Diff Comment Manual Differential; Other Cells % 4; RBC Morphology Normal
--- NOTE | 2021-10-23 12:39 | DI.RAD_ITS ---
Exam(s) XR PORTABLE CHEST AP EXAM: XR PORTABLE CHEST AP CLINICAL HISTORY: weakness, r/o acute disease TECHNIQUE: 2D digital imaging was performed of the chest. One image was obtained. An AP view was ob tained. COMPARISON: CR XR CHEST 2V PA LATERAL from 06/02/2019 FINDINGS: MEDIASTINUM: Normal. HEART: Normal. PULMONARY VASCULATURE: Normal. LUNGS: Clear. PLEURAL SPACE: No pleural effusion or pneumothorax. BONE:Within normal limits for the patient's age. OTHER FINDINGS:The tip of the indwelling central venous catheter is in good position at the junction of the superior vena cava and right atrium. IMPRESSION: No acute pulmonary findings. DATA REPOSITORY: RADIATION DOSE DELIVERED:
[2021-10-23] MEDS: Normal Saline 250 ML IV (12:45)
[2021-10-23 13:00] LABS: COVID-19 PCR Negative (Negative); Influenza A PCR Negative (Negative); Influenza B PCR Negative (Negative); RSV PCR Negative (Negative)
[2021-10-23 13:02] LABS: Source Nasopharynx
--- NOTE | 2021-10-23 13:07 | NUR.NOTE ---
PRBC infusion completed. 1245. Family at bedside. pt resting quietly. NAD noted. Will CTM
[2021-10-23 13:49] LABS: Bilirubin Small (Negative); Blood Negative (Negative); Clarity Sl Cloudy (Clear); Glucose Negative (Negative); Ketones Negative (Negative); Leukocyte Esterase Negative (Negative); Nitrite Negative (Negative); Specific Gravity 1.025 (1.005-1.025); pH 5.5 (5-8)
[2021-10-23 14:04] LABS: Bacteria Negative HPF (Negative); C & S Indicated? No; Casts 10-20 Hyaline LPF (Negative); Crystals Few Amorphous HPF (Negative); Epithelial Cells Few HPF (Negative); Mucus Trace (Negative); RBC Negative HPF (0-2); WBC Negative HPF (0-5)
--- NOTE | 2021-10-23 14:15 | NUR.NOTE ---
set up with meal tray
[2021-10-23] MEDS: Heparin 500 UNITS/5 ML SYRINGE (15:00)
== END 2021-10-23 14:50 | disposition home or self-care (01) ==
PROVIDERS: Emergency Provider Physician Assistant; PCP Neuromusculoskeletal Medicine & OMM
DX: D46.9 Myelodysplastic syndrome, unspecified (principal); R53.1 Weakness
CPT/HCPCS: 36416; 80053; 82962; 83690; 87637; 93005; 96360; 99284; 71045; 81003; 81015; 83735; 84484; 85025; 93010